=== PATIENT | male | born 1945 | race American Indian/Alaskan Native ===

== ENCOUNTER 2021-10-06 22:16 | Inpatient (IN) | payer MEDICARE ==
--- NOTE | 2021-10-06 23:12 | Emergency Department Report ---
ED General Adult HPI - General Chief complaint: Recheck/Abnormal Lab/Rx Stated complaint: ABNORMAL LABS, LOW HEMAGLOBIN Time Seen by Provider: 10/06/21 22:47 Source: EMS, old records reviewed (Provided by [facility], no previous record here) Mode of arrival: Stretcher Limitations: Physical Limitation - History of Present Illness Initial comments: 76-year-old male presents from [facility] for anemia identified on lab draw. Patient hemoglobin 5.3. Patient denies any significant complaints. He states that he has some mild abdominal pain secondary to constipation but had a bowel movement today. He denies melena, hematochezia, or hematemesis. His current medications include but not limited to aspirin 81 mg and Eliquis 2.5 mg twice daily for DVT. He is oriented to self, states year is 2020, he did not know why he was in the hospital today SC labs 10/06/21 1:50 pm: hematocrit 19.6, MCV 88, BUN 65 creatinine 1.8 Severity scale (0 -10): 0 - Related Data Allergies Allergy/AdvReac Type Severity Reaction Status Date / Time No Known Allergies Allergy Verified 10/06/21 22:36 ED Review of Systems ROS: Stated complaint: ABNORMAL LABS, LOW HEMAGLOBIN Other details as noted in HPI Comment: All other systems reviewed and negative ED Past Medical Hx - Past Medical History Previous Medical History?: Yes Hx Hypertension: Yes Hx Diabetes: Yes Hx Deep Vein Thrombosis: Yes Hx Renal Disease: Yes (Chronic kidney disease stage IV) Hx Dementia: Yes Additional medical history: Obstructive and reflux uropathy, anemia, GERD, sarcopenia, muscle weakness, right humerus fracture, history of COVID-19 with acute respiratory failure/hypoxia - Surgical History Additional Surgical History: Suprapubic cath ED Physical Exam - General Limitations: Physical Limitation - Other Other exam information: General: No acute distress Head: Atraumatic Eyes: normal appearance, pale conjunctiva ENT: pale tongue Neck: Normal appearance, no midline tenderness Chest: Clear to auscultation bilaterally CV: Regular rate and rhythm Abdomen: Soft, normal bowel sounds, nontender, nondistended, no rebound or guarding. Suprapubic catheter Rectal: Light brown stool, guaiac positive without melena or gross blood Back: Normal inspection Extremity: Normal inspection, full range of motion Neuro: Alert O x 2, no facial asymmetry, speech clear Psych: Appropriate behavior ED Course Vital Signs 10/06/21 22:37 Temperature 98.8 F Pulse Rate 88 Respiratory 18 Rate Blood Pressure 124/86 [Left] O2 Sat by Pulse 100 Oximetry - Consultations Consultation #1: 10/07/21 01:[address] Ervin and JUAN on-call who will consult ED Medical Decision Making - Lab Data Result diagrams: 10/06/21 23:13 10/06/21 23:13 Lab Results 10/06/21 10/06/21 10/06/21 Range/Units 23:13 23:13 23:13 WBC 6.6 (4.5-11.0) K/mm3 RBC 2.49 L (3.65-5.03) M/mm3 Hgb 6.7 L (11.8-15.2) gm/dl Hct 21.1 L (35.5-45.6) % MCV 85 (84-94) fl MCH 27 L (28-32) pg MCHC 32 (32-34) % RDW 18.4 H (13.2-15.2) % Plt Count 279 (140-440) K/mm3 Lymph % (Auto) 9.7 L (13.4-35.0) % [place] % (Auto) 5.7 (0.0-7.3) % Eos % (Auto) 1.6 (0.0-4.3) % Baso % (Auto) 1.7 (0.0-1.8) % Lymph # (Auto) 0.6 L (1.2-5.4) K/mm3 [place] # (Auto) 0.4 (0.0-0.8) K/mm3 Eos # (Auto) 0.1 (0.0-0.4) K/mm3 Baso # (Auto) 0.1 (0.0-0.1) K/mm3 Seg Neutrophils % 81.3 H (40.0-70.0) % Seg Neutrophils # 5.4 (1.8-7.7) K/mm3 PT 17.6 H (12.2-14.9) Sec. INR 1.31 H (0.87-1.13) APTT 50.9 H (24.2-36.6) Sec. Sodium 137 (137-145) mmol/L Potassium 4.8 (3.6-5.0) mmol/L Chloride 101.8 (98-107) mmol/L Carbon Dioxide 22 (22-30) mmol/L Anion Gap 18 mmol/L BUN 65 H (9-20) mg/dL Creatinine 1.8 H (0.8-1.3) mg/dL Estimated GFR 37 ml/min BUN/Creatinine Ratio 36 % Glucose 83 (75-100) mg/dL Calcium 9.0 (8.4-10.2) mg/dL Total Bilirubin 0.20 (0.1-1.2) mg/dL AST 17 (5-40) units/L ALT 16 (7-56) units/L Alkaline Phosphatase 101 (35-129) units/L Total Protein 7.3 (6.3-8.2) g/dL Albumin 2.8 L (3.9-5) g/dL Albumin/Globulin Ratio 0.6 % Blood Type 10/06/21 Range/Units 23:13 WBC (4.5-11.0) K/mm3 RBC (3.65-5.03) M/mm3 Hgb (11.8-15.2) gm/dl Hct (35.5-45.6) % MCV (84-94) fl MCH (28-32) pg MCHC (32-34) % RDW (13.2-15.2) % Plt Count (140-440) K/mm3 Lymph % (Auto) (13.4-35.0) % [place] % (Auto) (0.0-7.3) % Eos % (Auto) (0.0-4.3) % Baso % (Auto) (0.0-1.8) % Lymph # (Auto) (1.2-5.4) K/mm3 [place] # (Auto) (0.0-0.8) K/mm3 Eos # (Auto) (0.0-0.4) K/mm3 Baso # (Auto) (0.0-0.1) K/mm3 Seg Neutrophils % (40.0-70.0) % Seg Neutrophils # (1.8-7.7) K/mm3 PT (12.2-14.9) Sec. INR (0.87-1.13) APTT (24.2-36.6) Sec. Sodium (137-145) mmol/L Potassium (3.6-5.0) mmol/L Chloride (98-107) mmol/L Carbon Dioxide (22-30) mmol/L Anion Gap mmol/L BUN (9-20) mg/dL Creatinine (0.8-1.3) mg/dL Estimated GFR ml/min BUN/Creatinine Ratio % Glucose (75-100) mg/dL Calcium (8.4-10.2) mg/dL Total Bilirubin (0.1-1.2) mg/dL AST (5-40) units/L ALT (7-56) units/L Alkaline Phosphatase (35-129) units/L Total Protein (6.3-8.2) g/dL Albumin (3.9-5) g/dL Albumin/Globulin Ratio % Blood Type AB POSITIVE - Medical Decision Making 76[facility] patient with anemia on blood draw. Anemia confirmed via labs here as well as elevated BUN and creatinine. Vital signs stable. 1 unit of PRBCs ordered. Case discussed with GI due to guaiac positive stools. Hospitalist to admit Critical Care Time: No Critical care attestation.: If time is entered above; I have spent that time in minutes in the direct care of this critically ill patient, excluding procedure time. ED Disposition Clinical Impression: Anemia, Guaiac + stool, Elevated BUN, Renal insufficiency Disposition: ADMITTED INPATIENT Is pt being admited?: Yes Condition: Stable Time of Disposition: 01:22 (Dr Healy/hospitalist)
[2021-10-07 00:04] LABS: Basophils # (Auto) 0.1 K/mm3 (0.0-0.1); Basophils % (Auto) 1.7 % (0.0-1.8); Eosinophils # (Auto) 0.1 K/mm3 (0.0-0.4); Eosinophils % (Auto) 1.6 % (0.0-4.3); Hematocrit 21.1 % (35.5-45.6); Hemoglobin 6.7 gm/dl (11.8-15.2); Lymphocytes # (Auto) 0.6 K/mm3 (1.2-5.4); Lymphocytes % (Auto) 9.7 % (13.4-35.0); Mean Corpuscular HGB Conc 32 % (32-34); Mean Corpuscular Volume 85 fl (84-94); Monocytes # (Auto) 0.4 K/mm3 (0.0-0.8); Monocytes % (Auto) 5.7 % (0.0-7.3); Platelet Count 279 K/mm3 (140-440); Red Blood Count 2.49 M/mm3 (3.65-5.03); Red Cell Distribution Width 18.4 % (13.2-15.2)
[2021-10-07 00:21] LABS: Albumin 2.8 g/dL (3.9-5)
[2021-10-07 00:23] LABS: INR 1.31 (0.87-1.13)
[2021-10-07 00:24] LABS: Partial Thromboplastin Time 50.9 Sec. (24.2-36.6)
[2021-10-07] MEDS ORDERED: SODIUM CHLORIDE 0.9% 500 ML 500 ML IV ONE (01:22)
[2021-10-07] MEDS ORDERED: MAGNESIUM HYDROXIDE (MOM) ORAL LIQD UDC PO PRN (01:34)
[2021-10-07] MEDS ORDERED: ONDANSETRON 4 MG/2 ML INJ IV PRN (01:34)
[2021-10-07] MEDS ORDERED: DEXTROSE 50% IN WATER (25GM) 50 ML SYRINGE IV PRN (01:34)
[2021-10-07] MEDS ORDERED: MORPHINE 2 MG/1 ML INJ IV PRN (01:34)
[2021-10-07] MEDS ORDERED: MORPHINE 4 MG/1 ML INJ IV PRN (01:34)
[2021-10-07] MEDS ORDERED: ACETAMINOPHEN 325 MG TAB PO PRN (01:34)
--- NOTE | 2021-10-07 01:46 | History and Physical Report ---
History of Present Illness Date of examination: 10/07/21 Date of admission: 10/07/2021 Chief complaint: Abnormal labs. History of present illness: 76-year-old male resident of [facility] sent to the emergency room today for abnormal labs. Patient's hemoglobin was said to be low. Otherwise patient denies any major complaints except for mild constipation. Denies any fever or chills, no chest pain or shortness of breath, no nausea vomiting. No diarrhea. No hematuria or dysuria. Patient denies any bright red blood per rectum denies any melena. No hematemesis. Patient has been on daily aspirin 81 mg daily and was on Eliquis 2.5 mg twice daily for DVT. Work-up in the emergency room today, labs reveals a hemoglobin of 6.7 and hematocrit 21.1. Stool Hemoccult done in the emergency room was positive. Past History Past Medical History: diabetes, DVT, hypertension, renal failure, other (Obstructive and reflux uropathy, anemia, GERD, sarcopenia, muscle weakness, right humerus fracture, history of COVID-19 with acute respiratory failure/hypoxia) Past Surgical History: Other (Suprapubic catheter) Social history: no significant social history Family history: no significant family history Medications and Allergies Allergies Allergy/AdvReac Type Severity Reaction Status Date / Time No Known Allergies Allergy Verified 10/06/21 22:36 Active Meds: Active Medications Acetaminophen (Acetaminophen 325 Mg Tab) 650 mg PO Q4H PRN PRN Reason: Pain MILD(1-3)/Fever >100.5/SWENSON Dextrose (Dextrose 50% In Water (25gm) 50 Ml Syringe) 50 ml IV Q30MIN PRN; Protocol PRN Reason: Hypoglycemia Sodium Chloride (Nacl 0.9% 1000 Ml) 1,000 mls @ 75 mls/hr IV DIRECT EDUARDA Insulin Human Lispro (Insulin Lispro 100 Unit/Ml) 0 unit SUB-Q ACHS EDUARDA; Protocol Magnesium Hydroxide (Magnesium Hydroxide (Mom) Oral Liqd Udc) 30 ml PO Q4H PRN PRN Reason: Constipation Morphine Sulfate (Morphine 2 Mg/1 Ml Inj) 2 mg IV Q4H PRN PRN Reason: Pain, Moderate (4-6) Morphine Sulfate (Morphine 4 Mg/1 Ml Inj) 4 mg IV Q4H PRN PRN Reason: Pain , Severe (7-10) Ondansetron HCl (Ondansetron 4 Mg/2 Ml Inj) 4 mg IV Q8H PRN PRN Reason: Nausea And Vomiting Sodium Chloride (Sodium Chloride 0.9% 10 Ml Flush Syringe) 10 ml IV BID EDUARDA Sodium Chloride (Sodium Chloride 0.9% 10 Ml Flush Syringe) 10 ml IV PRN PRN PRN Reason: LINE FLUSH Review of Systems Constitutional: no fever, no chills Ears, nose, mouth and throat: no nasal congestion, no sore throat Cardiovascular: no chest pain, no palpitations Respiratory: no cough, no shortness of breath Gastrointestinal: no nausea, no vomiting, no diarrhea Genitourinary Male: no dysuria, no hematuria, no flank pain, no nocturia Musculoskeletal: no neck pain, no low back pain Integumentary: no rash, no pruritis Neurological: no headaches, no confusion Psychiatric: no anxiety, no depression Exam - Constitutional Vitals: Temp Pulse Resp BP Pulse Ox 98.8 F 88 18 124/86 100 10/06/21 22:37 10/06/21 22:37 10/06/21 22:37 10/06/21 22:37 10/06/21 22:37 General appearance: Present: no acute distress, well-nourished, other (Moderate Pallor) - EENT Eyes: Present: PERRL, EOM intact. Absent: scleral icterus ENT: hearing intact, clear oral mucosa, dentition normal - Neck Neck: Present: supple, normal ROM - Respiratory Respiratory effort: normal Respiratory: bilateral: CTA - Cardiovascular Rhythm: regular Heart Sounds: Present: S1 & S2. Absent: gallop, systolic murmur, diastolic murmur, rub, click - Extremities Extremities: no ischemia, pulses intact, No edema, normal temperature, normal color, Full ROM Extremity abnormal: edema Peripheral Pulses: within normal limits - Abdominal General gastrointestinal: Present: soft, non-tender, non-distended, normal bowel sounds. Absent: mass - Integumentary Integumentary: Present: clear, warm, dry, normal turgor. Absent: rash - Musculoskeletal Musculoskeletal: strength equal bilaterally - Psychiatric Psychiatric: appropriate mood/affect, intact judgment & insight, memory intact, cooperative - Neurologic Neurologic: CNII-XII intact, no focal deficits, moves all extremities Results - Labs CBC & Chem 7: 10/06/21 23:13 10/06/21 23:13 Labs: Abnormal lab results 10/06/21 10/06/21 10/06/21 Range/Units 23:13 23:13 23:13 RBC 2.49 L (3.65-5.03) M/mm3 Hgb 6.7 L (11.8-15.2) gm/dl Hct 21.1 L (35.5-45.6) % MCH 27 L (28-32) pg RDW 18.4 H (13.2-15.2) % Lymph % (Auto) 9.7 L (13.4-35.0) % Lymph # (Auto) 0.6 L (1.2-5.4) K/mm3 Seg Neutrophils % 81.3 H (40.0-70.0) % PT 17.6 H (12.2-14.9) Sec. INR 1.31 H (0.87-1.13) APTT 50.9 H (24.2-36.6) Sec. BUN 65 H (9-20) mg/dL Creatinine 1.8 H (0.8-1.3) mg/dL Albumin 2.8 L (3.9-5) g/dL Crossmatch 10/06/21 Range/Units 23:13 RBC (3.65-5.03) M/mm3 Hgb (11.8-15.2) gm/dl Hct (35.5-45.6) % MCH (28-32) pg RDW (13.2-15.2) % Lymph % (Auto) (13.4-35.0) % Lymph # (Auto) (1.2-5.4) K/mm3 Seg Neutrophils % (40.0-70.0) % PT (12.2-14.9) Sec. INR (0.87-1.13) APTT (24.2-36.6) Sec. BUN (9-20) mg/dL Creatinine (0.8-1.3) mg/dL Albumin (3.9-5) g/dL Crossmatch See Detail Assessment and Plan - Patient Problems (1) Anemia Current Visit: Yes Status: Acute (2) GI bleed Current Visit: Yes Status: Acute Plan to address problem: Patient be made n.p.o. we will monitor H&H. We will place consult to gastroenterology for evaluation. (3) Renal insufficiency Current Visit: Yes Status: Acute Plan to address problem: Possibly secondary to the GI bleed. Baseline BUN and creatinine unknown. We will place consult to nephrology for evaluation and recommendation. (4) DVT prophylaxis Current Visit: Yes Status: Acute Plan to address problem: Patient placed on sequential compression device. (5) Full code status Current Visit: Yes Status: Acute Plan to address problem: Patient is full code.
[2021-10-07] MEDS: INSULIN LISPRO 100 UNIT/ML SUB-Q SCH ×4 (07:30→22:52)
[2021-10-07] MEDS ORDERED: SODIUM CHLORIDE 0.9% 500 ML 500 ML IV SCH (09:30)
[2021-10-07 10:25] LABS: Calcium 8.6 mg/dL (8.4-10.2)
[2021-10-07] MEDS: PANTOPRAZOLE 40 MG INJ IV SCH ×2 (11:28→22:52)
--- NOTE | 2021-10-07 15:05 | Ultrasound Report ---
ULTRASOUND RENAL INDICATION / CLINICAL INFORMATION: Renal insufficiency. COMPARISON: None available. FINDINGS: RIGHT KIDNEY: Length = 8.6 cm. - Echogenicity: Increased - Cortical Thickness: Mild thinning. - Hydronephrosis: Mild. - Cyst / Mass: Probable lower pole cyst measuring 1.1 x 0.9 x 1.2 cm. - Stones: None seen. LEFT KIDNEY: Length = 12.0 cm. - Echogenicity: Increased - Cortical Thickness: Normal. - Hydronephrosis: Mild. - Cyst / Mass: None. - Stones: None seen. URINARY BLADDER: Collapsed around a Still catheter. FREE FLUID: None. ADDITIONAL FINDINGS: Incidental finding of a right pleural effusion. IMPRESSION: 1. Atrophic right kidney with findings consistent of bilateral medical renal disease. 2. Bilateral mild hydronephrosis. No sonographic evidence of obstruction.. 3. Incidental finding of a right pleural effusion. Scribed by: Margie Hinson RDMS, RVT Scribed: 10/07/2021 1:46 PM I have reviewed the images, agree with this report, and edited this report as needed. Signer Name: Taye Lyle DO Signed: 10/07/2021 3:00 PM Workstation Name: [email or web address]
[2021-10-07 15:22] LABS: Hematocrit 22.4 % (35.5-45.6); Hemoglobin 7.5 gm/dl (11.8-15.2); Mean Corpuscular HGB Conc 34 % (32-34); Mean Corpuscular Volume 82 fl (84-94); Platelet Count 225 K/mm3 (140-440); Red Blood Count 2.73 M/mm3 (3.65-5.03); Red Cell Distribution Width 18.5 % (13.2-15.2)
--- NOTE | 2021-10-07 15:42 | Gastroenterology Consultation ---
History of Present Illness - Reason for Consult Consult date: 10/07/21 anemia Requesting physician: HUSEYIN MCLAUGHLIN - History of Present Illness This is a 76 yo male with pmh of DVT on eliquis, HTN, DM, and dementia presented from [facility] for low Hemoglobin. No reports of blood in the stools or melena. Patient is not able to give history due to his dementia. Per his son, he has had colonoscopy years ago but does not know the details. Patient has been on daily aspirin 81 mg daily and was on Eliquis 2.5 mg twice daily for DVT. Work-up in the emergency room today, labs reveals a hemoglobin of 6.7 and hematocrit 21.1. Stool Hemoccult done in the emergency room was positive. Past History Past Medical History: diabetes, DVT, hypertension, renal failure, other (Obstructive and reflux uropathy, anemia, GERD, sarcopenia, muscle weakness, right humerus fracture, history of COVID-19 with acute respiratory failure/hypoxia) Past Surgical History: Other (Suprapubic catheter) Social history: no significant social history Family history: no significant family history Medications and Allergies Allergies Allergy/AdvReac Type Severity Reaction Status Date / Time No Known Allergies Allergy Verified 10/06/21 22:36 Active Meds: Active Medications Acetaminophen (Acetaminophen 325 Mg Tab) 650 mg PO Q4H PRN PRN Reason: Pain MILD(1-3)/Fever >100.5/SWENSON Dextrose (Dextrose 50% In Water (25gm) 50 Ml Syringe) 0 ml IV Q30MIN PRN; Protocol PRN Reason: Hypoglycemia Dextrose (Dextrose 10% *Hypoglycemia) 0 ml IV PRN PRN PRN Reason: Hypoglycemia Sodium Chloride (Nacl 0.9% 1000 Ml) 1,000 mls @ 75 mls/hr IV DIRECT EDUARDA Sodium Chloride (Nacl 0.9% 500 Ml) 500 mls @ 0 mls/hr IV ONCE@0930 [facility] Stop: 10/07/21 18:00 Last Admin: 10/07/21 14:15 Dose: 9,999 mls/hr Insulin Human Lispro (Insulin Lispro 100 Unit/Ml) 0 unit SUB-Q ACHS EDUARDA; Protocol Last Admin: 10/07/21 11:29 Dose: Not Given Magnesium Hydroxide (Magnesium Hydroxide (Mom) Oral Liqd Udc) 30 ml PO Q4H PRN PRN Reason: Constipation Morphine Sulfate (Morphine 2 Mg/1 Ml Inj) 2 mg IV Q4H PRN PRN Reason: Pain, Moderate (4-6) Morphine Sulfate (Morphine 4 Mg/1 Ml Inj) 4 mg IV Q4H PRN PRN Reason: Pain , Severe (7-10) Ondansetron HCl (Ondansetron 4 Mg/2 Ml Inj) 4 mg IV Q8H PRN PRN Reason: Nausea And Vomiting Pantoprazole Sodium (Pantoprazole 40 Mg Inj) 40 mg IV BID [facility] Last Admin: 10/07/21 11:28 Dose: 40 mg Sodium Chloride (Sodium Chloride 0.9% 10 Ml Flush Syringe) 10 ml IV BID [facility] Last Admin: 10/07/21 11:29 Dose: 10 ml Sodium Chloride (Sodium Chloride 0.9% 50 Ml Ivpb) 10 ml IV PRN PRN PRN Reason: FLUSH Review of Systems - Review of Systems ROS unobtainable: due to mental status Exam - Constitutional Vital Signs: Temp Pulse Resp BP Pulse Ox 98.8 F 78 17 123/68 100 10/06/21 22:37 10/07/21 14:29 10/07/21 14:15 10/07/21 14:15 10/07/21 14:19 General appearance: no acute distress - EENT Eyes: EOM intact ENT: hearing intact - Neck Neck: supple - Respiratory Respiratory effort: normal - Cardiovascular Rhythm: regular Heart Sounds: Present: S1 & S2 Extremities: No edema - Gastrointestinal General gastrointestinal: Present: soft, non-tender, non-distended Rectal Exam: normal rectal tone, stool brown - Integumentary Integumentary: Present: clear, warm - Neurologic Neurological: disoriented - Psychiatric Psychiatric: cooperative - Labs CBC & Chem 7: 10/07/21 14:55 10/07/21 09:22 Lab Results: Laboratory Results - last 24 hr 10/06/21 10/06/21 10/06/21 23:13 23:13 23:13 WBC 6.6 RBC 2.49 L Hgb 6.7 L Hct 21.1 L MCV 85 MCH 27 L MCHC 32 RDW 18.4 H Plt Count 279 Lymph % (Auto) 9.7 L [place] % (Auto) 5.7 Eos % (Auto) 1.6 Baso % (Auto) 1.7 Lymph # (Auto) 0.6 L [place] # (Auto) 0.4 Eos # (Auto) 0.1 Baso # (Auto) 0.1 Seg Neutrophils % 81.3 H Seg Neutrophils # 5.4 PT 17.6 H INR 1.31 H APTT 50.9 H Sodium 137 Potassium 4.8 Chloride 101.8 Carbon Dioxide 22 Anion Gap 18 BUN 65 H Creatinine 1.8 H Estimated GFR 37 BUN/Creatinine Ratio 36 Glucose 83 POC Glucose Calcium 9.0 Total Bilirubin 0.20 AST 17 ALT 16 Alkaline Phosphatase 101 Total Protein 7.3 Albumin 2.8 L Albumin/Globulin Ratio 0.6 Blood Type Antibody Screen Crossmatch 10/06/21 10/07/21 10/07/21 23:13 07:44 09:22 WBC RBC Hgb Hct MCV MCH MCHC RDW Plt Count Lymph % (Auto) [place] % (Auto) Eos % (Auto) Baso % (Auto) Lymph # (Auto) [place] # (Auto) Eos # (Auto) Baso # (Auto) Seg Neutrophils % Seg Neutrophils # PT INR APTT Sodium 133 L Potassium 4.3 Chloride 101.0 Carbon Dioxide 20 L Anion Gap 16 BUN 60 H Creatinine 1.7 H Estimated GFR 48 BUN/Creatinine Ratio 35 Glucose 96 POC Glucose 75 Calcium 8.6 Total Bilirubin AST ALT Alkaline Phosphatase Total Protein Albumin Albumin/Globulin Ratio Blood Type AB POSITIVE Antibody Screen Negative Crossmatch See Detail 10/07/21 10/07/21 11:25 14:55 WBC 6.1 RBC 2.73 L Hgb 7.5 L Hct 22.4 L MCV 82 L MCH 28 MCHC 34 RDW 18.5 H Plt Count 225 Lymph % (Auto) [place] % (Auto) Eos % (Auto) Baso % (Auto) Lymph # (Auto) [place] # (Auto) Eos # (Auto) Baso # (Auto) Seg Neutrophils % Seg Neutrophils # PT INR APTT Sodium Potassium Chloride Carbon Dioxide Anion Gap BUN Creatinine Estimated GFR BUN/Creatinine Ratio Glucose POC Glucose 78 Calcium Total Bilirubin AST ALT Alkaline Phosphatase Total Protein Albumin Albumin/Globulin Ratio Blood Type Antibody Screen Crossmatch Assessment and Plan # Anemia - unknown baseline Hgb. - Hgg at 6 on admission. - No overt GI bleeding. - Rectal exam with brown stools. Rec - monitor H/H. - clear liquids today. - hold anticoagulation. - check iron studies. - monitor for signs of bleeding. - may need EGD/colonoscopy either inpatient vs outpatient for anemia work up based on clinical progress. It may be difficult to prep.
--- NOTE | 2021-10-07 15:56 | Event Note ---
Date: 10/07/21 Patient seen and examined This is a 76 yo male with pmh of DVT on eliquis, HTN, DM, and dementia [facility]. Patient has been on daily aspirin 81 mg daily and was on Eliquis 2.5 mg twice daily for DVT. Work-up in the emergency room reveals a hemoglobin of 6.7 and hematocrit 21.1 with elevated Cr Stool Hemoccult done in the emergency room was positive. - cont to monitor H/H. transfuse one unit PRBC, GI consulted - hold anticoagulation. - monitor for signs of bleeding. - may need EGD/colonoscopy, will follow GI recommendation --cot iv fluid, bmp in the am It took me about 28 minutes to reevaluate and reasses this patient, discussed with RN/CM, review medical documents, lab results, imaging, medication list and placing order.
[2021-10-07] MEDS: DEXTROSE 10% *Hypoglycemia IV PRN ×2 (16:45→20:00)
[2021-10-07 17:13] LABS: Iron 30 ug/dL (49-181); Total Iron Binding Capacity 107 mcg/dL (250-450)
[2021-10-07] MEDS: SODIUM CHLORIDE 0.9% 1000 ML 1,000 ML IV SCH (17:13)
[2021-10-07] MEDS ORDERED: SODIUM CHLORIDE 0.9% 500 ML 500 ML ONE (20:33)
--- NOTE | 2021-10-07 20:51 | Consultation ---
History of Present Illness - Reason for Consult Consult date: 10/07/21 acute renal failure, chronic renal failure Requesting physician: HUSEYIN MCLAUGHLIN - History of Present Illness 76-year-old male [place] resident with history of Hypertension, Type 2 DM, DVT on eliquis, dementia who was sent to the emergency room today for evaluation of abnormal labs. Labs showed significant anemia with Hb as low a 6.7. Patient Denies any fever or chills, no chest pain or shortness of breath, no nausea, vomiting, diarrhea, hematuria or dysuria. Patient denies any bright red blood per rectum denies any melena. No hematemesis. Patient has been on daily aspirin 81 mg daily and on Eliquis 2.5 mg twice daily for DVT. Stool Hemoccult done in the emergency room was positive. Patient was admitted for further GI evaluation. Labs also showed elevated BUN/Cr at 65/1.8mg/dl for which renal consult is requested. No previous of renal disease reported. Past History Past Medical History: diabetes, DVT, hypertension, renal failure, other (Obstructive and reflux uropathy, anemia, GERD, sarcopenia, muscle weakness, right humerus fracture, history of COVID-19 with acute respiratory failure/hypoxia) Past Surgical History: Other (Suprapubic catheter) Social history: no significant social history Family history: no significant family history Medications and Allergies Allergies Allergy/AdvReac Type Severity Reaction Status Date / Time No Known Allergies Allergy Verified 10/06/21 22:36 Active Meds: Active Medications Acetaminophen (Acetaminophen 325 Mg Tab) 650 mg PO Q4H PRN PRN Reason: Pain MILD(1-3)/Fever >100.5/SWENSON Dextrose (Dextrose 50% In Water (25gm) 50 Ml Syringe) 0 ml IV Q30MIN PRN; Protocol PRN Reason: Hypoglycemia Dextrose (Dextrose 10% *Hypoglycemia) 0 ml IV PRN PRN PRN Reason: Hypoglycemia Last Admin: 10/07/21 16:45 Dose: 50 ml Sodium Chloride (Nacl 0.9% 1000 Ml) 1,000 mls @ 75 mls/hr IV DIRECT EDUARDA Last Admin: 10/07/21 17:13 Dose: 75 mls/hr Insulin Human Lispro (Insulin Lispro 100 Unit/Ml) 0 unit SUB-Q ACHS EDUARDA; Protocol Last Admin: 10/07/21 16:55 Dose: Not Given Magnesium Hydroxide (Magnesium Hydroxide (Mom) Oral Liqd Udc) 30 ml PO Q4H PRN PRN Reason: Constipation Morphine Sulfate (Morphine 2 Mg/1 Ml Inj) 2 mg IV Q4H PRN PRN Reason: Pain, Moderate (4-6) Morphine Sulfate (Morphine 4 Mg/1 Ml Inj) 4 mg IV Q4H PRN PRN Reason: Pain , Severe (7-10) Ondansetron HCl (Ondansetron 4 Mg/2 Ml Inj) 4 mg IV Q8H PRN PRN Reason: Nausea And Vomiting Pantoprazole Sodium (Pantoprazole 40 Mg Inj) 40 mg IV BID [facility] Last Admin: 10/07/21 11:28 Dose: 40 mg Sodium Chloride (Sodium Chloride 0.9% 10 Ml Flush Syringe) 10 ml IV BID [facility] Last Admin: 10/07/21 11:29 Dose: 10 ml Sodium Chloride (Sodium Chloride 0.9% 50 Ml Ivpb) 10 ml IV PRN PRN PRN Reason: FLUSH Review of Systems Constitutional: fatigue, weakness, malaise Hematologic/Lymphatic: other (anemia ) Exam - Vital Signs Vital signs: Vital Signs Temp Pulse Resp BP Pulse Ox 98.8 F 88 18 124/86 100 10/06/21 22:37 10/06/21 22:37 10/06/21 22:37 10/06/21 22:37 10/06/21 22:37 - General Appearance General appearance: well-developed, appears stated age EENT: ATNC, PERRL, mucous membranes moist Neck: Present: neck supple Respiratory: Clear to Ascultation Heart: regular, S1S2 Gastrointestinal: Present: normoactive bowel sounds Integumentary: no rash Neurologic: no focal deficit, strength 5/5, CN 3-12 intact Psychiatric: mood/affect appropriate, cooperative Results - Lab Results 10/07/21 14:55 10/07/21 09:22 Most recent lab results Calcium 8.6 mg/dL (8.4-10.2) 10/07/21 09:22 Assessment and Plan - Patient Problems (1) Acute kidney injury Current Visit: Yes Status: Acute Plan to address problem: LETY most likely secondary to pre-renal azotemia with out of proportion elevation of BUN compared to Cr, in the setting of anemia/GI bleed. Check urine lytes, urine Protein/Cr ratio. Transfuse with PRBCs to target Hb > 7, cont IV NS at 75ml/hr. Strict I/Os, supportive care for LETY avoid nephrotoxins, NSIADs, IV contrast. Renal US showed increased echogenicity bilaterally with evidence of atrophic R kidney, consistent with underlying CKD. Will monitor I/Os, lytes, renal parameters closely and make further recommendations. (2) Anemia Current Visit: Yes Status: Acute Plan to address problem: rule out acute hemorrhagic anemia vs anemia of chronic illness. Plan for 2PRBC transfusion to target Hb > 7.check iron stores/ferritin level (3) GI bleed Current Visit: Yes Status: Acute Plan to address problem: follow GI recommendations
[2021-10-07 23:24] LABS: Hematocrit 25.8 % (35.5-45.6); Hemoglobin 8.4 gm/dl (11.8-15.2)
[2021-10-08 05:27] LABS: Basophils % (Auto) 0.4 % (0.0-1.8); Eosinophils # (Auto) 0.1 K/mm3 (0.0-0.4); Eosinophils % (Auto) 1.2 % (0.0-4.3); Hematocrit 26.6 % (35.5-45.6); Hemoglobin 8.8 gm/dl (11.8-15.2); Lymphocytes # (Auto) 0.9 K/mm3 (1.2-5.4); Lymphocytes % (Auto) 18.1 % (13.4-35.0); Mean Corpuscular HGB Conc 33 % (32-34); Mean Corpuscular Volume 85 fl (84-94); Monocytes # (Auto) 0.5 K/mm3 (0.0-0.8); Monocytes % (Auto) 10.3 % (0.0-7.3); Platelet Count 226 K/mm3 (140-440); Red Blood Count 3.12 M/mm3 (3.65-5.03); Red Cell Distribution Width 18.1 % (13.2-15.2)
[2021-10-08 05:42] LABS: Calcium 8.6 mg/dL (8.4-10.2)
[2021-10-08] MEDS: DEXTROSE 10% *Hypoglycemia IV PRN (06:20)
[2021-10-08] MEDS: INSULIN LISPRO 100 UNIT/ML SUB-Q SCH ×3 (11:07→16:45)
[2021-10-08] MEDS: PANTOPRAZOLE 40 MG INJ IV SCH ×2 (11:07→22:00)
--- NOTE | 2021-10-08 12:42 | Gastroenterology Progress Note ---
Assessment and Plan # Anemia - unknown baseline Hgb. - Hgb at 6 on admission and trended up to 8 after transfusion. - No overt GI bleeding. - Rectal exam with brown stools. - iron studies with low iron. Rec - monitor H/H. - clear liquids today. - hold anticoagulation. - monitor for signs of bleeding. - will plan for EGD/colonoscopy tomorrow. Golytely prep and NPO MN. - spoke with patient's son on the phone. discussed with nursing on the floor. Subjective Date of service: 10/08/21 Interval history: Patient remains confused. No BM per nursing. No abdominal pain. Objective - Constitutional Vitals: Temp Pulse Resp BP Pulse Ox 99.1 F 72 20 127/89 98 10/08/21 11:00 10/08/21 11:00 10/08/21 11:00 10/08/21 11:00 10/08/21 11:00 General appearance: no acute distress - EENT Eyes: EOM intact ENT: hearing intact - Neck Neck: supple - Respiratory Respiratory effort: normal - Cardiovascular Rhythm: regular Heart Sounds: Present: S1 & S2 - Gastrointestinal General gastrointestinal: Present: soft, non-tender, non-distended - Integumentary Integumentary: Present: clear, warm - Neurologic Neurological: disoriented - Psychiatric Psychiatric: appropriate mood/affect - Labs CBC & Chem 7: 10/08/21 04:17 10/08/21 04:17 Labs: Laboratory Results - last 24 hr 10/06/21 10/07/21 10/07/21 23:13 14:55 16:30 WBC 6.1 RBC 2.73 L Hgb 7.5 L Hct 22.4 L MCV 82 L MCH 28 MCHC 34 RDW 18.5 H Plt Count 225 Lymph % (Auto) [place] % (Auto) Eos % (Auto) Baso % (Auto) Lymph # (Auto) [place] # (Auto) Eos # (Auto) Baso # (Auto) Seg Neutrophils % Seg Neutrophils # Sodium Potassium Chloride Carbon Dioxide Anion Gap BUN Creatinine Estimated GFR BUN/Creatinine Ratio Glucose POC Glucose Calcium Iron 30 L TIBC 107 L Ferritin Blood Type AB POSITIVE Antibody Screen Negative Crossmatch See Detail 10/07/21 10/07/21 10/07/21 16:30 16:32 20:00 WBC RBC Hgb Hct MCV MCH MCHC RDW Plt Count Lymph % (Auto) [place] % (Auto) Eos % (Auto) Baso % (Auto) Lymph # (Auto) [place] # (Auto) Eos # (Auto) Baso # (Auto) Seg Neutrophils % Seg Neutrophils # Sodium Potassium Chloride Carbon Dioxide Anion Gap BUN Creatinine Estimated GFR BUN/Creatinine Ratio Glucose POC Glucose 73 78 Calcium Iron TIBC Ferritin 1781.0 H Blood Type Antibody Screen Crossmatch 10/07/21 10/07/21 10/08/21 22:37 23:09 04:17 WBC 4.8 RBC 3.12 L Hgb 8.4 L 8.8 L Hct 25.8 L 26.6 L MCV 85 MCH 28 MCHC 33 RDW 18.1 H Plt Count 226 Lymph % (Auto) 18.1 [place] % (Auto) 10.3 H Eos % (Auto) 1.2 Baso % (Auto) 0.4 Lymph # (Auto) 0.9 L [place] # (Auto) 0.5 Eos # (Auto) 0.1 Baso # (Auto) 0.0 Seg Neutrophils % 70.0 Seg Neutrophils # 3.4 Sodium Potassium Chloride Carbon Dioxide Anion Gap BUN Creatinine Estimated GFR BUN/Creatinine Ratio Glucose POC Glucose 109 H Calcium Iron TIBC Ferritin Blood Type Antibody Screen Crossmatch 10/08/21 04:17 WBC RBC Hgb Hct MCV MCH MCHC RDW Plt Count Lymph % (Auto) [place] % (Auto) Eos % (Auto) Baso % (Auto) Lymph # (Auto) [place] # (Auto) Eos # (Auto) Baso # (Auto) Seg Neutrophils % Seg Neutrophils # Sodium 137 Potassium 4.6 Chloride 103.9 Carbon Dioxide 21 L Anion Gap 17 BUN 52 H Creatinine 1.7 H Estimated GFR 48 BUN/Creatinine Ratio 31 Glucose 73 L POC Glucose Calcium 8.6 Iron TIBC Ferritin Blood Type Antibody Screen Crossmatch
[2021-10-08] MEDS: POLYETHYLENE GLYCOL 3350 17 GM POWDER PO SCH ×2 (13:58→22:00)
[2021-10-08 15:57] LABS: Hematocrit 27.4 % (35.5-45.6); Hemoglobin 9.4 gm/dl (11.8-15.2)
[2021-10-08] MEDS ORDERED: POLYETHYLENE GLYCOL/ELECT SOLN 4000 ML PO NR (16:00)
[2021-10-08] MEDS: SODIUM CHLORIDE 0.9% 1000 ML 1,000 ML IV SCH (16:44)
--- NOTE | 2021-10-08 16:55 | Progress Note ---
Assessment and Plan - Patient Problems (1) Acute kidney injury Current Visit: Yes Status: Acute Plan to address problem: LETY most likely secondary to pre-renal azotemia with out of proportion elevation of BUN compared to Cr, in the setting of anemia/GI bleed. Check urine lytes, urine Protein/Cr ratio. Hb improved to > 9 s/p 2PRBC transfusion. cont IV NS at 75ml/hr. Strict I/Os, supportive care for LETY avoid nephrotoxins, NSIADs, IV contrast. Renal US showed increased echogenicity bilaterally with evidence of atrophic R kidney, consistent with underlying CKD. Will monitor I/Os, lytes, renal parameters closely and make further recommendations. (2) Anemia Current Visit: Yes Status: Acute Plan to address problem: rule out acute hemorrhagic anemia vs anemia of chronic illness. S/p 2PRBC transfusion (3) GI bleed Current Visit: Yes Status: Acute Plan to address problem: follow GI recommendations Subjective Date of service: 10/08/21 Principal diagnosis: LETY Interval history: Patient awake, alert, denies fever, chills, n/v/d, melena, bloody vomiting Objective - Vital Signs Vital signs: Vital Signs - 12hr 10/08/21 10/08/21 10/08/21 05:01 05:15 05:31 Temperature Pulse Rate 71 72 72 Respiratory 16 12 16 Rate Blood Pressure 153/90 153/90 150/93 Blood Pressure [Left] O2 Sat by Pulse 97 98 98 Oximetry 10/08/21 10/08/21 10/08/21 05:45 06:15 06:45 Temperature Pulse Rate 72 Respiratory 13 Rate Blood Pressure 150/93 150/96 152/101 Blood Pressure [Left] O2 Sat by Pulse 97 98 98 Oximetry 10/08/21 10/08/21 10/08/21 07:01 07:15 07:31 Temperature Pulse Rate 76 Respiratory 17 Rate Blood Pressure 157/95 157/95 151/93 Blood Pressure [Left] O2 Sat by Pulse 97 98 98 Oximetry 10/08/21 10/08/21 11:00 15:06 Temperature 99.1 F Pulse Rate 72 Respiratory 20 Rate Blood Pressure Blood Pressure 127/89 [Left] O2 Sat by Pulse 98 97 Oximetry - General Appearance General appearance: well-developed, well-nourished, appears stated age EENT: ATNC, PERRL, mucous membranes moist Neck: no JVD Respiratory: Present: Clear to Ascultation Cardiology: regular, S1S2 Gastrointestinal: normoactive bowel sounds Integumentary: no rash, other (++ RUE edema ) Neurologic: no focal deficit, alert and oriented x3, strength 5/5 Psychiatric: mood/affect appropriate - Lab 10/08/21 15:23 10/08/21 04:17 Most recent lab results Calcium 8.6 mg/dL (8.4-10.2) 10/08/21 04:17 Medications & Allergies - Medications Allergies/Adverse Reactions: Allergies No Known Allergies Allergy (Verified 10/06/21 22:36) Home Medications: Home Medications Medication Instructions Recorded Confirmed Last Taken Type Acetaminophen [Tylenol] 650 mg PO Q8HR PRN 10/08/21 10/08/21 Unknown History Amlodipine Besylate [Norvasc] 5 mg PO DAILY 10/08/21 10/08/21 Unknown History Apixaban [Eliquis] 2.5 mg PO BID 10/08/21 10/08/21 Unknown History Ascorbic Acid [Vitamin C with Cassandra 500 mg PO BID 10/08/21 10/08/21 Unknown History Hips] Aspirin BABY CHEW TAB 81 mg PO DAILY 10/08/21 10/08/21 Unknown History AtorvaSTATin [Lipitor] 10 mg PO QHS 10/08/21 10/08/21 Unknown History Cyanocobalamin (Vitamin B-12) 1,000 mcg PO DAILY 10/08/21 10/08/21 Unknown History [Vitamin B-12] Cymbalta 60 mg PO DAILY 10/08/21 10/08/21 Unknown History Divalproex Sodium [Depakote 125 mg PO TID 10/08/21 10/08/21 Unknown History Sprinkle] Docusate Sodium [Colace] 100 mg PO BID PRN 10/08/21 10/08/21 Unknown History Folic Acid [Folvite] 1 mg PO QDAY 10/08/21 10/08/21 Unknown History Gabapentin 100 mg PO TID 10/08/21 10/08/21 Unknown History Lactobacillus Combination No.4 1 cap PO BID 10/08/21 10/08/21 Unknown History [Probiotic] Mirtazapine [Remeron] 15 mg PO HS 10/08/21 10/08/21 Unknown History Omeprazole 20 mg PO DAILY 10/08/21 10/08/21 Unknown History Patiromer Calcium Sorbitex 16.8 gram PO DAILY 10/08/21 10/08/21 Unknown History [Veltassa] QUEtiapine [SEROquel] 0.5 tab PO BID 10/08/21 10/08/21 Unknown History Ramelteon [Rozerem] 8 mg PO QHS 10/08/21 10/08/21 Unknown History Sennosides [Senna] 2 cap PO HS 10/08/21 10/08/21 Unknown History carvediloL 6.25 mg PO BID 10/08/21 10/08/21 Unknown History levoFLOXacin [Levaquin] 250 mg PO QDAY 10/08/21 10/08/21 Unknown History Active Medications: Generic Name Dose Route Start Last Admin Trade Name Freq PRN Reason Stop Dose Admin Acetaminophen 650 mg 10/07/21 01:34 Acetaminophen 325 Mg Tab PO Q4H PRN Pain MILD(1-3)/Fever >100.5/SWENSON Bisacodyl 10 mg 10/08/21 13:00 10/08/21 14:01 Bisacodyl 5 Mg Tab PO 10 mg QDAY EDUARDA Administration Dextrose 0 ml 10/07/21 01:34 Dextrose 50% In Water (25gm) 50 Ml Syringe IV Q30MIN PRN Hypoglycemia Protocol Dextrose 0 ml 10/07/21 11:29 10/08/21 06:20 Dextrose 10% *Hypoglycemia IV 50 ml PRN PRN Administration Hypoglycemia Sodium Chloride 1,000 mls @ 75 mls/hr 10/07/21 01:45 10/08/21 16:44 Nacl 0.9% 1000 Ml IV 75 mls/hr DIRECT EDUARDA Administration Insulin Human Lispro 0 unit 10/07/21 07:30 10/08/21 16:45 Insulin Lispro 100 Unit/Ml SUB-Q Not Given ACHS EDUARDA Protocol Magnesium Hydroxide 30 ml 10/07/21 01:34 Magnesium Hydroxide (Mom) Oral Liqd Udc PO Q4H PRN Constipation Morphine Sulfate 2 mg 10/07/21 01:34 Morphine 2 Mg/1 Ml Inj IV Q4H PRN Pain, Moderate (4-6) Morphine Sulfate 4 mg 10/07/21 01:34 Morphine 4 Mg/1 Ml Inj IV Q4H PRN Pain , Severe (7-10) Ondansetron HCl 4 mg 10/07/21 01:34 Ondansetron 4 Mg/2 Ml Inj IV Q8H PRN Nausea And Vomiting Pantoprazole Sodium 40 mg 10/07/21 10:00 10/08/21 11:07 Pantoprazole 40 Mg Inj IV 40 mg BID EDUARDA Administration Polyethylene Glycol 17 gm 10/08/21 13:00 10/08/21 13:58 Polyethylene Glycol 3350 17 Gm Powder PO 17 gm BID EDUARDA Administration Polyethylene Glycol/Electrolytes 4,000 ml 10/08/21 16:00 10/08/21 16:45 Polyethylene Glycol/Elect Soln 4000 Ml PO 10/08/21 22:00 4,000 ml ONCE@1600 NR Administration Sodium Chloride 10 ml 10/07/21 10:00 10/08/21 11:12 Sodium Chloride 0.9% 10 Ml Flush Syringe IV Not Given BID EDUARDA Sodium Chloride 10 ml 10/07/21 15:18 Sodium Chloride 0.9% 50 Ml Ivpb IV PRN PRN FLUSH
--- NOTE | 2021-10-08 17:33 | Progress Note ---
Assessment and Plan Assessment and plan: --Anemia Current Visit: Yes Status: Acute Hb 6.7 on admission, received 2 units PRBC transfusion Improved to 9.4, no external evidence of bleeding GI evaluation noted and appreciated Iron profile, low iron levels --History of GI bleed Current Visit: Yes Status: Acute No new episodes of bleeding GI evaluation noted possible endoscopy tomorrow IV Protonix, n.p.o. from midnight --Acute kidney injury Current Visit: Yes Status: Acute Possibly secondary to the GI bleed. Vasomotor nephropathy , closely monitor renal function Avoid nephrotoxins --Severe protein calorie malnutrition; Current Visit: Yes Status: Acute Hypoalbuminemia, nutrition supplements, nutrition consult, Closely monitor --DVT prophylaxis Current Visit: Yes Status: Acute Patient placed on sequential compression device. --Full code status Current Visit: Yes Status: Acute Patient is full code. We will closely monitor the patient and adjust management as needed Plan of care reviewed with the patient and his nurse History Interval history: I have seen and examined the patient at the bedside Patient's chart and medications reviewed patient is severely emaciated,And malnourished Mild distress Hospitalist Physical - Constitutional Vitals: Temp Pulse Resp BP Pulse Ox 99.1 F 72 20 127/89 97 10/08/21 11:00 10/08/21 11:00 10/08/21 11:00 10/08/21 11:00 10/08/21 15:06 General appearance: Present: mild distress, cachectic, disheveled, other (Moderate Pallor) - EENT Eyes: Present: PERRL, EOM intact - Neck Neck: Present: supple, normal ROM - Respiratory Respiratory effort: normal Respiratory: bilateral: diminished, negative: rales, rhonchi, wheezing - Cardiovascular Rhythm: regular Heart Sounds: Present: S1 & S2 - Extremities Extremities: no ischemia, No edema - Abdominal General gastrointestinal: soft, non-tender, non-distended, normal bowel sounds - Integumentary Integumentary: Present: clear, warm - Psychiatric Psychiatric: other (Confused minimally communicative) - Neurologic Neurologic: other (Confused minimally communicative) Results - Labs CBC & Chem 7: 10/08/21 15:23 10/08/21 04:17 Labs: Laboratory Last Values WBC 4.8 K/mm3 (4.5-11.0) 10/08/21 04:17 RBC 3.12 M/mm3 (3.65-5.03) L 10/08/21 04:17 Hgb 9.4 gm/dl (11.8-15.2) L 10/08/21 15:23 Hct 27.4 % (35.5-45.6) L 10/08/21 15:23 MCV 85 fl (84-94) 10/08/21 04:17 MCH 28 pg (28-32) 10/08/21 04:17 MCHC 33 % (32-34) 10/08/21 04:17 RDW 18.1 % (13.2-15.2) H 10/08/21 04:17 Plt Count 226 K/mm3 (140-440) 10/08/21 04:17 Lymph % (Auto) 18.1 % (13.4-35.0) 10/08/21 04:17 [place] % (Auto) 10.3 % (0.0-7.3) H 10/08/21 04:17 Eos % (Auto) 1.2 % (0.0-4.3) 10/08/21 04:17 Baso % (Auto) 0.4 % (0.0-1.8) 10/08/21 04:17 Lymph # (Auto) 0.9 K/mm3 (1.2-5.4) L 10/08/21 04:17 [place] # (Auto) 0.5 K/mm3 (0.0-0.8) 10/08/21 04:17 Eos # (Auto) 0.1 K/mm3 (0.0-0.4) 10/08/21 04:17 Baso # (Auto) 0.0 K/mm3 (0.0-0.1) 10/08/21 04:17 Seg Neutrophils % 70.0 % (40.0-70.0) 10/08/21 04:17 Seg Neutrophils # 3.4 K/mm3 (1.8-7.7) 10/08/21 04:17 PT 17.6 Sec. (12.2-14.9) H 10/06/21 23:13 INR 1.31 (0.87-1.13) H 10/06/21 23:13 APTT 50.9 Sec. (24.2-36.6) H 10/06/21 23:13 Sodium 137 mmol/L (137-145) 10/08/21 04:17 Potassium 4.6 mmol/L (3.6-5.0) 10/08/21 04:17 Chloride 103.9 mmol/L (98-107) 10/08/21 04:17 Carbon Dioxide 21 mmol/L (22-30) L 10/08/21 04:17 Anion Gap 17 mmol/L 10/08/21 04:17 BUN 52 mg/dL (9-20) H 10/08/21 04:17 Creatinine 1.7 mg/dL (0.8-1.3) H 10/08/21 04:17 Estimated GFR 48 ml/min 10/08/21 04:17 BUN/Creatinine Ratio 31 % 10/08/21 04:17 Glucose 73 mg/dL (75-100) L 10/08/21 04:17 POC Glucose 72 mg/dL (70-105) 10/08/21 16:28 Calcium 8.6 mg/dL (8.4-10.2) 10/08/21 04:17 Iron 30 ug/dL (49-181) L 10/07/21 16:30 TIBC 107 mcg/dL (250-450) L 10/07/21 16:30 Ferritin 1781.0 ng/mL (30.0-300.0) H 10/07/21 16:30 Total Bilirubin 0.20 mg/dL (0.1-1.2) 10/06/21 23:13 AST 17 units/L (5-40) 10/06/21 23:13 ALT 16 units/L (7-56) 10/06/21 23:13 Alkaline Phosphatase 101 units/L (35-129) 10/06/21 23:13 Total Protein 7.3 g/dL (6.3-8.2) 10/06/21 23:13 Albumin 2.8 g/dL (3.9-5) L 10/06/21 23:13 Albumin/Globulin Ratio 0.6 % 10/06/21 23:13 Blood Type AB POSITIVE 10/06/21 23:13 Antibody Screen Negative 10/06/21 23:13 Crossmatch See Detail 10/06/21 23:13 Active Medications - Current Medications Current Medications: Generic Name Dose Route Start Last Admin Trade Name Freq PRN Reason Stop Dose Admin Acetaminophen 650 mg 10/07/21 01:34 Acetaminophen 325 Mg Tab PO Q4H PRN Pain MILD(1-3)/Fever >100.5/SWENSON Bisacodyl 10 mg 10/08/21 13:00 10/08/21 14:01 Bisacodyl 5 Mg Tab PO 10 mg QDAY EDUARDA Administration Dextrose 0 ml 10/07/21 01:34 Dextrose 50% In Water (25gm) 50 Ml Syringe IV Q30MIN PRN Hypoglycemia Protocol Dextrose 0 ml 10/07/21 11:29 10/08/21 06:20 Dextrose 10% *Hypoglycemia IV 50 ml PRN PRN Administration Hypoglycemia Sodium Chloride 1,000 mls @ 75 mls/hr 10/07/21 01:45 10/08/21 16:44 Nacl 0.9% 1000 Ml IV 75 mls/hr DIRECT EDUARDA Administration Insulin Human Lispro 0 unit 10/07/21 07:30 10/08/21 16:45 Insulin Lispro 100 Unit/Ml SUB-Q Not Given ACHS [facility] Protocol Magnesium Hydroxide 30 ml 10/07/21 01:34 Magnesium Hydroxide (Mom) Oral Liqd Udc PO Q4H PRN Constipation Morphine Sulfate 2 mg 10/07/21 01:34 Morphine 2 Mg/1 Ml Inj IV Q4H PRN Pain, Moderate (4-6) Morphine Sulfate 4 mg 10/07/21 01:34 Morphine 4 Mg/1 Ml Inj IV Q4H PRN Pain , Severe (7-10) Ondansetron HCl 4 mg 10/07/21 01:34 Ondansetron 4 Mg/2 Ml Inj IV Q8H PRN Nausea And Vomiting Pantoprazole Sodium 40 mg 10/07/21 10:00 10/08/21 11:07 Pantoprazole 40 Mg Inj IV 40 mg BID EDUARDA Administration Polyethylene Glycol 17 gm 10/08/21 13:00 10/08/21 13:58 Polyethylene Glycol 3350 17 Gm Powder PO 17 gm BID EDUARDA Administration Polyethylene Glycol/Electrolytes 4,000 ml 10/08/21 16:00 10/08/21 16:45 Polyethylene Glycol/Elect Soln 4000 Ml PO 10/08/21 22:00 4,000 ml ONCE@1600 NR Administration Sodium Chloride 10 ml 10/07/21 10:00 10/08/21 11:12 Sodium Chloride 0.9% 10 Ml Flush Syringe IV Not Given BID EDUARDA Sodium Chloride 10 ml 10/07/21 15:18 Sodium Chloride 0.9% 50 Ml Ivpb IV PRN PRN FLUSH Nutrition/Malnutrition Assess - Dietary Evaluation Nutrition/Malnutrition Findings: Nutrition Notes Start: 10/07/21 10:51 Freq: Status: Active Protocol: Document 10/07/21 10:51 JOE (Rec: 10/07/21 11:07 JOE [id number]) Nutrition Notes Need for Assessment generated from: Low BMI Initial or Follow up Assessment Current Diagnosis Diabetes,Hypertension Other Pertinent Diagnosis Anemia, GI bleed. Hx: Renal insuficiency, DVT, GERD, Sarcopenia & COVID-19. Current Diet NPO (since 10/07 01:36). Labs/Tests : Na 133, CO2 20, BUN 60 , Crea 1.7. Pertinent Medications 10/07: Nutritionally unremarkable. Height 5 ft 7 in Weight 49.895 kg [place] Body Weight (kg) 67.27 BMI 17.2 Weight change and time frame None reported at admission. Weight Status Underweight Subjective/Other Information RD consult for Low BMI assessment. Pt currently on NPO, due to GI bleeding. [facility] Pt's Low BMI seems to correspond to a natural body composition, and not related to a sudden loss of body weight nor chronic malnutrition, since none were mentioned in the Physical Assessment History or the Progress notes. Percent of energy/protein needs met: Pt currently on NPO. Burn Absent Trauma Absent GI Symptoms Other Food Allergy No Is patient on ventilator? No Is Patient Ambulatory and/or Out of Bed Yes REE-([facility]-ambulatory/OOB) [ [id number] [id number]] Calculation Used for Recommendations [facility] Additional Notes Protein: 1-1.2 g/Kg; 50-60 g/ day. Fluids: 1 ml/Kcal, or as per MD. Nutrition Intervention Follow-Up By: 10/09/21 Additional Comments When pertinent, monitor food tolerance, %PO intake of meals , and BM.
[2021-10-09] MEDS: INSULIN LISPRO 100 UNIT/ML SUB-Q SCH ×5 (00:10→22:09)
[2021-10-09 00:14] LABS: Hematocrit 30.4 % (35.5-45.6); Hemoglobin 9.7 gm/dl (11.8-15.2)
[2021-10-09] MEDS: PANTOPRAZOLE 40 MG INJ IV SCH ×2 (10:07→22:05)
[2021-10-09] MEDS: SODIUM CHLORIDE 0.9% 1000 ML 1,000 ML IV SCH ×2 (10:11→18:21)
--- NOTE | 2021-10-09 11:31 | Progress Note ---
Assessment and Plan - Patient Problems (1) Acute kidney injury Current Visit: Yes Status: Acute Plan to address problem: LETY most likely secondary to pre-renal azotemia with out of proportion elevation of BUN compared to Cr, in the setting of anemia/GI bleed. Check urine lytes, urine Protein/Cr ratio. Hb improved to > 9 s/p 2PRBC transfusion. cont IV NS at 75ml/hr. Strict I/Os, supportive care for LETY avoid nephrotoxins, NSIADs, IV contrast. Renal US showed increased echogenicity bilaterally with evidence of atrophic R kidney, consistent with underlying CKD. Will monitor I/Os, lytes, renal parameters closely and make further recommendations. (2) Anemia Current Visit: Yes Status: Acute Plan to address problem: rule out acute hemorrhagic anemia vs anemia of chronic illness. S/p 2PRBC transfusion (3) GI bleed Current Visit: Yes Status: Acute Plan to address problem: follow GI recommendations Subjective Date of service: 10/09/21 Principal diagnosis: LETY Interval history: Patient awake, alert, denies fever, chills, n/v/d, melena, bloody vomiting Objective - General Appearance General appearance: well-developed, appears stated age EENT: ATNC, PERRL, mucous membranes moist Neck: no JVD Respiratory: Present: Clear to Ascultation Cardiology: regular Gastrointestinal: normoactive bowel sounds Integumentary: no rash Neurologic: no focal deficit - Lab 10/08/21 23:57 10/08/21 04:17 Most recent lab results Calcium 8.6 mg/dL (8.4-10.2) 10/08/21 04:17 Urine Creatinine 29.0 mg/dL (0.1-20.0) H 10/08/21 01:37 Urine Sodium 64 mmol/L 10/08/21 01:37 Urine Total Protein 42 mg/dL (5-11.8) H 10/08/21 01:37 Medications & Allergies - Medications Allergies/Adverse Reactions: Allergies No Known Allergies Allergy (Verified 10/06/21 22:36) Home Medications: Home Medications Medication Instructions Recorded Confirmed Last Taken Type Acetaminophen [Tylenol] 650 mg PO Q8HR PRN 10/08/21 10/08/21 Unknown History Amlodipine Besylate [Norvasc] 5 mg PO DAILY 10/08/21 10/08/21 Unknown History Apixaban [Eliquis] 2.5 mg PO BID 10/08/21 10/08/21 Unknown History Ascorbic Acid [Vitamin C with Cassandra 500 mg PO BID 10/08/21 10/08/21 Unknown H istory Hips] Aspirin BABY CHEW TAB 81 mg PO DAILY 10/08/21 10/08/21 Unknown History AtorvaSTATin [Lipitor] 10 mg PO QHS 10/08/21 10/08/21 Unknown History Cyanocobalamin (Vitamin B-12) 1,000 mcg PO DAILY 10/08/21 10/08/21 Unknown History [Vitamin B-12] Cymbalta 60 mg PO DAILY 10/08/21 10/08/21 Unknown History Divalproex Sodium [Depakote 125 mg PO TID 10/08/21 10/08/21 Unknown History Sprinkle] Docusate Sodium [Colace] 100 mg PO BID PRN 10/08/21 10/08/21 Unknown History Folic Acid [Folvite] 1 mg PO QDAY 10/08/21 10/08/21 Unknown History Gabapentin 100 mg PO TID 10/08/21 10/08/21 Unknown History Lactobacillus Combination No.4 1 cap PO BID 10/08/21 10/08/21 Unknown History [Probiotic] Mirtazapine [Remeron] 15 mg PO HS 10/08/21 10/08/21 Unknown History Omeprazole 20 mg PO DAILY 10/08/21 10/08/21 Unknown History Patiromer Calcium Sorbitex 16.8 gram PO DAILY 10/08/21 10/08/21 Unknown History [Veltassa] QUEtiapine [SEROquel] 0.5 tab PO BID 10/08/21 10/08/21 Unknown History Ramelteon [Rozerem] 8 mg PO QHS 10/08/21 10/08/21 Unknown History Sennosides [Senna] 2 cap PO HS 10/08/21 10/08/21 Unknown History carvediloL 6.25 mg PO BID 10/08/21 10/08/21 Unknown History levoFLOXacin [Levaquin] 250 mg PO QDAY 10/08/21 10/08/21 Unknown History Active Medications: Generic Name Dose Route Start Last Admin Trade Name Freq PRN Reason Stop Dose Admin Acetaminophen 650 mg 10/07/21 01:34 Acetaminophen 325 Mg Tab PO Q4H PRN Pain MILD(1-3)/Fever >100.5/SWENSON Bisacodyl 10 mg 10/08/21 13:00 10/08/21 14:01 Bisacodyl 5 Mg Tab PO 10 mg QDAY EDUARDA Administration Dextrose 0 ml 10/07/21 11:29 10/08/21 06:20 Dextrose 10% *Hypoglycemia IV 50 ml PRN PRN Administration Hypoglycemia Sodium Chloride 1,000 mls @ 75 mls/hr 10/07/21 01:45 10/09/21 10:11 Nacl 0.9% 1000 Ml IV 75 mls/hr DIRECT EDUARDA Administration Insulin Human Lispro 0 unit 10/07/21 07:30 10/09/21 07:30 Insulin Lispro 100 Unit/Ml SUB-Q Not Given ACHS EDUARDA Protocol Magnesium Hydroxide 30 ml 10/07/21 01:34 Magnesium Hydroxide (Mom) Oral Liqd Udc PO Q4H PRN Constipation Morphine Sulfate 2 mg 10/07/21 01:34 Morphine 2 Mg/1 Ml Inj IV Q4H PRN Pain, Moderate (4-6) Morphine Sulfate 4 mg 10/07/21 01:34 Morphine 4 Mg/1 Ml Inj IV Q4H PRN Pain , Severe (7-10) Ondansetron HCl 4 mg 10/07/21 01:34 Ondansetron 4 Mg/2 Ml Inj IV Q8H PRN Nausea And Vomiting Pantoprazole Sodium 40 mg 10/07/21 10:00 10/09/21 10:07 Pantoprazole 40 Mg Inj IV 40 mg BID EDUARDA Administration Polyethylene Glycol 17 gm 10/08/21 13:00 10/08/21 22:00 Polyethylene Glycol 3350 17 Gm Powder PO 17 gm BID EDUARDA Administration Sodium Chloride 10 ml 10/07/21 10:00 10/09/21 10:09 Sodium Chloride 0.9% 10 Ml Flush Syringe IV 10 ml BID EDUARDA Administration Sodium Chloride 10 ml 10/07/21 15:18 Sodium Chloride 0.9% 50 Ml Ivpb IV PRN PRN FLUSH
[2021-10-09] MEDS: POLYETHYLENE GLYCOL 3350 17 GM POWDER PO SCH ×2 (11:49→22:09)
[2021-10-09 12:17] LABS: Calcium 9.1 mg/dL (8.4-10.2)
[2021-10-09] MEDS ORDERED: HALOPERIDOL LACTATE 5 MG/1 ML INJ IM PRN (14:43)
--- NOTE | 2021-10-09 14:44 | Gastroenterology Progress Note ---
Assessment and Plan # Anemia - unknown baseline Hgb. - Hgb at 6 on admission and trended up to 8 after transfusion. - No overt GI bleeding. - Rectal exam with brown stools. - iron studies with low iron. Rec - monitor H/H. - clear liquids today. - hold anticoagulation. - monitor for signs of bleeding. - EGD/colonoscopy rescheduled for tomorrow as not finished prep. - golytely and NPO MN. Subjective Date of service: 10/09/21 Principal diagnosis: LETY Interval history: Patient drank 3/4 of the golytely prep but still having solid brown stools. No bleeding. No abdominal pain. Objective - Constitutional Vitals: Temp Pulse Resp BP Pulse Ox 97.8 F 77 16 148/102 98 10/08/21 22:36 10/08/21 22:36 10/08/21 22:36 10/08/21 22:36 10/08/21 22:36 General appearance: no acute distress - EENT Eyes: EOM intact ENT: hearing intact - Neck Neck: supple - Respiratory Respiratory effort: normal - Extremities Extremities: No edema - Gastrointestinal General gastrointestinal: Present: soft, non-tender, non-distended - Integumentary Integumentary: Present: clear, warm - Musculoskeletal Musculoskeletal: normal - Neurologic Neurological: disoriented - Psychiatric Psychiatric: cooperative - Labs CBC & Chem 7: 10/08/21 23:57 10/09/21 11:17 Labs: Laboratory Results - last 24 hr 10/08/21 10/08/21 10/08/21 01:37 15:23 16:28 Hgb 9.4 L Hct 27.4 L Sodium Potassium Chloride Carbon Dioxide Anion Gap BUN Creatinine Estimated GFR BUN/Creatinine Ratio Glucose POC Glucose 72 Calcium Urine Creatinine 29.0 H Urine Sodium 64 Urine Total Protein 42 H 10/08/21 10/08/21 10/09/21 22:37 23:57 08:09 Hgb 9.7 L Hct 30.4 L Sodium Potassium Chloride Carbon Dioxide Anion Gap BUN Creatinine Estimated GFR BUN/Creatinine Ratio Glucose POC Glucose 78 72 Calcium Urine Creatinine Urine Sodium Urine Total Protein 10/09/21 10/09/21 11:17 11:23 Hgb Hct Sodium 134 L Potassium 5.0 Chloride 99.7 Carbon Dioxide 21 L Anion Gap 18 BUN 41 H Creatinine 1.6 H Estimated GFR 51 BUN/Creatinine Ratio 26 Glucose 69 L POC Glucose 59 L Calcium 9.1 Urine Creatinine Urine Sodium Urine Total Protein
[2021-10-09] MEDS ORDERED: POLYETHYLENE GLYCOL/ELECT SOLN 4000 ML PO NR (15:00)
[2021-10-09] MEDS ORDERED: POLYETHYLENE GLYCOL/ELECT SOLN 4000 ML PO ONE (15:00)
[2021-10-09] MEDS: DEXTROSE 10% *Hypoglycemia IV PRN ×2 (17:06→22:05)
--- NOTE | 2021-10-09 20:15 | Progress Note ---
Assessment and Plan Assessment and plan: GI endoscopy is rescheduled for tomorrow Patient will be placed n.p.o. status from midnight GI recommendations noted and appreciated --Anemia Current Visit: Yes Status: Acute Hb 6.7 on admission, received 2 units PRBC transfusion Improved to 9.4, no external evidence of bleeding GI evaluation noted and appreciated Iron profile, low iron levels --History of GI bleed Current Visit: Yes Status: Acute No new episodes of bleeding GI evaluation noted possible endoscopy tomorrow IV Protonix, n.p.o. from midnight --Acute kidney injury Current Visit: Yes Status: Acute Possibly secondary to the GI bleed. Vasomotor nephropathy , closely monitor renal function Avoid nephrotoxins --Severe protein calorie malnutrition; Current Visit: Yes Status: Acute Hypoalbuminemia, nutrition supplements, nutrition consult, Closely monitor --DVT prophylaxis Current Visit: Yes Status: Acute Patient placed on sequential compression device. --Full code status Current Visit: Yes Status: Acute Patient is full code. We will closely monitor the patient and adjust management as needed Plan of care reviewed with the patient and his nurse 10/09/2021; GI rescheduled endoscopy for tomorrow Clear liquids today and n.p.o. from midnight History Interval history: I have seen and examined the patient at the bedside Patient's chart and medications reviewed Patient is on clear liquids Endoscopy rescheduled for tomorrow Hospitalist Physical - Constitutional Vitals: Temp Pulse Resp BP Pulse Ox 97.8 F 77 16 148/102 97 10/08/21 22:36 10/08/21 22:36 10/08/21 22:36 10/08/21 22:36 10/09/21 15:00 General appearance: Present: mild distress, cachectic, disheveled, other (Moderate Pallor) - EENT Eyes: Present: PERRL, EOM intact - Neck Neck: Present: supple, normal ROM - Respiratory Respiratory effort: normal Respiratory: bilateral: diminished, negative: rales, rhonchi, wheezing - Cardiovascular Rhythm: regular Heart Sounds: Present: S1 & S2 - Extremities Extremities: no ischemia, No edema - Abdominal General gastrointestinal: soft, non-tender, non-distended, normal bowel sounds - Integumentary Integumentary: Present: clear, warm - Psychiatric Psychiatric: appropriate mood/affect, cooperative - Neurologic Neurologic: moves all extremities Results - Labs CBC & Chem 7: 10/08/21 23:57 10/09/21 11:17 Labs: Laboratory Last Values WBC 4.8 K/mm3 (4.5-11.0) 10/08/21 04:17 RBC 3.12 M/mm3 (3.65-5.03) L 10/08/21 04:17 Hgb 9.7 gm/dl (11.8-15.2) L 10/08/21 23:57 Hct 30.4 % (35.5-45.6) L 10/08/21 23:57 MCV 85 fl (84-94) 10/08/21 04:17 MCH 28 pg (28-32) 10/08/21 04:17 MCHC 33 % (32-34) 10/08/21 04:17 RDW 18.1 % (13.2-15.2) H 10/08/21 04:17 Plt Count 226 K/mm3 (140-440) 10/08/21 04:17 Lymph % (Auto) 18.1 % (13.4-35.0) 10/08/21 04:17 [place] % (Auto) 10.3 % (0.0-7.3) H 10/08/21 04:17 Eos % (Auto) 1.2 % (0.0-4.3) 10/08/21 04:17 Baso % (Auto) 0.4 % (0.0-1.8) 10/08/21 04:17 Lymph # (Auto) 0.9 K/mm3 (1.2-5.4) L 10/08/21 04:17 [place] # (Auto) 0.5 K/mm3 (0.0-0.8) 10/08/21 04:17 Eos # (Auto) 0.1 K/mm3 (0.0-0.4) 10/08/21 04:17 Baso # (Auto) 0.0 K/mm3 (0.0-0.1) 10/08/21 04:17 Seg Neutrophils % 70.0 % (40.0-70.0) 10/08/21 04:17 Seg Neutrophils # 3.4 K/mm3 (1.8-7.7) 10/08/21 04:17 PT 17.6 Sec. (12.2-14.9) H 10/06/21 23:13 INR 1.31 (0.87-1.13) H 10/06/21 23:13 APTT 50.9 Sec. (24.2-36.6) H 10/06/21 23:13 Sodium 134 mmol/L (137-145) L 10/09/21 11:17 Potassium 5.0 mmol/L (3.6-5.0) 10/09/21 11:17 Chloride 99.7 mmol/L (98-107) 10/09/21 11:17 Carbon Dioxide 21 mmol/L (22-30) L 10/09/21 11:17 Anion Gap 18 mmol/L 10/09/21 11:17 BUN 41 mg/dL (9-20) H 10/09/21 11:17 Creatinine 1.6 mg/dL (0.8-1.3) H 10/09/21 11:17 Estimated GFR 51 ml/min 10/09/21 11:17 BUN/Creatinine Ratio 26 % 10/09/21 11:17 Glucose 69 mg/dL (75-100) L 10/09/21 11:17 POC Glucose 67 mg/dL (70-105) L 10/09/21 16:49 Calcium 9.1 mg/dL (8.4-10.2) 10/09/21 11:17 Iron 30 ug/dL (49-181) L 10/07/21 16:30 TIBC 107 mcg/dL (250-450) L 10/07/21 16:30 Ferritin 1781.0 ng/mL (30.0-300.0) H 10/07/21 16:30 Total Bilirubin 0.20 mg/dL (0.1-1.2) 10/06/21 23:13 AST 17 units/L (5-40) 10/06/21 23:13 ALT 16 units/L (7-56) 10/06/21 23:13 Alkaline Phosphatase 101 units/L (35-129) 10/06/21 23:13 Total Protein 7.3 g/dL (6.3-8.2) 10/06/21 23:13 Albumin 2.8 g/dL (3.9-5) L 10/06/21 23:13 Albumin/Globulin Ratio 0.6 % 10/06/21 23:13 Urine Creatinine 29.0 mg/dL (0.1-20.0) H 10/08/21 01:37 Urine Sodium 64 mmol/L 10/08/21 01:37 Urine Total Protein 42 mg/dL (5-11.8) H 10/08/21 01:37 Coronavirus (PCR) Negative (Negative) 10/09/21 08:00 Blood Type AB POSITIVE 10/06/21 23:13 Antibody Screen Negative 10/06/21 23:13 Crossmatch See Detail 10/06/21 23:13 Still/IV: Voiding Method Suprapubic catheter Active Medications - Current Medications Current Medications: Generic Name Dose Route Start Last Admin Trade Name Freq PRN Reason Stop Dose Admin Acetaminophen 650 mg 10/07/21 01:34 Acetaminophen 325 Mg Tab PO Q4H PRN Pain MILD(1-3)/Fever >100.5/SWENSON Bisacodyl 10 mg 10/08/21 13:00 10/09/21 11:48 Bisacodyl 5 Mg Tab PO 10 mg QDAY EDUARDA Administration Dextrose 0 ml 10/07/21 11:29 10/09/21 17:06 Dextrose 10% *Hypoglycemia IV 75 ml PRN PRN Administration Hypoglycemia Haloperidol Lactate 2 mg 10/09/21 14:43 10/09/21 14:49 Haloperidol Lactate 5 Mg/1 Ml Inj IM 2 mg Q6H PRN Administration Agitation Sodium Chloride 1,000 mls @ 75 mls/hr 10/07/21 01:45 10/09/21 18:21 Nacl 0.9% 1000 Ml IV 75 mls/hr DIRECT EDUARDA Administration Insulin Human Lispro 0 unit 10/07/21 07:30 10/09/21 16:30 Insulin Lispro 100 Unit/Ml SUB-Q Not Given ACHS [facility] Protocol Magnesium Hydroxide 30 ml 10/07/21 01:34 Magnesium Hydroxide (Mom) Oral Liqd Udc PO Q4H PRN Constipation Morphine Sulfate 2 mg 10/07/21 01:34 Morphine 2 Mg/1 Ml Inj IV Q4H PRN Pain, Moderate (4-6) Morphine Sulfate 4 mg 10/07/21 01:34 Morphine 4 Mg/1 Ml Inj IV Q4H PRN Pain , Severe (7-10) Ondansetron HCl 4 mg 10/07/21 01:34 Ondansetron 4 Mg/2 Ml Inj IV Q8H PRN Nausea And Vomiting Pantoprazole Sodium 40 mg 10/07/21 10:00 10/09/21 10:07 Pantoprazole 40 Mg Inj IV 40 mg BID EDUARDA Administration Polyethylene Glycol 17 gm 10/08/21 13:00 10/09/21 11:49 Polyethylene Glycol 3350 17 Gm Powder PO 17 gm BID EDUARDA Administration Polyethylene Glycol/Electrolytes 4,000 ml 10/09/21 15:00 10/09/21 17:02 Polyethylene Glycol/Elect Soln 4000 Ml PO 10/09/21 23:00 4,000 ml ONCE@1500 NR Administration Sodium Chloride 10 ml 10/07/21 10:00 10/09/21 10:09 Sodium Chloride 0.9% 10 Ml Flush Syringe IV 10 ml BID EDUARDA Administration Sodium Chloride 10 ml 10/07/21 15:18 Sodium Chloride 0.9% 50 Ml Ivpb IV PRN PRN FLUSH Nutrition/Malnutrition Assess - Dietary Evaluation Nutrition/Malnutrition Findings: Nutrition Notes Start: 10/07/21 10:51 Freq: Status: Active Protocol: Document 10/09/21 11:08 JOE (Rec: 10/09/21 11:58 JOE [id number]) Nutrition Notes Initial or Follow up Reassessment Current Diagnosis Decubitus(Pressure Ulcer), Diabetes,Hypertension Other Pertinent Diagnosis LETY, Anemia, GI bleed. Hx: DVT , GERD, Sarcopenia & COVID-19. Current Diet Clear Liquids Diet (since D ), Dietary Supplements ( since D 10/09). Labs/Tests 10/08: CO2 21, BUN 52, Crea 1. 7, Glu 73. Pertinent Medications 10/09: Nutritionally unremarkable. Height 5 ft 7 in Weight 66.5 kg [place] Body Weight (kg) 67.27 BMI 22.9 Weight change and time frame 16.6 Kg discrepancy body weight gain in 2 days reported . New body weight places Pt in Appropiate instead of Low BMI. Weight Status Appropriate Subjective/Other Information RD consult for difficulty chewing and dietary supplementation assessments. Before NPO (10/08 00:01 for colonoscopy) Pt's PO intake of meals was Fair (50%), according to ADL notes. Correction on body weight change pt's cathegory from underweight to appropiate. Pt will start PO with ONS and will prescribe Raji for wound healing support. Percent of energy/protein needs met: Prescribed Clear Liquids Diet provides for energy/protein needs (590 Kcal/16 g) during LOS; additionally, Dietary Supplements will compensate for possible poor or insufficient PO intake of meals, and will support wound healing processes with 640 Kcal and 95 g of protein. Burn Absent Trauma Absent GI Symptoms Other Food Allergy No Skin Integrity/Comment Decubitus sacral pressure ulcer. Current % PO Fair (50-74%) Minimum of two criteria No #1 Nutrition Diagnosis Predicted suboptimal energy intake,Increased nutrient needs (specify in comment below) Comments: Protein to support wound healing processes. Etiology Sacral decubitus and ongoing and concomitant chronic metabolic conditions. As Evidenced by Signs and Symptoms Poor PO intake of meals, and pressure ulcer open wound Is patient on ventilator? No Is Patient Ambulatory and/or Out of Bed Yes REE-([place]-[facility]. Jeor-ambulatory/OOB) [ 1766.219 [id number]] [facility] Additional Notes Protein: 1.25-1.5 g/Kg; 84-101 g/day. Fluids: 1 ml/Kcal, or as per MD. Nutrition Intervention Change Diet Order: Continue Clear Liquids Diet. Add Supplement/Snack (indicate name/kcal 8 fl oz Ensure Max Protein; /protein ) TID. 28.8 g pkt Raji; BID. Provides kCal: 640 Provides Protein (gm) 95 Goal #1 Support, through dietary supplementation, wound healing processes during LOS. Goal #2 Compensate, through dietary supplementation, for possible poor or insufficient PO intake of meals during LOS. Follow-Up By: 10/11/21 Additional Comments When pertinent, monitor food tolerance, %PO intake of meals , and BM.
[2021-10-10] MEDS: DEXTROSE 10% *Hypoglycemia IV PRN ×4 (06:27→22:13)
[2021-10-10] MEDS: INSULIN LISPRO 100 UNIT/ML SUB-Q SCH ×5 (07:30→22:00)
[2021-10-10] MEDS ORDERED: propofoL 200 MG/20 ML VIAL IV ONE ×2 (08:47→09:49)
--- NOTE | 2021-10-10 09:06 | Anesthesia Consultation ---
Anesthesia Consult and Med Hx Date of service: 10/10/21 - Airway Anesthetic Teeth Evaluation: Edentulous ROM Head & Neck: Adequate Mental/Hyoid Distance: Adequate Mallampati Class: Class II Intubation Access Assessment: Probably Good - Pre-Operative Health Status ASA Pre-Surgery Classification: ASA3 Proposed Anesthetic Plan: MAC - Pulmonary Hx Smoking: Yes Hx Respiratory Symptoms: Yes (had COVID-19 infection with respiratory failure ) Hx Pneumonia: Yes - Cardiovascular System Hx Hypertension: Yes - Central Nervous System Hx Seizures: Yes Hx Psychiatric Problems: No - Gastrointestinal Hx Ulcer: Yes (GI bleed) - Endocrine Hx Renal Disease: Yes (Chronic kidney disease stage IV) Hx End Stage Renal Disease: No (suprapubic catheter) Hx Non-Insulin Dependent Diabetes: Yes - Hematic Hx Anemia: Yes - Other Systems Hx Cancer: No
--- NOTE | 2021-10-10 09:07 | Anesthesia Day of Surgery ---
Anesthesia Day of Surgery - Day of Surgery Patient Examined: Yes Patient H&P Reviewed: Yes Patient is NPO: Yes
--- NOTE | 2021-10-10 09:44 | Progress Note ---
Assessment and Plan Assessment and plan: GI endoscopy colonoscopy and EGD scheduled for this morning Patient n.p.o. status --Anemia Current Visit: Yes Status: Acute Hb 6.7 on admission, received 2 units PRBC transfusion Improved to 9.4, no external evidence of bleeding GI evaluation noted and appreciated Iron profile, low iron levels --History of GI bleed Current Visit: Yes Status: Acute No new episodes of bleeding Follow EGD and colonoscopy findings and recommendations IV Protonix, n.p.o. from midnight --Acute kidney injury Current Visit: Yes Status: Acute Possibly secondary to the GI bleed. Vasomotor nephropathy , closely monitor renal function Avoid nephrotoxins --Severe protein calorie malnutrition; Current Visit: Yes Status: Acute Hypoalbuminemia, nutrition supplements, nutrition consult, Closely monitor --DVT prophylaxis Current Visit: Yes Status: Acute Patient placed on sequential compression device. --Full code status Current Visit: Yes Status: Acute Patient is full code. We will closely monitor the patient and adjust management as needed Plan of care reviewed with the patient and his nurse 10/09/2021; GI rescheduled endoscopy for tomorrow Clear liquids today and n.p.o. from midnight 10/10/2021; patient is having colonoscopy and EGD today Follow-up procedures follow findings and recommendations per GI, History Interval history: Seen and examined the patient at the bedside Patient's chart and medications reviewed Scheduled for EGD and colonoscopy today no new episodes of bleeding Patient n.p.o. status Hospitalist Physical - Constitutional Vitals: Temp Pulse Resp BP Pulse Ox 97.7 F 91 H 14 131/81 97 10/10/21 08:40 10/10/21 08:40 10/10/21 08:40 10/10/21 08:40 10/10/21 08:40 General appearance: Present: mild distress, cachectic, disheveled, other (Moderate Pallor) - EENT Eyes: Present: PERRL, EOM intact - Neck Neck: Present: supple, normal ROM - Respiratory Respiratory effort: normal Respiratory: bilateral: diminished, negative: rales, rhonchi, wheezing - Cardiovascular Rhythm: regular Heart Sounds: Present: S1 & S2 - Extremities Extremities: no ischemia, No edema - Abdominal General gastrointestinal: soft, non-tender, non-distended, normal bowel sounds - Integumentary Integumentary: Present: clear, warm - Psychiatric Psychiatric: appropriate mood/affect, cooperative - Neurologic Neurologic: moves all extremities Results - Labs CBC & Chem 7: 10/10/21 11:21 10/09/21 11:17 Labs: Laboratory Last Values WBC 4.8 K/mm3 (4.5-11.0) 10/08/21 04:17 RBC 3.12 M/mm3 (3.65-5.03) L 10/08/21 04:17 Hgb 9.7 gm/dl (11.8-15.2) L 10/08/21 23:57 Hct 30.4 % (35.5-45.6) L 10/08/21 23:57 MCV 85 fl (84-94) 10/08/21 04:17 MCH 28 pg (28-32) 10/08/21 04:17 MCHC 33 % (32-34) 10/08/21 04:17 RDW 18.1 % (13.2-15.2) H 10/08/21 04:17 Plt Count 226 K/mm3 (140-440) 10/08/21 04:17 Lymph % (Auto) 18.1 % (13.4-35.0) 10/08/21 04:17 [place] % (Auto) 10.3 % (0.0-7.3) H 10/08/21 04:17 Eos % (Auto) 1.2 % (0.0-4.3) 10/08/21 04:17 Baso % (Auto) 0.4 % (0.0-1.8) 10/08/21 04:17 Lymph # (Auto) 0.9 K/mm3 (1.2-5.4) L 10/08/21 04:17 [place] # (Auto) 0.5 K/mm3 (0.0-0.8) 10/08/21 04:17 Eos # (Auto) 0.1 K/mm3 (0.0-0.4) 10/08/21 04:17 Baso # (Auto) 0.0 K/mm3 (0.0-0.1) 10/08/21 04:17 Seg Neutrophils % 70.0 % (40.0-70.0) 10/08/21 04:17 Seg Neutrophils # 3.4 K/mm3 (1.8-7.7) 10/08/21 04:17 PT 17.6 Sec. (12.2-14.9) H 10/06/21 23:13 INR 1.31 (0.87-1.13) H 10/06/21 23:13 APTT 50.9 Sec. (24.2-36.6) H 10/06/21 23:13 Sodium 134 mmol/L (137-145) L 10/09/21 11:17 Potassium 5.0 mmol/L (3.6-5.0) 10/09/21 11:17 Chloride 99.7 mmol/L (98-107) 10/09/21 11:17 Carbon Dioxide 21 mmol/L (22-30) L 10/09/21 11:17 Anion Gap 18 mmol/L 10/09/21 11:17 BUN 41 mg/dL (9-20) H 10/09/21 11:17 Creatinine 1.6 mg/dL (0.8-1.3) H 10/09/21 11:17 Estimated GFR 51 ml/min 10/09/21 11:17 BUN/Creatinine Ratio 26 % 10/09/21 11:17 Glucose 69 mg/dL (75-100) L 10/09/21 11:17 POC Glucose 77 mg/dL (70-105) 10/10/21 07:30 Calcium 9.1 mg/dL (8.4-10.2) 10/09/21 11:17 Iron 30 ug/dL (49-181) L 10/07/21 16:30 TIBC 107 mcg/dL (250-450) L 10/07/21 16:30 Ferritin 1781.0 ng/mL (30.0-300.0) H 10/07/21 16:30 Total Bilirubin 0.20 mg/dL (0.1-1.2) 10/06/21 23:13 AST 17 units/L (5-40) 10/06/21 23:13 ALT 16 units/L (7-56) 10/06/21 23:13 Alkaline Phosphatase 101 units/L (35-129) 10/06/21 23:13 Total Protein 7.3 g/dL (6.3-8.2) 10/06/21 23:13 Albumin 2.8 g/dL (3.9-5) L 10/06/21 23:13 Albumin/Globulin Ratio 0.6 % 10/06/21 23:13 Urine Creatinine 29.0 mg/dL (0.1-20.0) H 10/08/21 01:37 Urine Sodium 64 mmol/L 10/08/21 01:37 Urine Total Protein 42 mg/dL (5-11.8) H 10/08/21 01:37 Coronavirus (PCR) Negative (Negative) 10/09/21 08:00 Blood Type AB POSITIVE 10/06/21 23:13 Antibody Screen Negative 10/06/21 23:13 Crossmatch See Detail 10/06/21 23:13 Still/IV: Voiding Method Suprapubic catheter Active Medications - Current Medications Current Medications: Generic Name Dose Route Start Last Admin Trade Name Freq PRN Reason Stop Dose Admin Acetaminophen 650 mg 10/07/21 01:34 Acetaminophen 325 Mg Tab PO Q4H PRN Pain MILD(1-3)/Fever >100.5/SWENSON Bisacodyl 10 mg 10/08/21 13:00 10/09/21 11:48 Bisacodyl 5 Mg Tab PO 10 mg QDAY EDUARDA Administration Dextrose 0 ml 10/07/21 11:29 10/10/21 06:27 Dextrose 10% *Hypoglycemia IV 100 ml PRN PRN Administration Hypoglycemia Haloperidol Lactate 2 mg 10/09/21 14:43 10/09/21 14:49 Haloperidol Lactate 5 Mg/1 Ml Inj IM 2 mg Q6H PRN Administration Agitation Sodium Chloride 1,000 mls @ 75 mls/hr 10/07/21 01:45 10/09/21 18:21 Nacl 0.9% 1000 Ml IV 75 mls/hr DIRECT EDUARDA Administration Insulin Human Lispro 0 unit 10/07/21 07:30 10/09/21 22:09 Insulin Lispro 100 Unit/Ml SUB-Q Not Given ACHS [facility] Protocol Magnesium Hydroxide 30 ml 10/07/21 01:34 Magnesium Hydroxide (Mom) Oral Liqd Udc PO Q4H PRN Constipation Morphine Sulfate 2 mg 10/07/21 01:34 Morphine 2 Mg/1 Ml Inj IV Q4H PRN Pain, Moderate (4-6) Morphine Sulfate 4 mg 10/07/21 01:34 Morphine 4 Mg/1 Ml Inj IV Q4H PRN Pain , Severe (7-10) Ondansetron HCl 4 mg 10/07/21 01:34 Ondansetron 4 Mg/2 Ml Inj IV Q8H PRN Nausea And Vomiting Pantoprazole Sodium 40 mg 10/07/21 10:00 10/09/21 22:05 Pantoprazole 40 Mg Inj IV 40 mg BID EDUARDA Administration Polyethylene Glycol 17 gm 10/08/21 13:00 10/09/21 22:09 Polyethylene Glycol 3350 17 Gm Powder PO 17 gm BID EDUARDA Administration Sodium Chloride 10 ml 10/07/21 10:00 10/09/21 22:09 Sodium Chloride 0.9% 10 Ml Flush Syringe IV 10 ml BID EDUARDA Administration Sodium Chloride 10 ml 10/07/21 15:18 Sodium Chloride 0.9% 50 Ml Ivpb IV PRN PRN FLUSH Nutrition/Malnutrition Assess - Dietary Evaluation Nutrition/Malnutrition Findings: Nutrition Notes Start: 10/07/21 10:51 Freq: Status: Active Protocol: Document 10/09/21 11:08 JOE (Rec: 10/09/21 11:58 JOE [id number]) Nutrition Notes Initial or Follow up Reassessment Current Diagnosis Decubitus(Pressure Ulcer), Diabetes,Hypertension Other Pertinent Diagnosis LETY, Anemia, GI bleed. Hx: DVT , GERD, Sarcopenia & COVID-19. Current Diet Clear Liquids Diet (since D ), Dietary Supplements ( since D 10/09). Labs/Tests 10/08: CO2 21, BUN 52, Crea 1. 7, Glu 73. Pertinent Medications 10/09: Nutritionally unremarkable. Height 5 ft 7 in Weight 66.5 kg [place] Body Weight (kg) 67.27 BMI 22.9 Weight change and time frame 16.6 Kg discrepancy body weight gain in 2 days reported . New body weight places Pt in Appropiate instead of Low BMI. Weight Status Appropriate Subjective/Other Information RD consult for difficulty chewing and dietary supplementation assessments. Before NPO (10/08 00:01 for colonoscopy) Pt's PO intake of meals was Fair (50%), according to ADL notes. Correction on body weight change pt's cathegory from underweight to appropiate. Pt will start PO with ONS and will prescribe Raji for wound healing support. Percent of energy/protein needs met: Prescribed Clear Liquids Diet provides for energy/protein needs (590 Kcal/16 g) during LOS; additionally, Dietary Supplements will compensate for possible poor or insufficient PO intake of meals, and will support wound healing processes with 640 Kcal and 95 g of protein. Burn Absent Trauma Absent GI Symptoms Other Food Allergy No Skin Integrity/Comment Decubitus sacral pressure ulcer. Current % PO Fair (50-74%) Minimum of two criteria No #1 Nutrition Diagnosis Predicted suboptimal energy intake,Increased nutrient needs (specify in comment below) Comments: Protein to support wound healing processes. Etiology Sacral decubitus and ongoing and concomitant chronic metabolic conditions. As Evidenced by Signs and Symptoms Poor PO intake of meals, and pressure ulcer open wound Is patient on ventilator? No Is Patient Ambulatory and/or Out of Bed Yes REE-([facility]-ambulatory/OOB) [ 1766.219 [id number]] Calculation Used for Recommendations [facility] Additional Notes Protein: 1.25-1.5 g/Kg; 84-101 g/day. Fluids: 1 ml/Kcal, or as per MD. Nutrition Intervention Change Diet Order: Continue Clear Liquids Diet. Add Supplement/Snack (indicate name/kcal 8 fl oz Ensure Max Protein; /protein ) TID. 28.8 g pkt Raji; BID. Provides kCal: 640 Provides Protein (gm) 95 Goal #1 Support, through dietary supplementation, wound healing processes during LOS. Goal #2 Compensate, through dietary supplementation, for possible poor or insufficient PO intake of meals during LOS. Follow-Up By: 10/11/21 Additional Comments When pertinent, monitor food tolerance, %PO intake of meals , and BM.
--- NOTE | 2021-10-10 10:12 | Operative Report ---
Operative Report Operative Report: Date:10/10/21 Endoscopist: Ronny Darnell MD (Jenny) EGD REPORT PREOPERATIVE DIAGNOSIS:iron deficiency, anemia POSTOPERATIVE DIAGNOSIS:hiatal hernia ESTIMATED BLOOD LOSS:minimal DESCRIPTION OF PROCEDURE: A high-resolution EGD scope was passed through the oropharynx, esophagus, stomach, and second portion of duodenum. The scope was carefully withdrawn. Retroflexion was performed in the stomach. At the end of the procedure, the scope was cleaned using normal technique. Vital signs monitored continuously throughout. SEDATION: Provided by Anesthesiology Services. COMPLICATIONS: None. FINDINGS: 1. A small hiatal hernia. 2. Normal stomach exam. Biopsies obtained. 3. Normal duodenum exam. Biopsies obtained. RECOMMENDATIONS: 1. Proceed with colonoscopy. Ronny Darnell MD (Jenny) [facility]
--- NOTE | 2021-10-10 10:17 | Operative Report ---
Operative Report Operative Report: Colonoscopy: Procedure: Colonoscopy Endoscopist: Ronny Darnell MD Pre-operative Diagnosis/Indications:iron deficiency anemia Post-operative Diagnosis:colon polyps, hemorrhoids History:See consult note Sedation:MAC Procedure Details: Indications, risks, and benefits were explained and consent was obtained. Pt was placed in the left lateral decubitus position and sedated. Video upper endoscope was inserted thru the anus after digital exam, and advanced to the cecum withoutdifficulty. Scope was then gradually withdrawn with close inspection of the mucosa. Prep was good. Findings: 1. There was one 8 mm sessile polyp in the descending colon removed with hot snare polypectomy. Specimen retrieved. Another 6-7 mm sessile polyp in the descending colon removed with cold snare polypectomy. Specimen retrieved. 2. A 5 mm sessile polyp in the sigmoid colon removed with cold snare polypectomy. Specimen retrieved. 3. Multiple small and large diverticula in the sigmoid, descending, transverse, and ascending colon. 4. Internal and external hemorrhoids without bleeding. Specimens:colon polyps Complications:None; patient tolerated the procedure well. Disposition:Recover in the GI lab andtransfer to the floorwhen all criteria met. Impression: 1. Colon polyps removed. 2. Pandiverticulosis. 3. Internal and external hemorrhoids, nonbleeding. 4. No clear source of anemia identified except for possible prior bleeding from hemorrhoids. Recommendations: 1. Resume diet. 2. Monitor H/H. 3. Ok to resume anticoagulation tomorrow. 4. Follow up outpatient for further anemia work up if persistent. 5. Will sign off. Spoke with son on the phone and updated. Ronny Darnell MD (Jenny) [facility]
[2021-10-10 11:48] LABS: Hematocrit 27.6 % (35.5-45.6); Hemoglobin 8.9 gm/dl (11.8-15.2)
[2021-10-10] MEDS: PANTOPRAZOLE 40 MG INJ IV SCH (12:33)
--- NOTE | 2021-10-10 13:42 | Post Anesthesia Evaluation ---
- Post Anesthesia Evaluation Patient Participated: Yes Airway Patent: Yes Stable Respiratory Function: Yes Nausea/Vomiting: No Temp > 96.8F: Yes Pain Manageable: Yes Adequeate Hydration: Yes Anesthesia Complications: No Block Receding Appropriately: Not Applicable Patient on Ventilator: No
--- NOTE | 2021-10-10 16:44 | Progress Note ---
Assessment and Plan - Patient Problems (1) Acute kidney injury Current Visit: Yes Status: Acute Plan to address problem: LETY most likely secondary to pre-renal azotemia with out of proportion elevation of BUN compared to Cr, in the setting of anemia/GI bleed. Check urine lytes, urine Protein/Cr ratio. Hb improved to > 8.9 s/p 2PRBC transfusion. Cont supportive care for LETY avoid nephrotoxins, NSIADs, IV contrast. Renal US showed increased echogenicity bilaterally with evidence of atrophic R kidney, consistent with underlying CKD. Will monitor I/Os, lytes, renal parameters closely and make further recommendations. (2) Anemia Current Visit: Yes Status: Acute Plan to address problem: rule out acute hemorrhagic anemia vs anemia of chronic illness. 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 I reviewed multidisciplinary notes Objective - Exam Narrative Exam: Patient was not examined at the bedside today due to the COVID-19 status. - Vital Signs Vital signs: Vital Signs - 12hr 10/10/21 10/10/21 10/10/21 04:52 08:40 10:02 Temperature 97.7 F 97.7 F 97.7 F Pulse Rate 88 91 H 80 Respiratory 18 14 18 Rate Blood Pressure 142/83 131/81 141/85 O2 Sat by Pulse 93 97 100 Oximetry 10/10/21 10/10/21 10/10/21 10:07 10:12 10:22 Temperature Pulse Rate 81 84 85 Respiratory 17 16 16 Rate Blood Pressure 115/86 147/82 132/98 O2 Sat by Pulse 100 99 98 Oximetry 10/10/21 10/10/21 10:32 11:43 Temperature 98.0 F Pulse Rate 88 89 Respiratory 16 18 Rate Blood Pressure 135/96 147/86 O2 Sat by Pulse 99 98 Oximetry - Lab 10/10/21 11:21 10/09/21 11:17 Most recent lab results Calcium 9.1 mg/dL (8.4-10.2) 10/09/21 11:17 Urine Creatinine 29.0 mg/dL (0.1-20.0) H 10/08/21 01:37 Urine Sodium 64 mmol/L 10/08/21 01:37 Urine Total Protein 42 mg/dL (5-11.8) H 10/08/21 01:37 Medications & Allergies - Medications Allergies/Adverse Reactions: Allergies No Known Allergies Allergy (Verified 10/06/21 22:36) Home Medications: Home Medications Medication Instructions Recorded Confirmed Last Taken Type Acetaminophen [Tylenol] 650 mg PO Q8HR PRN 10/08/21 10/08/21 Unknown History Amlodipine Besylate [Norvasc] 5 mg PO DAILY 10/08/21 10/08/21 Unknown History Apixaban [Eliquis] 2.5 mg PO BID 10/08/21 10/08/21 Unknown History Ascorbic Acid [Vitamin C with Cassandra 500 mg PO BID 10/08/21 10/08/21 Unknown History Hips] Aspirin BABY CHEW TAB 81 mg PO DAILY 10/08/21 10/08/21 Unknown History AtorvaSTATin [Lipitor] 10 mg PO QHS 10/08/21 10/08/21 Unknown History Cyanocobalamin (Vitamin B-12) 1,000 mcg PO DAILY 10/08/21 10/08/21 Unknown History [Vitamin B-12] Cymbalta 60 mg PO DAILY 10/08/21 10/08/21 Unknown History Divalproex Sodium [Depakote 125 mg PO TID 10/08/21 10/08/21 Unknown History Sprinkle] Docusate Sodium [Colace] 100 mg PO BID PRN 10/08/21 10/08/21 Unknown History Folic Acid [Folvite] 1 mg PO QDAY 10/08/21 10/08/21 Unknown History Gabapentin 100 mg PO TID 10/08/21 10/08/21 Unknown History Lactobacillus Combination No.4 1 cap PO BID 10/08/21 10/08/21 Unknown History [Probiotic] Mirtazapine [Remeron] 15 mg PO HS 10/08/21 10/08/21 Unknown History Omeprazole 20 mg PO DAILY 10/08/21 10/08/21 Unknown History Patiromer Calcium Sorbitex 16.8 gram PO DAILY 10/08/21 10/08/21 Unknown History [Veltassa] QUEtiapine [SEROquel] 0.5 tab PO BID 10/08/21 10/08/21 Unknown History Ramelteon [Rozerem] 8 mg PO QHS 10/08/21 10/08/21 Unknown History Sennosides [Senna] 2 cap PO HS 10/08/21 10/08/21 Unknown History carvediloL 6.25 mg PO BID 10/08/21 10/08/21 Unknown History levoFLOXacin [Levaquin] 250 mg PO QDAY 10/08/21 10/08/21 Unknown History Active Medications: Generic Name Dose Route Start Last Admin Trade Name Freq PRN Reason Stop Dose Admin Acetaminophen 650 mg 10/07/21 01:34 Acetaminophen 325 Mg Tab PO Q4H PRN Pain MILD(1-3)/Fever >100.5/SWENSON Bisacodyl 10 mg 10/08/21 13:00 10/09/21 11:48 Bisacodyl 5 Mg Tab PO 10 mg QDAY EDUARDA Administration Dextrose 0 ml 10/07/21 11:29 10/10/21 11:28 Dextrose 10% *Hypoglycemia IV 100 ml PRN PRN Administration Hypoglycemia Haloperidol Lactate 2 mg 10/09/21 14:43 10/09/21 14:49 Haloperidol Lactate 5 Mg/1 Ml Inj IM 2 mg Q6H PRN Administration Agitation Sodium Chloride 1,000 mls @ 75 mls/hr 10/07/21 01:45 10/09/21 18:21 Nacl 0.9% 1000 Ml IV 75 mls/hr DIRECT EDUARDA Administration Insulin Human Lispro 0 unit 10/07/21 07:30 10/10/21 12:24 Insulin Lispro 100 Unit/Ml SUB-Q Not Given ACHS [facility] Protocol Magnesium Hydroxide 30 ml 10/07/21 01:34 Magnesium Hydroxide (Mom) Oral Liqd Udc PO Q4H PRN Constipation Morphine Sulfate 2 mg 10/07/21 01:34 Morphine 2 Mg/1 Ml Inj IV Q4H PRN Pain, Moderate (4-6) Morphine Sulfate 4 mg 10/07/21 01:34 Morphine 4 Mg/1 Ml Inj IV Q4H PRN Pain , Severe (7-10) Ondansetron HCl 4 mg 10/07/21 01:34 Ondansetron 4 Mg/2 Ml Inj IV Q8H PRN Nausea And Vomiting Pantoprazole Sodium 40 mg 10/10/21 16:30 Pantoprazole 40 Mg Tab PO BIDAC EDUARDA Polyethylene Glycol 17 gm 10/08/21 13:00 10/09/21 22:09 Polyethylene Glycol 3350 17 Gm Powder PO 17 gm BID EDUARDA Administration Sodium Chloride 10 ml 10/07/21 10:00 10/09/21 22:09 Sodium Chloride 0.9% 10 Ml Flush Syringe IV 10 ml BID EDUARDA Administration Sodium Chloride 10 ml 10/07/21 15:18 Sodium Chloride 0.9% 50 Ml Ivpb IV PRN PRN FLUSH
[2021-10-10] MEDS: POLYETHYLENE GLYCOL 3350 17 GM POWDER PO SCH (16:47)
[2021-10-10] MEDS: PANTOPRAZOLE 40 MG TAB PO SCH (16:48)
[2021-10-10] MEDS: SODIUM CHLORIDE 0.9% 1000 ML 1,000 ML IV SCH (16:51)
--- NOTE | 2021-10-10 19:44 | Event Note ---
Date: 10/10/21 Patient underwent colonoscopy and EGD today; EGD findings; small hiatal hernia, normal stomach exam biopsies obtained Normal duodenum exam biopsies obtained Colonoscopy; colon polyps removed, pandiverticulosis, internal and external hemorrhoids nonbleeding No clear source of anemia identified except for possible prior bleeding from hemorrhoids GI recommend okay to resume anticoagulation tomorrow Discharge home tomorrow if stable patient is hemodynamically and clinically stable at discharge
--- NOTE | 2021-10-10 23:57 | Discharge Summary ---
Providers - Providers Date of Admission: 10/08/21 17:26 Date of discharge: 10/11/21 Attending physician: SYLVIA MARIANO 10/07/21 01:02 Consult to Physician [CONS] Urgent Comment: Consulting Provider: GIRMA ROJO Physician Instructions: Reason For Exam: guaic + brown stool 10/07/21 01:40 Consult to Physician [CONS] Routine Comment: Consulting Provider: KATYA SMITH Physician Instructions: Reason For Exam: RENAL INSUFFICIENCY 10/08/21 13:40 Occupational Therapy Evaluate and Treat [CONS] Stat Comment: Reason For Exam: eval and treat Physical Therapy Evaluation and Treat [CONS] Stat Comment: Reason For Exam: eval and treat 10/08/21 17:23 Consult to Dietitian/Nutrition [CONS] Routine Physician Instructions: Reason For Exam: Reason for Consult: Pt needs oral supplement Primary care physician: CUFF SETTER Hospitalization Condition: Stable Hospital course: GI endoscopy colonoscopy and EGD scheduled for this morning Patient n.p.o. status --Anemia Current Visit: Yes Status: Acute Hb 6.7 on admission, received 2 units PRBC transfusion Improved to 9.4, no external evidence of bleeding GI evaluation noted and appreciated Iron profile, low iron levels --History of GI bleed Current Visit: Yes Status: Acute No new episodes of bleeding Follow EGD and colonoscopy findings and recommendations IV Protonix, n.p.o. from midnight --Acute kidney injury Current Visit: Yes Status: Acute Possibly secondary to the GI bleed. Vasomotor nephropathy , closely monitor renal function Avoid nephrotoxins --Severe protein calorie malnutrition; Current Visit: Yes Status: Acute Hypoalbuminemia, nutrition supplements, nutrition consult, Closely monitor --DVT prophylaxis Current Visit: Yes Status: Acute Patient placed on sequential compression device. --Full code status Current Visit: Yes Status: Acute Patient is full code. We will closely monitor the patient and adjust management as needed Plan of care reviewed with the patient and his nurse 10/09/2021; GI rescheduled endoscopy for tomorrow Clear liquids today and n.p.o. from midnight 10/10/2021; patient is having colonoscopy and EGD today Follow-up procedures follow findings and recommendations per GI, Disposition: 30 STILL A PATIENT Exam - Constitutional Vitals: Temp Pulse Resp BP Pulse Ox 98.4 F 102 H 20 166/98 99 10/10/21 22:06 10/10/21 22:06 10/10/21 22:06 10/10/21 22:06 10/10/21 22:06 Plan Follow up with: PRIMARY CARE, [Primary Care Provider] - 3-5 Days
[2021-10-11] MEDS: D5W/0.45% NACL 1,000 ML IV SCH ×2 (04:09→18:13)
[2021-10-11] MEDS: INSULIN LISPRO 100 UNIT/ML SUB-Q SCH ×5 (07:30→22:56)
[2021-10-11] MEDS: DEXTROSE 10% *Hypoglycemia IV PRN ×2 (08:21→18:13)
[2021-10-11] MEDS: POLYETHYLENE GLYCOL 3350 17 GM POWDER PO SCH ×3 (08:26→22:03)
[2021-10-11 10:54] LABS: Hematocrit 28.4 % (35.5-45.6); Hemoglobin 9.3 gm/dl (11.8-15.2)
[2021-10-11 10:58] LABS: Calcium 9.1 mg/dL (8.4-10.2)
--- NOTE | 2021-10-11 12:18 | Progress Note ---
Assessment and Plan - Patient Problems (1) Acute kidney injury Current Visit: Yes Status: Acute Plan to address problem: LETY most likely secondary to pre-renal azotemia with out of proportion elevation of BUN compared to Cr, in the setting of anemia/GI bleed. Hb improved to > 9 s/p 2PRBC transfusion. Cont supportive care for LETY avoid nephrotoxins, NSIADs, IV contrast. Will avoid maintenance IVF in the setting of COVID19 infection. Renal US showed increased echogenicity bilaterally with evidence of atrophic R kidney, consistent with underlying CKD. Will monitor I/Os, lytes, renal parameters closely and make further recommendations. (2) Anemia Current Visit: Yes Status: Acute Plan to address problem: rule out acute hemorrhagic anemia vs anemia of chronic illness. 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 I reviewed multidisciplinary notes Objective - Exam Narrative Exam: Patient was not examined at the bedside today due to the COVID-19 status. - Vital Signs Vital signs: Vital Signs - 12hr 10/11/21 10/11/21 03:00 04:49 Temperature 99.8 F H Pulse Rate 100 H Respiratory 20 Rate Blood Pressure 134/93 O2 Sat by Pulse 98 98 Oximetry - Lab 10/11/21 10:13 10/11/21 10:13 Most recent lab results Calcium 9.1 mg/dL (8.4-10.2) 10/11/21 10:13 Magnesium 1.60 mg/dL (1.7-2.3) L 10/11/21 10:13 Urine Creatinine 29.0 mg/dL (0.1-20.0) H 10/08/21 01:37 Urine Sodium 64 mmol/L 10/08/21 01:37 Urine Total Protein 42 mg/dL (5-11.8) H 10/08/21 01:37 Medications & Allergies - Medications Allergies/Adverse Reactions: Allergies No Known Allergies Allergy (Verified 10/06/21 22:36) Home Medications: Home Medications Medication Instructions Recorded Confirmed Last Taken Type Acetaminophen [Tylenol] 650 mg PO Q8HR PRN 10/08/21 10/08/21 Unknown History Amlodipine Besylate [Norvasc] 5 mg PO DAILY 10/08/21 10/08/21 Unknown History Apixaban [Eliquis] 2.5 mg PO BID 10/08/21 10/08/21 Unknown History Ascorbic Acid [Vitamin C with Cassandra 500 mg PO BID 10/08/21 10/08/21 Unknown Hi story Hips] Aspirin BABY CHEW TAB 81 mg PO DAILY 10/08/21 10/08/21 Unknown History AtorvaSTATin [Lipitor] 10 mg PO QHS 10/08/21 10/08/21 Unknown History Cyanocobalamin (Vitamin B-12) 1,000 mcg PO DAILY 10/08/21 10/08/21 Unknown History [Vitamin B-12] Cymbalta 60 mg PO DAILY 10/08/21 10/08/21 Unknown History Divalproex Sodium [Depakote 125 mg PO TID 10/08/21 10/08/21 Unknown History Sprinkle] Docusate Sodium [Colace] 100 mg PO BID PRN 10/08/21 10/08/21 Unknown History Folic Acid [Folvite] 1 mg PO QDAY 10/08/21 10/08/21 Unknown History Gabapentin 100 mg PO TID 10/08/21 10/08/21 Unknown History Lactobacillus Combination No.4 1 cap PO BID 10/08/21 10/08/21 Unknown History [Probiotic] Mirtazapine [Remeron] 15 mg PO HS 10/08/21 10/08/21 Unknown History Omeprazole 20 mg PO DAILY 10/08/21 10/08/21 Unknown History Patiromer Calcium Sorbitex 16.8 gram PO DAILY 10/08/21 10/08/21 Unknown History [Veltassa] QUEtiapine [SEROquel] 0.5 tab PO BID 10/08/21 10/08/21 Unknown History Ramelteon [Rozerem] 8 mg PO QHS 10/08/21 10/08/21 Unknown History Sennosides [Senna] 2 cap PO HS 10/08/21 10/08/21 Unknown History carvediloL 6.25 mg PO BID 10/08/21 10/08/21 Unknown History levoFLOXacin [Levaquin] 250 mg PO QDAY 10/08/21 10/08/21 Unknown History Active Medications: Generic Name Dose Route Start Last Admin Trade Name Freq PRN Reason Stop Dose Admin Acetaminophen 650 mg 10/07/21 01:34 Acetaminophen 325 Mg Tab PO Q4H PRN Pain MILD(1-3)/Fever >100.5/SWENSON Bisacodyl 10 mg 10/08/21 13:00 10/10/21 16:47 Bisacodyl 5 Mg Tab PO 10 mg QDAY EDUARDA Administration Dextrose 0 ml 10/07/21 11:29 10/11/21 08:21 Dextrose 10% *Hypoglycemia IV 50 ml PRN PRN Administration Hypoglycemia Haloperidol Lactate 2 mg 10/09/21 14:43 10/09/21 14:49 Haloperidol Lactate 5 Mg/1 Ml Inj IM 2 mg Q6H PRN Administration Agitation Dextrose/Sodium Chloride 1,000 mls @ 100 mls/hr 10/11/21 04:00 10/11/21 04:09 D5/0.45ns IV 100 mls/hr DIRECT EDUARDA Administration Magnesium Sulfate 2 gm in 50 mls @ 25 mls/hr 10/11/21 13:54 Magnesium Sulfate 2gm/50ml IV 10/11/21 15:53 ONCE ONE Insulin Human Lispro 0 unit 10/07/21 07:30 10/10/21 22:00 Insulin Lispro 100 Unit/Ml SUB-Q Not Given ACHS [facility] Protocol Magnesium Hydroxide 30 ml 10/07/21 01:34 Magnesium Hydroxide (Mom) Oral Liqd Udc PO Q4H PRN Constipation Morphine Sulfate 2 mg 10/07/21 01:34 Morphine 2 Mg/1 Ml Inj IV Q4H PRN Pain, Moderate (4-6) Morphine Sulfate 4 mg 10/07/21 01:34 Morphine 4 Mg/1 Ml Inj IV Q4H PRN Pain , Severe (7-10) Ondansetron HCl 4 mg 10/07/21 01:34 Ondansetron 4 Mg/2 Ml Inj IV Q8H PRN Nausea And Vomiting Pantoprazole Sodium 40 mg 10/10/21 16:30 10/10/21 16:48 Pantoprazole 40 Mg Tab PO 40 mg BIDAC EDUARDA Administration Polyethylene Glycol 17 gm 10/08/21 13:00 10/11/21 08:26 Polyethylene Glycol 3350 17 Gm Powder PO Not Given BID EDUARDA Sodium Chloride 10 ml 10/07/21 10:00 10/10/21 22:00 Sodium Chloride 0.9% 10 Ml Flush Syringe IV 10 ml BID EDUARDA Administration Sodium Chloride 10 ml 10/07/21 15:18 Sodium Chloride 0.9% 50 Ml Ivpb IV PRN PRN FLUSH
[2021-10-11] MEDS: PANTOPRAZOLE 40 MG TAB PO SCH ×2 (12:30→18:00)
[2021-10-11] MEDS ORDERED: MAGNESIUM SULFATE 2 GM/50 ML BAG IV ONE (13:54)
[2021-10-11] MEDS: SODIUM BICARBONATE 650 MG TAB PO SCH ×2 (17:59→22:03)
--- NOTE | 2021-10-11 19:09 | Progress Note ---
Assessment and Plan Assessment and plan: GI endoscopy colonoscopy and EGD scheduled for this morning Patient s/p EGD, colonoscopy 10/10/2021 EGD findings; small hiatal hernia, normal stomach exam biopsies obtained Normal duodenum exam biopsies obtained 10/10/2021 colonoscopy; colon polyps removed, pandiverticulosis, internal and external hemorrhoids nonbleeding No clear source of anemia identified except for possible prior bleeding from hemorrhoids GI recommend okay to resume anticoagulation tomorrow Discharge home tomorrow if stable patient is hemodynamically and clinically stable at discharge --Anemia Current Visit: Yes Status: Acute Hb 6.7 on admission, received 2 units PRBC transfusion Improved to 9.4, no external evidence of bleeding GI evaluation noted and appreciated Iron profile, low iron levels --History of GI bleed Current Visit: Yes Status: Acute No new episodes of bleeding Follow EGD and colonoscopy findings and recommendations IV Protonix, n.p.o. from midnight --Acute kidney injury Current Visit: Yes Status: Acute Possibly secondary to the GI bleed. Vasomotor nephropathy , closely monitor renal function Avoid nephrotoxins --Severe protein calorie malnutrition; Current Visit: Yes Status: Acute Hypoalbuminemia, nutrition supplements, nutrition consult, Closely monitor --DVT prophylaxis Current Visit: Yes Status: Acute Patient placed on sequential compression device. --Full code status Current Visit: Yes Status: Acute Patient is full code. We will closely monitor the patient and adjust management as needed Plan of care reviewed with the patient and his nurse 10/09/2021; GI rescheduled endoscopy for tomorrow Clear liquids today and n.p.o. from midnight 10/10/2021; patient is having colonoscopy and EGD today Follow-up procedures follow findings and recommendations per GI, 10/11/2021; COVID-19 positive, possible discharge to SNF tomorrow DC planning Case management History Interval history: Patient had EGD colonoscopy yesterday Findings reviewed Started diet today, GI signed off and cleared for discharge Patient has no new complaints COVID-19 test is positive Hospitalist Physical - Constitutional Vitals: Temp Pulse Resp BP Pulse Ox 100.5 F H 106 H 20 133/70 99 10/11/21 17:54 10/11/21 17:54 10/11/21 17:54 10/11/21 17:54 10/11/21 17:54 General appearance: Present: mild distress, cachectic, disheveled, other (Moderate Pallor) - EENT Eyes: Present: PERRL, EOM intact - Neck Neck: Present: supple, normal ROM - Respiratory Respiratory effort: normal Respiratory: bilateral: diminished, negative: rales, rhonchi, wheezing - Cardiovascular Rhythm: regular Heart Sounds: Present: S1 & S2 - Extremities Extremities: no ischemia, No edema - Abdominal General gastrointestinal: soft, non-tender, non-distended, normal bowel sounds - Integumentary Integumentary: Present: clear, warm - Psychiatric Psychiatric: appropriate mood/affect, cooperative - Neurologic Neurologic: CNII-XII intact, moves all extremities Results - Labs CBC & Chem 7: 10/11/21 10:13 10/11/21 10:13 Labs: Laboratory Last Values WBC 4.8 K/mm3 (4.5-11.0) 10/08/21 04:17 RBC 3.12 M/mm3 (3.65-5.03) L 10/08/21 04:17 Hgb 9.3 gm/dl (11.8-15.2) L 10/11/21 10:13 Hct 28.4 % (35.5-45.6) L 10/11/21 10:13 MCV 85 fl (84-94) 10/08/21 04:17 MCH 28 pg (28-32) 10/08/21 04:17 MCHC 33 % (32-34) 10/08/21 04:17 RDW 18.1 % (13.2-15.2) H 10/08/21 04:17 Plt Count 226 K/mm3 (140-440) 10/08/21 04:17 Lymph % (Auto) 18.1 % (13.4-35.0) 10/08/21 04:17 [place] % (Auto) 10.3 % (0.0-7.3) H 10/08/21 04:17 Eos % (Auto) 1.2 % (0.0-4.3) 10/08/21 04:17 Baso % (Auto) 0.4 % (0.0-1.8) 10/08/21 04:17 Lymph # (Auto) 0.9 K/mm3 (1.2-5.4) L 10/08/21 04:17 [place] # (Auto) 0.5 K/mm3 (0.0-0.8) 10/08/21 04:17 Eos # (Auto) 0.1 K/mm3 (0.0-0.4) 10/08/21 04:17 Baso # (Auto) 0.0 K/mm3 (0.0-0.1) 10/08/21 04:17 Seg Neutrophils % 70.0 % (40.0-70.0) 10/08/21 04:17 Seg Neutrophils # 3.4 K/mm3 (1.8-7.7) 10/08/21 04:17 PT 17.6 Sec. (12.2-14.9) H 10/06/21 23:13 INR 1.31 (0.87-1.13) H 10/06/21 23:13 APTT 50.9 Sec. (24.2-36.6) H 10/06/21 23:13 Sodium 135 mmol/L (137-145) L 10/11/21 10:13 Potassium 4.6 mmol/L (3.6-5.0) 10/11/21 10:13 Chloride 104.5 mmol/L (98-107) 10/11/21 10:13 Carbon Dioxide 19 mmol/L (22-30) L 10/11/21 10:13 Anion Gap 16 mmol/L 10/11/21 10:13 BUN 34 mg/dL (9-20) H 10/11/21 10:13 Creatinine 1.8 mg/dL (0.8-1.3) H 10/11/21 10:13 Estimated GFR 45 ml/min 10/11/21 10:13 BUN/Creatinine Ratio 19 % 10/11/21 10:13 Glucose 107 mg/dL (75-100) H 10/11/21 10:13 POC Glucose 77 mg/dL (70-105) 10/11/21 16:06 Calcium 9.1 mg/dL (8.4-10.2) 10/11/21 10:13 Magnesium 1.60 mg/dL (1.7-2.3) L 10/11/21 10:13 Iron 30 ug/dL (49-181) L 10/07/21 16:30 TIBC 107 mcg/dL (250-450) L 10/07/21 16:30 Ferritin 1781.0 ng/mL (30.0-300.0) H 10/07/21 16:30 Total Bilirubin 0.20 mg/dL (0.1-1.2) 10/06/21 23:13 AST 17 units/L (5-40) 10/06/21 23:13 ALT 16 units/L (7-56) 10/06/21 23:13 Alkaline Phosphatase 101 units/L (35-129) 10/06/21 23:13 Total Protein 7.3 g/dL (6.3-8.2) 10/06/21 23:13 Albumin 2.8 g/dL (3.9-5) L 10/06/21 23:13 Albumin/Globulin Ratio 0.6 % 10/06/21 23:13 Urine Creatinine 29.0 mg/dL (0.1-20.0) H 10/08/21 01:37 Urine Sodium 64 mmol/L 10/08/21 01:37 Urine Total Protein 42 mg/dL (5-11.8) H 10/08/21 01:37 Coronavirus (PCR) Positive (Negative) A 10/09/21 08:00 Blood Type AB POSITIVE 10/06/21 23:13 Antibody Screen Negative 10/06/21 23:13 Crossmatch See Detail 10/06/21 23:13 Still/IV: Voiding Method Indwelling Catheter Active Medications - Current Medications Current Medications: Generic Name Dose Route Start Last Admin Trade Name Freq PRN Reason Stop Dose Admin Acetaminophen 650 mg 10/07/21 01:34 Acetaminophen 325 Mg Tab PO Q4H PRN Pain MILD(1-3)/Fever >100.5/SWENSON Bisacodyl 10 mg 10/08/21 13:00 10/11/21 12:30 Bisacodyl 5 Mg Tab PO 10 mg QDAY EDUARDA Administration Dextrose 0 ml 10/07/21 11:29 10/11/21 18:13 Dextrose 10% *Hypoglycemia IV 50 ml PRN PRN Administration Hypoglycemia Haloperidol Lactate 2 mg 10/09/21 14:43 10/09/21 14:49 Haloperidol Lactate 5 Mg/1 Ml Inj IM 2 mg Q6H PRN Administration Agitation Dextrose/Sodium Chloride 1,000 mls @ 100 mls/hr 10/11/21 04:00 10/11/21 18:13 D5/0.45ns IV 100 mls/hr DIRECT EDUARDA Administration Insulin Human Lispro 0 unit 10/07/21 07:30 10/11/21 18:00 Insulin Lispro 100 Unit/Ml SUB-Q Not Given ACHS EDUARDA Protocol Magnesium Hydroxide 30 ml 10/07/21 01:34 Magnesium Hydroxide (Mom) Oral Liqd Udc PO Q4H PRN Constipation Morphine Sulfate 2 mg 10/07/21 01:34 Morphine 2 Mg/1 Ml Inj IV Q4H PRN Pain, Moderate (4-6) Morphine Sulfate 4 mg 10/07/21 01:34 Morphine 4 Mg/1 Ml Inj IV Q4H PRN Pain , Severe (7-10) Ondansetron HCl 4 mg 10/07/21 01:34 Ondansetron 4 Mg/2 Ml Inj IV Q8H PRN Nausea And Vomiting Pantoprazole Sodium 40 mg 10/10/21 16:30 10/11/21 18:00 Pantoprazole 40 Mg Tab PO 40 mg BIDAC EDUARDA Administration Polyethylene Glycol 17 gm 10/08/21 13:00 10/11/21 12:30 Polyethylene Glycol 3350 17 Gm Powder PO 17 gm BID EDUARDA Administration Sodium Bicarbonate 1,300 mg 10/11/21 13:00 10/11/21 17:59 Sodium Bicarbonate 650 Mg Tab PO 1,300 mg BID EDUARDA Administration Sodium Chloride 10 ml 10/07/21 10:00 10/11/21 12:40 Sodium Chloride 0.9% 10 Ml Flush Syringe IV 10 ml BID EDUARDA Administration Sodium Chloride 10 ml 10/07/21 15:18 Sodium Chloride 0.9% 50 Ml Ivpb IV PRN PRN FLUSH Nutrition/Malnutrition Assess - Dietary Evaluation Nutrition/Malnutrition Findings: Nutrition Notes Start: 10/07/21 10:51 Freq: Status: Active Protocol: Document 10/11/21 10:50 JOE (Rec: 10/11/21 11:18 JOE [id number]) Nutrition Notes Initial or Follow up Reassessment Current Diagnosis Decubitus(Pressure Ulcer), Diabetes,Hypertension Other Pertinent Diagnosis LETY, Anemia, GI bleed. Hx: DVT , GERD, Sarcopenia & COVID-19. Current Diet Renal modified -chopped meats- Diet + D Supplements (since L 10/11). Labs/Tests 10/11: Na 135, CO2 19, BUN 34, Crea 1.8, Glu 107, Mg 1.6. Pertinent Medications 10/11: D5/0.45ns 1000 ml @ 100 ml/hr, others nutritionally unremarkable. Height 5 ft 7 in Weight 66.5 kg [place] Body Weight (kg) 67.27 BMI 22.9 Weight change and time frame No body weight change reported in 2 days. Weight Status Appropriate Subjective/Other Information RD consult for dietary and ONS advancement. Pt's PO intake of meals is Negligible (0%), according to ADL notes. Pt underwent colonoscopy and EGD on 10/10. Pt has difficulty chewing, according to Physical Assessment History notes. Pt now on Regular diet, I will change it to Renal modified - chopped meats- diet. I will resume Dietary supplementation to support wound healing processes and possible poor or insuficient PO intake of meals. Percent of energy/protein needs met: Prescribed Renal Diet provides for energy/protein needs (2, 072 Kcal/77 g) during LOS; additionally, Dietary Supplements will compensate for possible poor or insufficient PO intake of meals, and will support wound healing processes with 640 Kcal and 95 g of protein. Burn Absent Trauma Absent GI Symptoms Other Difficulty In Chewing Food Allergy No Skin Integrity/Comment Decubitus sacral pressure ulcer. Current % PO Negligible Minimum of two criteria No #2 Nutrition Diagnosis Biting/Chewing (masticatory) difficulty Etiology Missing teeth. As Evidenced by Signs and Symptoms Pt has difficulty chewing, according to Physical Assessment History notes. #1 Nutrition Diagnosis Increased nutrient needs ( specify in comment below), Inadequate protein-energy intake Diagnosis Progress(for reassessment Continues documentation) Is patient on ventilator? No Is Patient Ambulatory and/or Out of Bed Yes REE-([facility]-ambulatory/OOB) [ 1766.219 [id number]] Calculation Used for Recommendations [facility] Additional Notes Protein: 1.25-1.5 g/Kg; 84-101 g/day. Fluids: 1 ml/Kcal, or as per MD. Nutrition Intervention Change Diet Order: Change to Renal modified Diet -chopped meats-. Add Supplement/Snack (indicate name/kcal 8 fl oz Ensure Max Protein; /protein ) TID. 28.8 g pkt Raji; BID. Provides kCal: 640 Provides Protein (gm) 95 Goal #1 Support, through dietary supplementation, wound healing processes during LOS. Goal #2 Compensate, through dietary supplementation, for possible poor or insufficient PO intake of meals during LOS. Follow-Up By: 10/18/21 Additional Comments Continue monitoring food tolerance, %PO intake of meals , and BM.
[2021-10-11] MEDS: SODIUM CHLORIDE 0.9% 50 ML IVPB IV PRN (22:03)
[2021-10-12] MEDS: D5W/0.45% NACL 1,000 ML IV SCH ×2 (06:17→18:54)
[2021-10-12] MEDS: INSULIN LISPRO 100 UNIT/ML SUB-Q SCH ×4 (09:32→22:11)
[2021-10-12] MEDS: POLYETHYLENE GLYCOL 3350 17 GM POWDER PO SCH ×2 (09:32→21:13)
[2021-10-12] MEDS: SODIUM BICARBONATE 650 MG TAB PO SCH ×2 (09:32→21:13)
[2021-10-12] MEDS: PANTOPRAZOLE 40 MG TAB PO SCH ×2 (09:33→18:55)
--- NOTE | 2021-10-12 18:21 | Progress Note ---
Assessment and Plan Assessment and plan: [place] PCR test positive 10/09/2021 Patient is stable to be discharged and transferred back to SNF today DC planning per case management --COVID-19 test positive 10/09/2021 --History of GI bleed Current Visit: Yes Status: Acute No new episodes of bleeding Follow EGD and colonoscopy findings and recommendations IV Protonix, n.p.o. from midnight Patient s/p EGD, colonoscopy 10/10/2021 EGD findings; small hiatal hernia, normal stomach exam biopsies obtained Normal duodenum exam biopsies obtained 10/10/2021 colonoscopy; colon polyps removed, pandiverticulosis, internal and external hemorrhoids nonbleeding No clear source of anemia identified except for possible prior bleeding from hemorrhoids GI recommend okay to resume anticoagulation tomorrow Discharge home tomorrow if stable patient is hemodynamically and clinically stable at discharge --Anemia Current Visit: Yes Status: Acute Hb 6.7 on admission, received 2 units PRBC transfusion Improved to 9.4, no external evidence of bleeding GI evaluation noted and appreciated Iron profile, low iron levels --Acute kidney injury Current Visit: Yes Status: Acute Possibly secondary to the GI bleed. Vasomotor nephropathy , closely monitor renal function Avoid nephrotoxins --Severe protein calorie malnutrition; Current Visit: Yes Status: Acute Hypoalbuminemia, nutrition supplements, nutrition consult, Closely monitor --DVT prophylaxis Current Visit: Yes Status: Acute Patient placed on sequential compression device. --Full code status Current Visit: Yes Status: Acute Patient is full code. We will closely monitor the patient and adjust management as needed Plan of care reviewed with the patient and his nurse 10/09/2021; GI rescheduled endoscopy for tomorrow Clear liquids today and n.p.o. from midnight 10/10/2021; patient is having colonoscopy and EGD today Follow-up procedures follow findings and recommendations per GI, 10/11/2021; COVID-19 positive, possible discharge to SNF tomorrow DC planning Case management 10/12/2021; stable, awaiting transfer back to SNF DC planning per case management History Interval history: I have seen and examined the patient at the bedside this morning Isolation precautions PPE protocol strictly followed Patient is stable to be discharged back to SNF However as per discharge planning COVID-19 test was done which was reported positive Patient does not have hypoxia, afebrile No new complaints Hospitalist Physical - Constitutional Vitals: Temp Pulse Resp BP Pulse Ox 97.9 F 87 18 136/66 96 10/12/21 11:32 10/12/21 11:32 10/12/21 11:32 10/12/21 11:32 10/12/21 12:50 General appearance: Present: no acute distress, cachectic, disheveled, other (Moderate Pallor) - EENT Eyes: Present: PERRL, EOM intact - Neck Neck: Present: supple, normal ROM - Respiratory Respiratory effort: normal Respiratory: bilateral: diminished, negative: rales, rhonchi, wheezing - Cardiovascular Rhythm: regular Heart Sounds: Present: S1 & S2 - Extremities Extremities: no ischemia, No edema - Abdominal General gastrointestinal: soft, non-tender, non-distended, normal bowel sounds - Integumentary Integumentary: Present: clear, warm - Psychiatric Psychiatric: appropriate mood/affect, cooperative - Neurologic Neurologic: CNII-XII intact, moves all extremities Results - Labs CBC & Chem 7: 10/11/21 10:13 10/11/21 10:13 Labs: Laboratory Last Values WBC 4.8 K/mm3 (4.5-11.0) 10/08/21 04:17 RBC 3.12 M/mm3 (3.65-5.03) L 10/08/21 04:17 Hgb 9.3 gm/dl (11.8-15.2) L 10/11/21 10:13 Hct 28.4 % (35.5-45.6) L 10/11/21 10:13 MCV 85 fl (84-94) 10/08/21 04:17 MCH 28 pg (28-32) 10/08/21 04:17 MCHC 33 % (32-34) 10/08/21 04:17 RDW 18.1 % (13.2-15.2) H 10/08/21 04:17 Plt Count 226 K/mm3 (140-440) 10/08/21 04:17 Lymph % (Auto) 18.1 % (13.4-35.0) 10/08/21 04:17 [place] % (Auto) 10.3 % (0.0-7.3) H 10/08/21 04:17 Eos % (Auto) 1.2 % (0.0-4.3) 10/08/21 04:17 Baso % (Auto) 0.4 % (0.0-1.8) 10/08/21 04:17 Lymph # (Auto) 0.9 K/mm3 (1.2-5.4) L 10/08/21 04:17 [place] # (Auto) 0.5 K/mm3 (0.0-0.8) 10/08/21 04:17 Eos # (Auto) 0.1 K/mm3 (0.0-0.4) 10/08/21 04:17 Baso # (Auto) 0.0 K/mm3 (0.0-0.1) 10/08/21 04:17 Seg Neutrophils % 70.0 % (40.0-70.0) 10/08/21 04:17 Seg Neutrophils # 3.4 K/mm3 (1.8-7.7) 10/08/21 04:17 PT 17.6 Sec. (12.2-14.9) H 10/06/21 23:13 INR 1.31 (0.87-1.13) H 10/06/21 23:13 APTT 50.9 Sec. (24.2-36.6) H 10/06/21 23:13 Sodium 135 mmol/L (137-145) L 10/11/21 10:13 Potassium 4.6 mmol/L (3.6-5.0) 10/11/21 10:13 Chloride 104.5 mmol/L (98-107) 10/11/21 10:13 Carbon Dioxide 19 mmol/L (22-30) L 10/11/21 10:13 Anion Gap 16 mmol/L 10/11/21 10:13 BUN 34 mg/dL (9-20) H 10/11/21 10:13 Creatinine 1.8 mg/dL (0.8-1.3) H 10/11/21 10:13 Estimated GFR 45 ml/min 10/11/21 10:13 BUN/Creatinine Ratio 19 % 10/11/21 10:13 Glucose 107 mg/dL (75-100) H 10/11/21 10:13 POC Glucose 107 mg/dL (70-105) H 10/12/21 11:34 Calcium 9.1 mg/dL (8.4-10.2) 10/11/21 10:13 Magnesium 1.60 mg/dL (1.7-2.3) L 10/11/21 10:13 Iron 30 ug/dL (49-181) L 10/07/21 16:30 TIBC 107 mcg/dL (250-450) L 10/07/21 16:30 Ferritin 1781.0 ng/mL (30.0-300.0) H 10/07/21 16:30 Total Bilirubin 0.20 mg/dL (0.1-1.2) 10/06/21 23:13 AST 17 units/L (5-40) 10/06/21 23:13 ALT 16 units/L (7-56) 10/06/21 23:13 Alkaline Phosphatase 101 units/L (35-129) 10/06/21 23:13 Total Protein 7.3 g/dL (6.3-8.2) 10/06/21 23:13 Albumin 2.8 g/dL (3.9-5) L 10/06/21 23:13 Albumin/Globulin Ratio 0.6 % 10/06/21 23:13 Urine Creatinine 29.0 mg/dL (0.1-20.0) H 10/08/21 01:37 Urine Sodium 64 mmol/L 10/08/21 01:37 Urine Total Protein 42 mg/dL (5-11.8) H 10/08/21 01:37 Coronavirus (PCR) Positive (Negative) A 10/09/21 08:00 Blood Type AB POSITIVE 10/06/21 23:13 Antibody Screen Negative 10/06/21 23:13 Crossmatch See Detail 10/06/21 23:13 Still/IV: Voiding Method Indwelling Catheter Active Medications - Current Medications Current Medications: Generic Name Dose Route Start Last Admin Trade Name Freq PRN Reason Stop Dose Admin Acetaminophen 650 mg 10/07/21 01:34 Acetaminophen 325 Mg Tab PO Q4H PRN Pain MILD(1-3)/Fever >100.5/SWENSON Bisacodyl 10 mg 10/08/21 13:00 10/12/21 09:32 Bisacodyl 5 Mg Tab PO 10 mg QDAY EDUARDA Administration Dextrose 0 ml 10/07/21 11:29 10/11/21 18:13 Dextrose 10% *Hypoglycemia IV 50 ml PRN PRN Administration Hypoglycemia Haloperidol Lactate 2 mg 10/09/21 14:43 10/09/21 14:49 Haloperidol Lactate 5 Mg/1 Ml Inj IM 2 mg Q6H PRN Administration Agitation Dextrose/Sodium Chloride 1,000 mls @ 100 mls/hr 10/11/21 04:00 10/12/21 06:17 D5/0.45ns IV 100 mls/hr DIRECT EDUARDA Administration Insulin Human Lispro 0 unit 10/07/21 07:30 10/12/21 12:55 Insulin Lispro 100 Unit/Ml SUB-Q Not Given ACHS EDUARDA Protocol Magnesium Hydroxide 30 ml 10/07/21 01:34 Magnesium Hydroxide (Mom) Oral Liqd Udc PO Q4H PRN Constipation Morphine Sulfate 2 mg 10/07/21 01:34 Morphine 2 Mg/1 Ml Inj IV Q4H PRN Pain, Moderate (4-6) Morphine Sulfate 4 mg 10/07/21 01:34 Morphine 4 Mg/1 Ml Inj IV Q4H PRN Pain , Severe (7-10) Ondansetron HCl 4 mg 10/07/21 01:34 Ondansetron 4 Mg/2 Ml Inj IV Q8H PRN Nausea And Vomiting Pantoprazole Sodium 40 mg 10/10/21 16:30 10/12/21 09:33 Pantoprazole 40 Mg Tab PO 40 mg BIDAC EDUARDA Administration Polyethylene Glycol 17 gm 10/08/21 13:00 10/12/21 09:32 Polyethylene Glycol 3350 17 Gm Powder PO 17 gm BID EDUARDA Administration Sodium Bicarbonate 1,300 mg 10/11/21 13:00 10/12/21 09:32 Sodium Bicarbonate 650 Mg Tab PO 1,300 mg BID EDUARDA Administration Sodium Chloride 10 ml 10/07/21 10:00 10/12/21 09:34 Sodium Chloride 0.9% 10 Ml Flush Syringe IV 10 ml BID EDUARDA Administration Sodium Chloride 10 ml 10/07/21 15:18 10/11/21 22:03 Sodium Chloride 0.9% 50 Ml Ivpb IV 10 ml PRN PRN Administration FLUSH Nutrition/Malnutrition Assess - Dietary Evaluation Nutrition/Malnutrition Findings: Nutrition Notes Start: 10/07/21 10:51 Freq: Status: Active Protocol: Document 10/11/21 10:50 JOE (Rec: 10/11/21 11:18 JOE [id number]) Nutrition Notes Initial or Follow up Reassessment Current Diagnosis Decubitus(Pressure Ulcer), Diabetes,Hypertension Other Pertinent Diagnosis LETY, Anemia, GI bleed. Hx: DVT , GERD, Sarcopenia & COVID-19. Current Diet Renal modified -chopped meats- Diet + D Supplements (since L 10/11). Labs/Tests 10/11: Na 135, CO2 19, BUN 34, Crea 1.8, Glu 107, Mg 1.6. Pertinent Medications 10/11: D5/0.45ns 1000 ml @ 100 ml/hr, others nutritionally unremarkable. Height 5 ft 7 in Weight 66.5 kg [place] Body Weight (kg) 67.27 BMI 22.9 Weight change and time frame No body weight change reported in 2 days. Weight Status Appropriate Subjective/Other Information RD consult for dietary and ONS advancement. Pt's PO intake of meals is Negligible (0%), according to ADL notes. Pt underwent colonoscopy and EGD on 10/10. Pt has difficulty chewing, according to Physical Assessment History notes. Pt now on Regular diet, I will change it to Renal modified - chopped meats- diet. I will resume Dietary supplementation to support wound healing processes and possible poor or insuficient PO intake of meals. Percent of energy/protein needs met: Prescribed Renal Diet provides for energy/protein needs (2, 072 Kcal/77 g) during LOS; additionally, Dietary Supplements will compensate for possible poor or insufficient PO intake of meals, and will support wound healing processes with 640 Kcal and 95 g of protein. Burn Absent Trauma Absent GI Symptoms Other Difficulty In Chewing Food Allergy No Skin Integrity/Comment Decubitus sacral pressure ulcer. Current % PO Negligible Minimum of two criteria No #2 Nutrition Diagnosis Biting/Chewing (masticatory) difficulty Etiology Missing teeth. As Evidenced by Signs and Symptoms Pt has difficulty chewing, according to Physical Assessment History notes. #1 Nutrition Diagnosis Increased nutrient needs ( specify in comment below), Inadequate protein-energy intake Diagnosis Progress(for reassessment Continues documentation) Is patient on ventilator? No Is Patient Ambulatory and/or Out of Bed Yes REE-([facility]-ambulatory/OOB) [ 1766.219 [id number]] [facility] Additional Notes Protein: 1.25-1.5 g/Kg; 84-101 g/day. Fluids: 1 ml/Kcal, or as per MD. Nutrition Intervention Change Diet Order: Change to Renal modified Diet -chopped meats-. Add Supplement/Snack (indicate name/kcal 8 fl oz Ensure Max Protein; /protein ) TID. 28.8 g pkt Raji; BID. Provides kCal: 640 Provides Protein (gm) 95 Goal #1 Support, through dietary supplementation, wound healing processes during LOS. Goal #2 Compensate, through dietary supplementation, for possible poor or insufficient PO intake of meals during LOS. Follow-Up By: 10/18/21 Additional Comments Continue monitoring food tolerance, %PO intake of meals , and BM.
--- NOTE | 2021-10-12 18:23 | Progress Note ---
Assessment and Plan Assessment and plan: --COVID-19 test positive 10/10/2021 Current Visit: Yes Status: Acute Isolation precautions droplet and contact Inflammatory markers, home O2 evaluation Prone positioning if needed Steroids 10 days, no remdesivir due to acute kidney injury --Elevated D-dimers more than 10,000 Current Visit: Yes Status: Acute VQ scan to rule out PE Lower extremity venous Doppler to rule out DVT Oxygen assessment, supplemental oxygen if needed --History of GI bleed Current Visit: Yes Status: Acute No new episodes of bleeding Follow EGD and colonoscopy findings and recommendations IV Protonix, n.p.o. from midnight Patient s/p EGD, colonoscopy 10/10/2021 EGD findings; small hiatal hernia, normal stomach exam biopsies obtain ed Normal duodenum exam biopsies obtained 10/10/2021 colonoscopy; colon polyps removed, pandiverticulosis, internal and external hemorrhoids nonbleeding No clear source of anemia identified except for possible prior bleeding from hemorrhoids GI recommend okay to resume anticoagulation tomorrow Discharge home tomorrow if stable patient is hemodynamically and clinically stable at discharge --Anemia Current Visit: Yes Status: Acute Hb 6.7 on admission, received 2 units PRBC transfusion Improved to 9.4, no external evidence of bleeding GI evaluation noted and appreciated Iron profile, low iron levels --Acute kidney injury Current Visit: Yes Status: Acute Possibly secondary to the GI bleed. Vasomotor nephropathy , closely monitor renal function Avoid nephrotoxins --Severe protein calorie malnutrition; Current Visit: Yes Status: Acute Hypoalbuminemia, nutrition supplements, nutrition consult, Closely monitor --DVT prophylaxis Current Visit: Yes Status: Acute Patient placed on sequential compression device. --Full code status Current Visit: Yes Status: Acute Patient is full code. We will closely monitor the patient and adjust management as needed Plan of care reviewed with the patient and his nurse Brief history and daily hospital course: 76-year-old male patient was admitted with severe anemia and GI bleeding received blood transfusion underwent EGD colonoscopy GI cleared for discharge back to [facility], patient had predischarge Covid test which was positive, patient had very high D-dimers of more than 10,000, VQ scan, lower extremity venous Dopplers requested Unable to give empiric therapeutic Lovenox due to history of severe GI bleeding and anemia. Follow VQ scan, venous Doppler, follow ID evaluation 10/09; GI rescheduled endoscopy for tomorrow Clear liquids today and n.p.o. from midnight 10/10; patient is having colonoscopy and EGD today Follow-up procedures follow findings and recommendations per GI, 10/11: COVID-19 positive, inflammatory markers, Covid management 10/12: Inflammatory markers, O2 evaluation 10/13:D-dimers more than 10,000, check VQ scan, venous Doppler to rule out PE and DVT Disposition; follow VQ scan, lower extremity venous Doppler, follow ID evaluation recommendation Discharge when medically stable History Interval history: I seen and examined the patient at the bedside Patient's chart and medications reviewed Patient is Covid positive[tested prior to sending to [facility]] Elevated D-dimers more than 10,000 Patient is not in shortness of breath Vital signs noted Hospitalist Physical - Constitutional Vitals: Temp Pulse Resp BP Pulse Ox 97.9 F 87 18 136/66 96 10/12/21 11:32 10/12/21 11:32 10/12/21 11:32 10/12/21 11:32 10/12/21 12:50 General appearance: Present: no acute distress, cachectic, disheveled, other (Moderate Pallor) - EENT Eyes: Present: PERRL, EOM intact - Neck Neck: Present: supple, normal ROM - Respiratory Respiratory effort: normal Respiratory: bilateral: diminished, negative: rales, rhonchi, wheezing - Cardiovascular Rhythm: regular Heart Sounds: Present: S1 & S2 - Extremities Extremities: no ischemia, No edema - Abdominal General gastrointestinal: soft, non-tender, non-distended, normal bowel sounds - Integumentary Integumentary: Present: clear, warm - Psychiatric Psychiatric: appropriate mood/affect, cooperative - Neurologic Neurologic: moves all extremities Results - Labs CBC & Chem 7: 10/11/21 10:13 10/11/21 10:13 Labs: Laboratory Last Values WBC 4.8 K/mm3 (4.5-11.0) 10/08/21 04:17 RBC 3.12 M/mm3 (3.65-5.03) L 10/08/21 04:17 Hgb 9.3 gm/dl (11.8-15.2) L 10/11/21 10:13 Hct 28.4 % (35.5-45.6) L 10/11/21 10:13 MCV 85 fl (84-94) 10/08/21 04:17 MCH 28 pg (28-32) 10/08/21 04:17 MCHC 33 % (32-34) 10/08/21 04:17 RDW 18.1 % (13.2-15.2) H 10/08/21 04:17 Plt Count 226 K/mm3 (140-440) 10/08/21 04:17 Lymph % (Auto) 18.1 % (13.4-35.0) 10/08/21 04:17 [place] % (Auto) 10.3 % (0.0-7.3) H 10/08/21 04:17 Eos % (Auto) 1.2 % (0.0-4.3) 10/08/21 04:17 Baso % (Auto) 0.4 % (0.0-1.8) 10/08/21 04:17 Lymph # (Auto) 0.9 K/mm3 (1.2-5.4) L 10/08/21 04:17 [place] # (Auto) 0.5 K/mm3 (0.0-0.8) 10/08/21 04:17 Eos # (Auto) 0.1 K/mm3 (0.0-0.4) 10/08/21 04:17 Baso # (Auto) 0.0 K/mm3 (0.0-0.1) 10/08/21 04:17 Seg Neutrophils % 70.0 % (40.0-70.0) 10/08/21 04:17 Seg Neutrophils # 3.4 K/mm3 (1.8-7.7) 10/08/21 04:17 PT 17.6 Sec. (12.2-14.9) H 10/06/21 23:13 INR 1.31 (0.87-1.13) H 10/06/21 23:13 APTT 50.9 Sec. (24.2-36.6) H 10/06/21 23:13 Sodium 135 mmol/L (137-145) L 10/11/21 10:13 Potassium 4.6 mmol/L (3.6-5.0) 10/11/21 10:13 Chloride 104.5 mmol/L (98-107) 10/11/21 10:13 Carbon Dioxide 19 mmol/L (22-30) L 10/11/21 10:13 Anion Gap 16 mmol/L 10/11/21 10:13 BUN 34 mg/dL (9-20) H 10/11/21 10:13 Creatinine 1.8 mg/dL (0.8-1.3) H 10/11/21 10:13 Estimated GFR 45 ml/min 10/11/21 10:13 BUN/Creatinine Ratio 19 % 10/11/21 10:13 Glucose 107 mg/dL (75-100) H 10/11/21 10:13 POC Glucose 107 mg/dL (70-105) H 10/12/21 11:34 Calcium 9.1 mg/dL (8.4-10.2) 10/11/21 10:13 Magnesium 1.60 mg/dL (1.7-2.3) L 10/11/21 10:13 Iron 30 ug/dL (49-181) L 10/07/21 16:30 TIBC 107 mcg/dL (250-450) L 10/07/21 16:30 Ferritin 1781.0 ng/mL (30.0-300.0) H 10/07/21 16:30 Total Bilirubin 0.20 mg/dL (0.1-1.2) 10/06/21 23:13 AST 17 units/L (5-40) 10/06/21 23:13 ALT 16 units/L (7-56) 10/06/21 23:13 Alkaline Phosphatase 101 units/L (35-129) 10/06/21 23:13 Total Protein 7.3 g/dL (6.3-8.2) 10/06/21 23:13 Albumin 2.8 g/dL (3.9-5) L 10/06/21 23:13 Albumin/Globulin Ratio 0.6 % 10/06/21 23:13 Urine Creatinine 29.0 mg/dL (0.1-20.0) H 10/08/21 01:37 Urine Sodium 64 mmol/L 10/08/21 01:37 Urine Total Protein 42 mg/dL (5-11.8) H 10/08/21 01:37 Coronavirus (PCR) Positive (Negative) A 10/09/21 08:00 Blood Type AB POSITIVE 10/06/21 23:13 Antibody Screen Negative 10/06/21 23:13 Crossmatch See Detail 10/06/21 23:13 Still/IV: Voiding Method Indwelling Catheter Active Medications - Current Medications Current Medications: Generic Name Dose Route Start Last Admin Trade Name Freq PRN Reason Stop Dose Admin Acetaminophen 650 mg 10/07/21 01:34 Acetaminophen 325 Mg Tab PO Q4H PRN Pain MILD(1-3)/Fever >100.5/SWENSON Bisacodyl 10 mg 10/08/21 13:00 10/12/21 09:32 Bisacodyl 5 Mg Tab PO 10 mg QDAY EDUARDA Administration Dextrose 0 ml 10/07/21 11:29 10/11/21 18:13 Dextrose 10% *Hypoglycemia IV 50 ml PRN PRN Administration Hypoglycemia Haloperidol Lactate 2 mg 10/09/21 14:43 10/09/21 14:49 Haloperidol Lactate 5 Mg/1 Ml Inj IM 2 mg Q6H PRN Administration Agitation Dextrose/Sodium Chloride 1,000 mls @ 100 mls/hr 10/11/21 04:00 10/12/21 06:17 D5/0.45ns IV 100 mls/hr DIRECT EDUARDA Administration Insulin Human Lispro 0 unit 10/07/21 07:30 10/12/21 12:55 Insulin Lispro 100 Unit/Ml SUB-Q Not Given ACHS ON LICENSE OF [facility] Protocol Magnesium Hydroxide 30 ml 10/07/21 01:34 Magnesium Hydroxide (Mom) Oral Liqd Udc PO Q4H PRN Constipation Morphine Sulfate 2 mg 10/07/21 01:34 Morphine 2 Mg/1 Ml Inj IV Q4H PRN Pain, Moderate (4-6) Morphine Sulfate 4 mg 10/07/21 01:34 Morphine 4 Mg/1 Ml Inj IV Q4H PRN Pain , Severe (7-10) Ondansetron HCl 4 mg 10/07/21 01:34 Ondansetron 4 Mg/2 Ml Inj IV Q8H PRN Nausea And Vomiting Pantoprazole Sodium 40 mg 10/10/21 16:30 10/12/21 09:33 Pantoprazole 40 Mg Tab PO 40 mg BIDAC EDUARDA Administration Polyethylene Glycol 17 gm 10/08/21 13:00 10/12/21 09:32 Polyethylene Glycol 3350 17 Gm Powder PO 17 gm BID EDUARDA Administration Sodium Bicarbonate 1,300 mg 10/11/21 13:00 10/12/21 09:32 Sodium Bicarbonate 650 Mg Tab PO 1,300 mg BID EDUARDA Administration Sodium Chloride 10 ml 10/07/21 10:00 10/12/21 09:34 Sodium Chloride 0.9% 10 Ml Flush Syringe IV 10 ml BID EDUARDA Administration Sodium Chloride 10 ml 10/07/21 15:18 10/11/21 22:03 Sodium Chloride 0.9% 50 Ml Ivpb IV 10 ml PRN PRN Administration FLUSH Nutrition/Malnutrition Assess - Dietary Evaluation Nutrition/Malnutrition Findings: Nutrition Notes Start: 10/07/21 10:51 Freq: Status: Active Protocol: Document 10/11/21 10:50 JOE (Rec: 10/11/21 11:18 JOE [id number]) Nutrition Notes Initial or Follow up Reassessment Current Diagnosis Decubitus(Pressure Ulcer), Diabetes,Hypertension Other Pertinent Diagnosis LETY, Anemia, GI bleed. Hx: DVT , GERD, Sarcopenia & COVID-19. Current Diet Renal modified -chopped meats- Diet + D Supplements (since L 10/11). Labs/Tests 10/11: Na 135, CO2 19, BUN 34, Crea 1.8, Glu 107, Mg 1.6. Pertinent Medications 10/11: D5/0.45ns 1000 ml @ 100 ml/hr, others nutritionally unremarkable. Height 5 ft 7 in Weight 66.5 kg [place] Body Weight (kg) 67.27 BMI 22.9 Weight change and time frame No body weight change reported in 2 days. Weight Status Appropriate Subjective/Other Information RD consult for dietary and ONS advancement. Pt's PO intake of meals is Negligible (0%), according to ADL notes. Pt underwent colonoscopy and EGD on 10/10. Pt has difficulty chewing, according to Physical Assessment History notes. Pt now on Regular diet, I will change it to Renal modified - chopped meats- diet. I will resume Dietary supplementation to support wound healing processes and possible poor or insuficient PO intake of meals. Percent of energy/protein needs met: Prescribed Renal Diet provides for energy/protein needs (2, 072 Kcal/77 g) during LOS; additionally, Dietary Supplements will compensate for possible poor or insufficient PO intake of meals, and will support wound healing processes with 640 Kcal and 95 g of protein. Burn Absent Trauma Absent GI Symptoms Other Difficulty In Chewing Food Allergy No Skin Integrity/Comment Decubitus sacral pressure ulcer. Current % PO Negligible Minimum of two criteria No #2 Nutrition Diagnosis Biting/Chewing (masticatory) difficulty Etiology Missing teeth. As Evidenced by Signs and Symptoms Pt has difficulty chewing, according to Physical Assessment History notes. #1 Nutrition Diagnosis Increased nutrient needs ( specify in comment below), Inadequate protein-energy intake Diagnosis Progress(for reassessment Continues documentation) Is patient on ventilator? No Is Patient Ambulatory and/or Out of Bed Yes REE-([facility]-ambulatory/OOB) [ 1766.219 [id number]] Calculation Used for Recommendations [facility] Additional Notes Protein: 1.25-1.5 g/Kg; 84-101 g/day. Fluids: 1 ml/Kcal, or as per MD. Nutrition Intervention Change Diet Order: Change to Renal modified Diet -chopped meats-. Add Supplement/Snack (indicate name/kcal 8 fl oz Ensure Max Protein; /protein ) TID. 28.8 g pkt Raji; BID. Provides kCal: 640 Provides Protein (gm) 95 Goal #1 Support, through dietary supplementation, wound healing processes during LOS. Goal #2 Compensate, through dietary supplementation, for possible poor or insufficient PO intake of meals during LOS. Follow-Up By: 10/18/21 Additional Comments Continue monitoring food tolerance, %PO intake of meals , and BM.
--- NOTE | 2021-10-12 18:59 | XRay Report ---
CHEST 1 VIEW INDICATION / CLINICAL INFORMATION: COVID-19/evaluate for pneumonia STUDY TIME: 1830 COMPARISON: None available. FINDINGS: SUPPORT DEVICES: None HEART / MEDIASTINUM: No significant abnormality. LUNGS / PLEURA: Moderate focal pneumonic type infiltrate is seen in the right lung base, likely the r ight lower lobe. There appears to be a small right pleural effusion in the major fissure. Left lung f ield is clear. No pneumothorax. ADDITIONAL FINDINGS: No significant additional findings. Signer Name: Juan Manuel Cochran MD Signed: 10/12/2021 6:55 PM Workstation Name: [id number]
[2021-10-13] MEDS: D5W/0.45% NACL 1,000 ML IV SCH ×2 (05:30→18:16)
[2021-10-13] MEDS: SODIUM BICARBONATE 650 MG TAB PO SCH ×2 (09:17→22:02)
[2021-10-13] MEDS: INSULIN LISPRO 100 UNIT/ML SUB-Q SCH ×4 (09:18→21:47)
[2021-10-13] MEDS: PANTOPRAZOLE 40 MG TAB PO SCH ×2 (09:18→18:15)
[2021-10-13] MEDS: POLYETHYLENE GLYCOL 3350 17 GM POWDER PO SCH ×2 (09:18→22:02)
--- NOTE | 2021-10-13 10:43 | Event Note ---
Date: 10/13/21 I called patient's son Mr. Tayo Ruiz at [phone] and discussed in detail patient's condition, treatment plan, positive Covid status, Covid work-up that is pending and discharge planning when patient is stable, I answered all his questions, he verbalized understanding
--- NOTE | 2021-10-13 14:04 | Progress Note ---
Assessment and Plan - Patient Problems (1) Acute kidney injury Current Visit: Yes Status: Acute Plan to address problem: Renal function stable. No new labs this morning. Will order labs for tomorrow (2) Anemia Current Visit: Yes Status: Acute Plan to address problem: Transfuse to maintain hemoglobin > 7. (3) Metabolic acidosis Current Visit: Yes Status: Chronic Plan to address problem: Continue sodium bicarbonate regimen . (4) COVID-19 Current Visit: Yes Status: Acute Plan to address problem: Management per primary team Subjective Date of service: 10/13/21 Principal diagnosis: LETY Interval history: No changes from renal standpoint. No new labs this morning Objective - Exam Narrative Exam: Patient not examined directly in order to preserve personal protective equipment and decrease the risk of transmission of COVID-19 pneumonia. - Vital Signs Vital signs: Vital Signs - 12hr 10/13/21 10/13/21 10/13/21 03:00 12:57 13:48 Temperature 98.7 F Pulse Rate 83 Respiratory 18 Rate Blood Pressure 136/84 O2 Sat by Pulse 97 99 96 Oximetry - Lab 10/11/21 10:13 10/11/21 10:13 Most recent lab results Calcium 9.1 mg/dL (8.4-10.2) 10/11/21 10:13 Magnesium 1.60 mg/dL (1.7-2.3) L 10/11/21 10:13 Urine Creatinine 29.0 mg/dL (0.1-20.0) H 10/08/21 01:37 Urine Sodium 64 mmol/L 10/08/21 01:37 Urine Total Protein 42 mg/dL (5-11.8) H 10/08/21 01:37 Medications & Allergies - Medications Allergies/Adverse Reactions: Allergies No Known Allergies Allergy (Verified 10/06/21 22:36) Home Medications: Home Medications Medication Instructions Recorded Confirmed Last Taken Type Acetaminophen [Tylenol] 650 mg PO Q8HR PRN 10/08/21 10/08/21 Unknown History Amlodipine Besylate [Norvasc] 5 mg PO DAILY 10/08/21 10/08/21 Unknown History Apixaban [Eliquis] 2.5 mg PO BID 10/08/21 10/08/21 Unknown History Ascorbic Acid [Vitamin C with Cassandra 500 mg PO BID 10/08/21 10/08/21 Unknown History Hips] Aspirin BABY CHEW TAB 81 mg PO DAILY 10/08/21 10/08/21 Unknown History AtorvaSTATin [Lipitor] 10 mg PO QHS 10/08/21 10/08/21 Unknown History Cyanocobalamin (Vitamin B-12) 1,000 mcg PO DAILY 10/08/21 10/08/21 Unknown History [Vitamin B-12] Cymbalta 60 mg PO DAILY 10/08/21 10/08/21 Unknown History Divalproex Sodium [Depakote 125 mg PO TID 10/08/21 10/08/21 Unknown History Sprinkle] Docusate Sodium [Colace] 100 mg PO BID PRN 10/08/21 10/08/21 Unknown History Folic Acid [Folvite] 1 mg PO QDAY 10/08/21 10/08/21 Unknown History Gabapentin 100 mg PO TID 10/08/21 10/08/21 Unknown History Lactobacillus Combination No.4 1 cap PO BID 10/08/21 10/08/21 Unknown History [Probiotic] Mirtazapine [Remeron] 15 mg PO HS 10/08/21 10/08/21 Unknown History Omeprazole 20 mg PO DAILY 10/08/21 10/08/21 Unknown History Patiromer Calcium Sorbitex 16.8 gram PO DAILY 10/08/21 10/08/21 Unknown History [Veltassa] QUEtiapine [SEROquel] 0.5 tab PO BID 10/08/21 10/08/21 Unknown History Ramelteon [Rozerem] 8 mg PO QHS 10/08/21 10/08/21 Unknown History Sennosides [Senna] 2 cap PO HS 10/08/21 10/08/21 Unknown History carvediloL 6.25 mg PO BID 10/08/21 10/08/21 Unknown History levoFLOXacin [Levaquin] 250 mg PO QDAY 10/08/21 10/08/21 Unknown History Active Medications: Generic Name Dose Route Start Last Admin Trade Name Freq PRN Reason Stop Dose Admin Acetaminophen 650 mg 10/07/21 01:34 10/12/21 21:13 Acetaminophen 325 Mg Tab PO 650 mg Q4H PRN Administration Pain MILD(1-3)/Fever >100.5/SWENSON Bisacodyl 10 mg 10/08/21 13:00 10/13/21 09:17 Bisacodyl 5 Mg Tab PO 10 mg QDAY EDUARDA Administration Dextrose 0 ml 10/07/21 11:29 10/11/21 18:13 Dextrose 10% *Hypoglycemia IV 50 ml PRN PRN Administration Hypoglycemia Haloperidol Lactate 2 mg 10/09/21 14:43 10/09/21 14:49 Haloperidol Lactate 5 Mg/1 Ml Inj IM 2 mg Q6H PRN Administration Agitation Dextrose/Sodium Chloride 1,000 mls @ 100 mls/hr 10/11/21 04:00 10/13/21 05:30 D5/0.45ns IV 100 mls/hr DIRECT EDUARDA Administration Insulin Human Lispro 0 unit 10/07/21 07:30 10/13/21 13:09 Insulin Lispro 100 Unit/Ml SUB-Q Not Given ACHS [facility] Protocol Magnesium Hydroxide 30 ml 10/07/21 01:34 Magnesium Hydroxide (Mom) Oral Liqd Udc PO Q4H PRN Constipation Morphine Sulfate 2 mg 10/07/21 01:34 Morphine 2 Mg/1 Ml Inj IV Q4H PRN Pain, Moderate (4-6) Morphine Sulfate 4 mg 10/07/21 01:34 Morphine 4 Mg/1 Ml Inj IV Q4H PRN Pain , Severe (7-10) Ondansetron HCl 4 mg 10/07/21 01:34 Ondansetron 4 Mg/2 Ml Inj IV Q8H PRN Nausea And Vomiting Pantoprazole Sodium 40 mg 10/10/21 16:30 10/13/21 09:18 Pantoprazole 40 Mg Tab PO 40 mg BIDAC EDUARDA Administration Polyethylene Glycol 17 gm 10/08/21 13:00 10/13/21 09:18 Polyethylene Glycol 3350 17 Gm Powder PO Not Given BID EDUARDA Sodium Bicarbonate 1,300 mg 10/11/21 13:00 10/13/21 09:17 Sodium Bicarbonate 650 Mg Tab PO 1,300 mg BID EDUARDA Administration Sodium Chloride 10 ml 10/07/21 10:00 10/13/21 11:47 Sodium Chloride 0.9% 10 Ml Flush Syringe IV 10 ml BID EDUARDA Administration Sodium Chloride 10 ml 10/07/21 15:18 10/11/21 22:03 Sodium Chloride 0.9% 50 Ml Ivpb IV 10 ml PRN PRN Administration FLUSH
[2021-10-13] MEDS ORDERED: dexAMETHasone 4 MG/ML VIAL IV ONE (19:18)
[2021-10-13] MEDS: SODIUM CHLORIDE 0.9% 50 ML IVPB IV PRN (22:02)
[2021-10-14] MEDS: INSULIN LISPRO 100 UNIT/ML SUB-Q SCH ×4 (07:30→23:43)
[2021-10-14] MEDS ORDERED: dexAMETHasone 4 MG/ML VIAL IV SCH (10:00)
[2021-10-14] MEDS: SODIUM BICARBONATE 650 MG TAB PO SCH ×2 (10:18→22:15)
[2021-10-14] MEDS: POLYETHYLENE GLYCOL 3350 17 GM POWDER PO SCH ×2 (10:19→22:15)
[2021-10-14] MEDS: D5W/0.45% NACL 1,000 ML IV SCH ×2 (10:20→19:37)
[2021-10-14] MEDS: PANTOPRAZOLE 40 MG TAB PO SCH ×2 (10:20→17:45)
[2021-10-14 10:28] LABS: Albumin 2.5 g/dL (3.9-5); Calcium 8.9 mg/dL (8.4-10.2)
[2021-10-14 10:37] LABS: Hematocrit 26.2 % (35.5-45.6); Hemoglobin 8.7 gm/dl (11.8-15.2)
--- NOTE | 2021-10-14 10:50 | Vascular Lab Report ---
DUPLEX DOPPLER LOWER EXTREMITY VEINS, BILATERAL INDICATION / CLINICAL INFORMATION: COVID-19/elevated D-dimers/rule out DVT. TECHNIQUE: Duplex doppler imaging was performed through the veins of both lower extremities using venous jimmie marianne and other maneuvers. COMPARISON: None available. FINDINGS: RIGHT COMMON FEMORAL VEIN: Negative. RIGHT FEMORAL VEIN: Negative. RIGHT POPLITEAL VEIN: Negative. RIGHT CALF VEINS: Negative. LEFT COMMON FEMORAL VEIN: Negative. LEFT FEMORAL VEIN: Negative. LEFT POPLITEAL VEIN: Negative. LEFT CALF VEINS: Negative. ADDITIONAL FINDINGS: None. IMPRESSION: 1. No sonographic evidence for DVT in either lower extremity. Signer Name: Jonnathan Villatoro MD Signed: 10/14/2021 10:46 AM Workstation Name: [id number]
--- NOTE | 2021-10-14 11:23 | XRay Report ---
CHEST 1 VIEW 10/14/2021 9:35 AM INDICATION / CLINICAL INFORMATION: Covid positive, elevated d-dimer, possible PE COMPARISON: One view of the chest from 10/12/2021. FINDINGS: SUPPORT DEVICES: None. HEART / MEDIASTINUM: Stable. LUNGS / PLEURA: Right basilar opacities appear more dense and organized. The lungs are otherwise bárbara r. No significant pleural effusion. No pneumothorax. ADDITIONAL FINDINGS: No significant additional findings. IMPRESSION: Interval evolution of probable right basilar pneumonia as above without new acute findings. Signer Name: Doron Larson MD Signed: 10/14/2021 11:19 AM Workstation Name: [id number]
--- NOTE | 2021-10-14 11:28 | Nuclear Medicine Report ---
NM perfusion only lung scan INDICATION / CLINICAL INFORMATION: COVID-19/elevated D-dimers/rule out PE. TRACER: Technetium 99m MAA 5.2 mCi IV injection. COMPARISON: Chest x-ray earlier the same day. FINDINGS: Following injection of the above tracer, perfusion imaging was performed in 8 projections. Perfusion imaging is mildly heterogeneous. No discrete, suspicious perfusion defect. IMPRESSION: Negative for suspicious perfusion defect. Signer Name: Mundo Lucas MD Signed: 10/14/2021 11:24 AM Workstation Name: [id number]
--- NOTE | 2021-10-14 11:46 | Progress Note ---
Assessment and Plan - Patient Problems (1) Acute kidney injury Current Visit: Yes Status: Acute Plan to address problem: Renal function stable. cont current supportive care (2) Anemia Current Visit: Yes Status: Acute Plan to address problem: Transfuse to maintain hemoglobin > 7. 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 I reviewed multidisciplinary notes Objective - Exam Narrative Exam: Patient was not examined at the bedside today due to the COVID-19 status. - Vital Signs Vital signs: Vital Signs - 12hr 10/14/21 10/14/21 03:00 04:57 Temperature 97.5 F L Pulse Rate 78 Respiratory 16 Rate Blood Pressure 132/71 O2 Sat by Pulse 98 98 Oximetry - Lab 10/14/21 09:23 10/14/21 09:23 Most recent lab results Calcium 8.9 mg/dL (8.4-10.2) 10/14/21 09:23 Magnesium 1.90 mg/dL (1.7-2.3) 10/14/21 09:23 Urine Creatinine 29.0 mg/dL (0.1-20.0) H 10/08/21 01:37 Urine Sodium 64 mmol/L 10/08/21 01:37 Urine Total Protein 42 mg/dL (5-11.8) H 10/08/21 01:37 Medications & Allergies - Medications Allergies/Adverse Reactions: Allergies No Known Allergies Allergy (Verified 10/06/21 22:36) Home Medications: Home Medications Medication Instructions Recorded Confirmed Last Taken Type Acetaminophen [Tylenol] 650 mg PO Q8HR PRN 10/08/21 10/08/21 Unknown History Amlodipine Besylate [Norvasc] 5 mg PO DAILY 10/08/21 10/08/21 Unknown History Apixaban [Eliquis] 2.5 mg PO BID 10/08/21 10/08/21 Unknown History Ascorbic Acid [Vitamin C with Cassandra 500 mg PO BID 10/08/21 10/08/21 Unknown History Hips] Aspirin BABY CHEW TAB 81 mg PO DAILY 10/08/21 10/08/21 Unknown History AtorvaSTATin [Lipitor] 10 mg PO QHS 10/08/21 10/08/21 Unknown History Cyanocobalamin (Vitamin B-12) 1,000 mcg PO DAILY 10/08/21 10/08/21 Unknown History [Vitamin B-12] Cymbalta 60 mg PO DAILY 10/08/21 10/08/21 Unknown History Divalproex Sodium [Depakote 125 mg PO TID 10/08/21 10/08/21 Unknown History Sprinkle] Docusate Sodium [Colace] 100 mg PO BID PRN 10/08/21 10/08/21 Unknown History Folic Acid [Folvite] 1 mg PO QDAY 10/08/21 10/08/21 Unknown History Gabapentin 100 mg PO TID 10/08/21 10/08/21 Unknown History Lactobacillus Combination No.4 1 cap PO BID 10/08/21 10/08/21 Unknown History [Probiotic] Mirtazapine [Remeron] 15 mg PO HS 10/08/21 10/08/21 Unknown History Omeprazole 20 mg PO DAILY 10/08/21 10/08/21 Unknown History Patiromer Calcium Sorbitex 16.8 gram PO DAILY 10/08/21 10/08/21 Unknown History [Veltassa] QUEtiapine [SEROquel] 0.5 tab PO BID 10/08/21 10/08/21 Unknown History Ramelteon [Rozerem] 8 mg PO QHS 10/08/21 10/08/21 Unknown History Sennosides [Senna] 2 cap PO HS 10/08/21 10/08/21 Unknown History carvediloL 6.25 mg PO BID 10/08/21 10/08/21 Unknown History levoFLOXacin [Levaquin] 250 mg PO QDAY 10/08/21 10/08/21 Unknown History Active Medications: Generic Name Dose Route Start Last Admin Trade Name Freq PRN Reason Stop Dose Admin Acetaminophen 650 mg 10/07/21 01:34 10/12/21 21:13 Acetaminophen 325 Mg Tab PO 650 mg Q4H PRN Administration Pain MILD(1-3)/Fever >100.5/SWENSON Bisacodyl 10 mg 10/08/21 13:00 10/14/21 10:18 Bisacodyl 5 Mg Tab PO 10 mg QDAY EDUARDA Administration Dexamethasone 6 mg 10/15/21 10:00 Dexamethasone 4 Mg Tab PO 10/23/21 10:01 DAILY EDUARDA Dextrose 0 ml 10/07/21 11:29 10/11/21 18:13 Dextrose 10% *Hypoglycemia IV 50 ml PRN PRN Administration Hypoglycemia Haloperidol Lactate 2 mg 10/09/21 14:43 10/09/21 14:49 Haloperidol Lactate 5 Mg/1 Ml Inj IM 2 mg Q6H PRN Administration Agitation Dextrose/Sodium Chloride 1,000 mls @ 100 mls/hr 10/11/21 04:00 10/14/21 10:20 D5/0.45ns IV 100 mls/hr DIRECT EDUARDA Administration Insulin Human Lispro 0 unit 10/07/21 07:30 10/14/21 07:30 Insulin Lispro 100 Unit/Ml SUB-Q Not Given ACHS [facility] Protocol Magnesium Hydroxide 30 ml 10/07/21 01:34 Magnesium Hydroxide (Mom) Oral Liqd Udc PO Q4H PRN Constipation Morphine Sulfate 2 mg 10/07/21 01:34 10/13/21 15:00 Morphine 2 Mg/1 Ml Inj IV 2 mg Q4H PRN Administration Pain, Moderate (4-6) Morphine Sulfate 4 mg 10/07/21 01:34 10/13/21 22:16 Morphine 4 Mg/1 Ml Inj IV 4 mg Q4H PRN Administration Pain , Severe (7-10) Ondansetron HCl 4 mg 10/07/21 01:34 Ondansetron 4 Mg/2 Ml Inj IV Q8H PRN Nausea And Vomiting Pantoprazole Sodium 40 mg 10/10/21 16:30 10/14/21 10:20 Pantoprazole 40 Mg Tab PO 40 mg BIDAC EDUARDA Administration Polyethylene Glycol 17 gm 10/08/21 13:00 10/14/21 10:19 Polyethylene Glycol 3350 17 Gm Powder PO 17 gm BID EDUARDA Administration Sodium Bicarbonate 1,300 mg 10/11/21 13:00 10/14/21 10:18 Sodium Bicarbonate 650 Mg Tab PO 1,300 mg BID EDUARDA Administration Sodium Chloride 10 ml 10/07/21 10:00 10/14/21 10:20 Sodium Chloride 0.9% 10 Ml Flush Syringe IV 10 ml BID EDUARDA Administration Sodium Chloride 10 ml 10/07/21 15:18 10/13/21 22:02 Sodium Chloride 0.9% 50 Ml Ivpb IV 10 ml PRN PRN Administration FLUSH
--- NOTE | 2021-10-14 13:38 | Consultation ---
History of Present Illness - Reason for Consult Consult date: 10/14/21 - History of Present Illness 76-year-old man current resident of rehab center with past medical history diabetes, DVT, renal failure, several other medical comorbidities presented to hospital after being sent over for anemia. He otherwise denies any symptoms on presentation. He was eventually evaluated with a colonoscopy and EGD. Infectious disease consulted for COVID-19. Febrile one-time to 100.5 with a white count of 4.8. eGFR 37 elevated inflammatory markers no cultures available for review. Currently on dex amethasone. On room air. Imaging personally reviewed: Chest x-ray: Possible right basilar pneumonia V/Q scan no suspicious perfusion defect. Review of systems: Deferred to reduce to the risk of transmission of COVID-19 Past History Past Medical History: diabetes, DVT, hypertension, renal failure, other (Obstructive and reflux uropathy, anemia, GERD, sarcopenia, muscle weakness, right humerus fracture, history of COVID-19 with acute respiratory failure/h ypoxia) Past Surgical History: Other (Suprapubic catheter) Social history: no significant social history Family history: no significant family history Medications and Allergies Allergies Allergy/AdvReac Type Severity Reaction Status Date / Time No Known Allergies Allergy Verified 10/06/21 22:36 Home Medications Medication Instructions Recorded Confirmed Last Taken Type Acetaminophen [Tylenol] 650 mg PO Q8HR PRN 10/08/21 10/08/21 Unknown History Amlodipine Besylate [Norvasc] 5 mg PO DAILY 10/08/21 10/08/21 Unknown History Apixaban [Eliquis] 2.5 mg PO BID 10/08/21 10/08/21 Unknown History Ascorbic Acid [Vitamin C with Cassandra 500 mg PO BID 10/08/21 10/08/21 Unknown History Hips] Aspirin BABY CHEW TAB 81 mg PO DAILY 10/08/21 10/08/21 Unknown History AtorvaSTATin [Lipitor] 10 mg PO QHS 10/08/21 10/08/21 Unknown History Cyanocobalamin (Vitamin B-12) 1,000 mcg PO DAILY 10/08/21 10/08/21 Unknown History [Vitamin B-12] Cymbalta 60 mg PO DAILY 10/08/21 10/08/21 Unknown History Divalproex Sodium [Depakote 125 mg PO TID 10/08/21 10/08/21 Unknown History Sprinkle] Docusate Sodium [Colace] 100 mg PO BID PRN 10/08/21 10/08/21 Unknown History Folic Acid [Folvite] 1 mg PO QDAY 10/08/21 10/08/21 Unknown History Gabapentin 100 mg PO TID 10/08/21 10/08/21 Unknown History Lactobacillus Combination No.4 1 cap PO BID 10/08/21 10/08/21 Unknown History [Probiotic] Mirtazapine [Remeron] 15 mg PO HS 10/08/21 10/08/21 Unknown History Omeprazole 20 mg PO DAILY 10/08/21 10/08/21 Unknown History Patiromer Calcium Sorbitex 16.8 gram PO DAILY 10/08/21 10/08/21 Unknown History [Veltassa] QUEtiapine [SEROquel] 0.5 tab PO BID 10/08/21 10/08/21 Unknown History Ramelteon [Rozerem] 8 mg PO QHS 10/08/21 10/08/21 Unknown History Sennosides [Senna] 2 cap PO HS 10/08/21 10/08/21 Unknown History carvediloL 6.25 mg PO BID 10/08/21 10/08/21 Unknown History levoFLOXacin [Levaquin] 250 mg PO QDAY 10/08/21 10/08/21 Unknown History Active Meds: Active Medications Acetaminophen (Acetaminophen 325 Mg Tab) 650 mg PO Q4H PRN PRN Reason: Pain MILD(1-3)/Fever >100.5/SWENSON Last Admin: 10/12/21 21:13 Dose: 650 mg Bisacodyl (Bisacodyl 5 Mg Tab) 10 mg PO QDAY [facility] Last Admin: 10/14/21 10:18 Dose: 10 mg Dexamethasone (Dexamethasone 4 Mg Tab) 6 mg PO DAILY [facility] Stop: 10/23/21 10:01 Dextrose (Dextrose 10% *Hypoglycemia) 0 ml IV PRN PRN PRN Reason: Hypoglycemia Last Admin: 10/11/21 18:13 Dose: 50 ml Haloperidol Lactate (Haloperidol Lactate 5 Mg/1 Ml Inj) 2 mg IM Q6H PRN PRN Reason: Agitation Last Admin: 10/09/21 14:49 Dose: 2 mg Dextrose/Sodium Chloride (D5/0.45ns) 1,000 mls @ 100 mls/hr IV DIRECT [facility] Last Admin: 10/14/21 10:20 Dose: 100 mls/hr Insulin Human Lispro (Insulin Lispro 100 Unit/Ml) 0 unit SUB-Q ACHS [facility]; Protocol Last Admin: 10/14/21 11:30 Dose: Not Given Magnesium Hydroxide (Magnesium Hydroxide (Mom) Oral Liqd Udc) 30 ml PO Q4H PRN PRN Reason: Constipation Morphine Sulfate (Morphine 2 Mg/1 Ml Inj) 2 mg IV Q4H PRN PRN Reason: Pain, Moderate (4-6) Last Admin: 10/13/21 15:00 Dose: 2 mg Morphine Sulfate (Morphine 4 Mg/1 Ml Inj) 4 mg IV Q4H PRN PRN Reason: Pain , Severe (7-10) Last Admin: 10/13/21 22:16 Dose: 4 mg Ondansetron HCl (Ondansetron 4 Mg/2 Ml Inj) 4 mg IV Q8H PRN PRN Reason: Nausea And Vomiting Pantoprazole Sodium ([facility] 40 Mg Tab) [facility] Admin: 10/14/21 10:20 Dose: 40 mg Polyethylene Glycol (Polyethylene Glycol 3350 17 Gm Powder) 17 gm PO BID [facility] Last Admin: 10/14/21 10:19 Dose: 17 gm Sodium Bicarbonate (Sodium Bicarbonate 650 Mg Tab) 1,300 mg PO BID [facility] Last Admin: 10/14/21 10:18 Dose: 1,300 mg Sodium Chloride (Sodium Chloride 0.9% 10 Ml Flush Syringe) 10 ml IV BID [facility] Last Admin: 10/14/21 10:20 Dose: 10 ml Sodium Chloride (Sodium Chloride 0.9% 50 Ml Ivpb) 10 ml IV PRN PRN PRN Reason: FLUSH Last Admin: 10/13/21 22:02 Dose: 10 ml Physical Examination - Physical Exam Narrative exam: Physical exam deferred to reduce risk of transmission of COVID-19. Please refer to primary team's note. - Constitutional Vitals: Vital Signs Temp Pulse Resp BP Pulse Ox 97.5 F L 78 16 132/71 98 10/14/21 04:57 10/14/21 04:57 10/14/21 04:57 10/14/21 04:57 10/14/21 04:57 Temperature -Last 24 Hours Temperature 97.5 F Temperature 98.6 F Results - Labs CBC & Chem 7: 10/14/21 09:23 10/14/21 09:23 Labs: Abnormal lab results 10/13/21 10/14/21 10/14/21 Range/Units 16:29 09:23 09:23 Hgb 8.7 L (11.8-15.2) gm/dl Hct 26.2 L (35.5-45.6) % Sodium 132 L (137-145) mmol/L Potassium 5.1 H (3.6-5.0) mmol/L Chloride 97.5 L (98-107) mmol/L BUN 50 H (9-20) mg/dL Creatinine 2.1 H (0.8-1.3) mg/dL Glucose 124 H (75-100) mg/dL POC Glucose 119 H (70-105) mg/dL Albumin 2.5 L (3.9-5) g/dL 10/14/21 Range/Units 12:12 Hgb (11.8-15.2) gm/dl Hct (35.5-45.6) % Sodium (137-145) mmol/L Potassium (3.6-5.0) mmol/L Chloride (98-107) mmol/L BUN (9-20) mg/dL Creatinine (0.8-1.3) mg/dL Glucose (75-100) mg/dL POC Glucose 118 H (70-105) mg/dL Albumin (3.9-5) g/dL Assessment and Plan Cultures: COVID PCR positive. A/P: 76-year-old man [facility] with past medical history diabetes, DVT, renal failure, several other medical comorbidities #COVID-19 infection: On room air. CXR with right basilar infiltrate. #LETY on CKD: renally dose antibiotics #GI bleed Recommendations: -Dexamethasone 6 mg IV/PO daily for 10 days -otherwise no acute COVID treatment required as on room air. -Anticoagulation per hospital protocol -Proning as able Thank you for the consult, we will continue to follow. MD Heidy [facility] O: [phone] F: [phone]
--- NOTE | 2021-10-14 14:54 | Progress Note ---
Assessment and Plan Assessment and plan: --COVID-19 test positive 10/10/2021 Current Visit: Yes Status: Acute Isolation precautions droplet and contact Inflammatory markers, home O2 evaluation Prone positioning if needed Steroids 10 days, no remdesivir due to acute kidney injury --Elevated D-dimers more than 10,000 Current Visit: Yes Status: Acute VQ scan to rule out PE Lower extremity venous Doppler to rule out DVT Oxygen assessment, supplemental oxygen if needed --History of GI bleed Current Visit: Yes Status: Acute No new episodes of bleeding Follow EGD and colonoscopy findings and recommendations IV Protonix, n.p.o. from midnight Patient s/p EGD, colonoscopy 10/10/2021 EGD findings; small hiatal hernia, normal stomach exam biopsies obtain ed Normal duodenum exam biopsies obtained 10/10/2021 colonoscopy; colon polyps removed, pandiverticulosis, internal and external hemorrhoids nonbleeding No clear source of anemia identified except for possible prior bleeding from hemorrhoids GI recommend okay to resume anticoagulation tomorrow Discharge home tomorrow if stable patient is hemodynamically and clinically stable at discharge --Anemia Current Visit: Yes Status: Acute Hb 6.7 on admission, received 2 units PRBC transfusion Improved to 9.4, no external evidence of bleeding GI evaluation noted and appreciated Iron profile, low iron levels --Acute kidney injury Current Visit: Yes Status: Acute Possibly secondary to the GI bleed. Vasomotor nephropathy , closely monitor renal function Avoid nephrotoxins --Severe protein calorie malnutrition; Current Visit: Yes Status: Acute Hypoalbuminemia, nutrition supplements, nutrition consult, Closely monitor --DVT prophylaxis Current Visit: Yes Status: Acute Patient placed on sequential compression device. --Full code status Current Visit: Yes Status: Acute Patient is full code. We will closely monitor the patient and adjust management as needed Plan of care reviewed with the patient and his nurse Brief history and daily hospital course: 76-year-old male patient was admitted with severe anemia and GI bleeding received blood transfusion underwent EGD colonoscopy GI cleared for discharge back to correction, patient had predischarge Covid test which was positive, patient had very high D-dimers of more than 10,000, VQ scan, lower extremity venous Dopplers requested Unable to give empiric therapeutic Lovenox due to history of severe GI bleeding and anemia. Follow VQ scan, venous Doppler, follow ID evaluation 10/09; GI rescheduled endoscopy for tomorrow Clear liquids today and n.p.o. from midnight 10/10; patient is having colonoscopy and EGD today Follow-up procedures follow findings and recommendations per GI, 10/11: COVID-19 positive, inflammatory markers, Covid management 10/12: Inflammatory markers, O2 evaluation 10/13: D-dimers more than 10,000, check VQ scan, venous Doppler to rule out PE and DVT 10/14: Patient seen and examined, No PE on VQ scan. Patient is not on any oxygen at this time. Awaiting placement. 4 notes with COVID which is incidental finding on testing for discharge. Hemoglobin remained stable Disposition; follow VQ scan, lower extremity venous Doppler, follow ID e valuation recommendation Discharge when medically stable History Interval history: Patient seen and examined, no acute distress. Hospitalist Physical - Physical exam Narrative exam: General appearance: Present: no acute distress, well-nourished - EENT Eyes: Present: PERRL, EOM intact - Neck Neck: Present: supple, normal ROM - Respiratory Respiratory effort: normal Respiratory: bilateral: diminished, negative: rales, rhonchi - Cardiovascular Rhythm: regular Heart Sounds: Present: S1 & S2 - Extremities Extremities: abnormal (Left foot in dressing) Extremity abnormal: edema - Abdominal General gastrointestinal: soft, non-tender, non-distended, normal bowel sounds - Integumentary Integumentary: Present: clear, warm - Psychiatric Psychiatric: appropriate mood/affect, cooperative - Neurologic Neurologic: moves all extremities - Constitutional Vitals: Temp Pulse Resp BP Pulse Ox 97.5 F L 78 16 132/71 98 10/14/21 04:57 10/14/21 04:57 10/14/21 04:57 10/14/21 04:57 10/14/21 14:08 General appearance: Present: no acute distress, cachectic, disheveled, other (Mo derate Pallor) Results - Labs CBC & Chem 7: 10/14/21 09:23 10/14/21 09:23 Labs: Laboratory Last Values WBC 4.8 K/mm3 (4.5-11.0) 10/08/21 04:17 RBC 3.12 M/mm3 (3.65-5.03) L 10/08/21 04:17 Hgb 8.7 gm/dl (11.8-15.2) L 10/14/21 09:23 Hct 26.2 % (35.5-45.6) L 10/14/21 09:23 MCV 85 fl (84-94) 10/08/21 04:17 MCH 28 pg (28-32) 10/08/21 04:17 MCHC 33 % (32-34) 10/08/21 04:17 RDW 18.1 % (13.2-15.2) H 10/08/21 04:17 Plt Count 226 K/mm3 (140-440) 10/08/21 04:17 Lymph % (Auto) 18.1 % (13.4-35.0) 10/08/21 04:17 [place] % (Auto) 10.3 % (0.0-7.3) H 10/08/21 04:17 Eos % (Auto) 1.2 % (0.0-4.3) 10/08/21 04:17 Baso % (Auto) 0.4 % (0.0-1.8) 10/08/21 04:17 Lymph # (Auto) 0.9 K/mm3 (1.2-5.4) L 10/08/21 04:17 [place] # (Auto) 0.5 K/mm3 (0.0-0.8) 10/08/21 04:17 Eos # (Auto) 0.1 K/mm3 (0.0-0.4) 10/08/21 04:17 Baso # (Auto) 0.0 K/mm3 (0.0-0.1) 10/08/21 04:17 Seg Neutrophils % 70.0 % (40.0-70.0) 10/08/21 04:17 Seg Neutrophils # 3.4 K/mm3 (1.8-7.7) 10/08/21 04:17 PT 17.6 Sec. (12.2-14.9) H 10/06/21 23:13 INR 1.31 (0.87-1.13) H 10/06/21 23:13 APTT 50.9 Sec. (24.2-36.6) H 10/06/21 23:13 D-Dimer > 61362 ng/mlDDU (0-234) H 10/12/21 19:20 Sodium 132 mmol/L (137-145) L 10/14/21 09:23 Potassium 5.1 mmol/L (3.6-5.0) H 10/14/21 09:23 Chloride 97.5 mmol/L (98-107) L 10/14/21 09:23 Carbon Dioxide 22 mmol/L (22-30) 10/14/21 09:23 Anion Gap 18 mmol/L 10/14/21 09:23 BUN 50 mg/dL (9-20) H 10/14/21 09:23 Creatinine 2.1 mg/dL (0.8-1.3) H 10/14/21 09:23 Estimated GFR 37 ml/min 10/14/21 09:23 BUN/Creatinine Ratio 24 % 10/14/21 09:23 Glucose 124 mg/dL (75-100) H 10/14/21 09:23 POC Glucose 118 mg/dL (70-105) H 10/14/21 12:12 Calcium 8.9 mg/dL (8.4-10.2) 10/14/21 09:23 Magnesium 1.90 mg/dL (1.7-2.3) 10/14/21 09:23 Iron 30 ug/dL (49-181) L 10/07/21 16:30 TIBC 107 mcg/dL (250-450) L 10/07/21 16:30 Ferritin 1684.0 ng/mL (30.0-300.0) H 10/12/21 19:20 Total Bilirubin 0.40 mg/dL (0.1-1.2) 10/14/21 09:23 AST 19 units/L (5-40) 10/14/21 09:23 ALT 12 units/L (7-56) 10/14/21 09:23 Alkaline Phosphatase 87 units/L (35-129) 10/14/21 09:23 Lactate Dehydrogenase 290 units/L (91-180) H 10/12/21 19:20 C-Reactive Protein 5.90 mg/dL (0.00-1.30) H 10/12/21 19:20 Total Protein 7.5 g/dL (6.3-8.2) 10/14/21 09:23 Albumin 2.5 g/dL (3.9-5) L 10/14/21 09:23 Albumin/Globulin Ratio 0.5 % 10/14/21 09:23 Urine Creatinine 29.0 mg/dL (0.1-20.0) H 10/08/21 01:37 Urine Sodium 64 mmol/L 10/08/21 01:37 Urine Total Protein 42 mg/dL (5-11.8) H 10/08/21 01:37 Coronavirus (PCR) Positive (Negative) A 10/09/21 08:00 Blood Type AB POSITIVE 10/06/21 23:13 Antibody Screen Negative 10/06/21 23:13 Crossmatch See Detail 10/06/21 23:13 Still/IV: Voiding Method Suprapubic catheter Active Medications - Current Medications Current Medications: Generic Name Dose Route Start Last Admin Trade Name Freq PRN Reason Stop Dose Admin Acetaminophen 650 mg 10/07/21 01:34 10/12/21 21:13 Acetaminophen 325 Mg Tab PO 650 mg Q4H PRN Administration Pain MILD(1-3)/Fever >100.5/SWENSON Bisacodyl 10 mg 10/08/21 13:00 10/14/21 10:18 Bisacodyl 5 Mg Tab PO 10 mg QDAY EDUARDA Administration Dexamethasone 6 mg 10/15/21 10:00 Dexamethasone 4 Mg Tab PO 10/23/21 10:01 DAILY EDUARDA Dextrose 0 ml 10/07/21 11:29 10/11/21 18:13 Dextrose 10% *Hypoglycemia IV 50 ml PRN PRN Administration Hypoglycemia Haloperidol Lactate 2 mg 10/09/21 14:43 10/09/21 14:49 Haloperidol Lactate 5 Mg/1 Ml Inj IM 2 mg Q6H PRN Administration Agitation Dextrose/Sodium Chloride 1,000 mls @ 100 mls/hr 10/11/21 04:00 10/14/21 10:20 D5/0.45ns IV 100 mls/hr DIRECT EDUARDA Administration Insulin Human Lispro 0 unit 10/07/21 07:30 10/14/21 11:30 Insulin Lispro 100 Unit/Ml SUB-Q Not Given ACHS EDUARDA Protocol Magnesium Hydroxide 30 ml 10/07/21 01:34 Magnesium Hydroxide (Mom) Oral Liqd Udc PO Q4H PRN Constipation Morphine Sulfate 2 mg 10/07/21 01:34 10/13/21 15:00 Morphine 2 Mg/1 Ml Inj IV 2 mg Q4H PRN Administration Pain, Moderate (4-6) Morphine Sulfate 4 mg 10/07/21 01:34 10/13/21 22:16 Morphine 4 Mg/1 Ml Inj IV 4 mg Q4H PRN Administration Pain , Severe (7-10) Ondansetron HCl 4 mg 10/07/21 01:34 Ondansetron 4 Mg/2 Ml Inj IV Q8H PRN Nausea And Vomiting Pantoprazole Sodium 40 mg 10/10/21 16:30 10/14/21 10:20 Pantoprazole 40 Mg Tab PO 40 mg BIDAC EDUARDA Administration Polyethylene Glycol 17 gm 10/08/21 13:00 10/14/21 10:19 Polyethylene Glycol 3350 17 Gm Powder PO 17 gm BID EDUARDA Administration Sodium Bicarbonate 1,300 mg 10/11/21 13:00 10/14/21 10:18 Sodium Bicarbonate 650 Mg Tab PO 1,300 mg BID EDUARDA Administration Sodium Chloride 10 ml 10/07/21 10:00 10/14/21 10:20 Sodium Chloride 0.9% 10 Ml Flush Syringe IV 10 ml BID EDUARDA Administration Sodium Chloride 10 ml 10/07/21 15:18 10/13/21 22:02 Sodium Chloride 0.9% 50 Ml Ivpb IV 10 ml PRN PRN Administration FLUSH Nutrition/Malnutrition Assess - Dietary Evaluation Nutrition/Malnutrition Findings: Nutrition Notes Start: 10/07/21 10:51 Freq: Status: Active Protocol: Document 10/11/21 10:50 JOE (Rec: 10/11/21 11:18 JOE [id number]) Nutrition Notes Initial or Follow up Reassessment Current Diagnosis Decubitus(Pressure Ulcer), Diabetes,Hypertension Other Pertinent Diagnosis LETY, Anemia, GI bleed. Hx: DVT , GERD, Sarcopenia & COVID-19. Current Diet Renal modified -chopped meats- Diet + D Supplements (since L 10/11). Labs/Tests 10/11: Na 135, CO2 19, BUN 34, Crea 1.8, Glu 107, Mg 1.6. Pertinent Medications 10/11: D5/0.45ns 1000 ml @ 100 ml/hr, others nutritionally unremarkable. Height 5 ft 7 in Weight 66.5 kg [place] Body Weight (kg) 67.27 BMI 22.9 Weight change and time frame No body weight change reported in 2 days. Weight Status Appropriate Subjective/Other Information RD consult for dietary and ONS advancement. Pt's PO intake of meals is Negligible (0%), according to ADL notes. Pt underwent colonoscopy and EGD on 10/10. Pt has difficulty chewing, according to Physical Assessment History notes. Pt now on Regular diet, I will change it to Renal modified - chopped meats- diet. I will resume Dietary supplementation to support wound healing processes and possible poor or insuficient PO intake of meals. Percent of energy/protein needs met: Prescribed Renal Diet provides for energy/protein needs (2, 072 Kcal/77 g) during LOS; additionally, Dietary Supplements will compensate for possible poor or insufficient PO intake of meals, and will support wound healing processes with 640 Kcal and 95 g of protein. Burn Absent Trauma Absent GI Symptoms Other Difficulty In Chewing Food Allergy No Skin Integrity/Comment Decubitus sacral pressure ulcer. Current % PO Negligible Minimum of two criteria No #2 Nutrition Diagnosis Biting/Chewing (masticatory) difficulty Etiology Missing teeth. As Evidenced by Signs and Symptoms Pt has difficulty chewing, according to Physical Assessment History notes. #1 Nutrition Diagnosis Increased nutrient needs ( specify in comment below), Inadequate protein-energy intake Diagnosis Progress(for reassessment Continues documentation) Is patient on ventilator? No Is Patient Ambulatory and/or Out of Bed Yes REE-([facility]-ambulatory/OOB) [ 1766.219 [id number]] Calculation Used for Recommendations [facility] Additional Notes Protein: 1.25-1.5 g/Kg; 84-101 g/day. Fluids: 1 ml/Kcal, or as per MD. Nutrition Intervention Change Diet Order: Change to Renal modified Diet -chopped meats-. Add Supplement/Snack (indicate name/kcal 8 fl oz Ensure Max Protein; /protein ) TID. 28.8 g pkt Raji; BID. Provides kCal: 640 Provides Protein (gm) 95 Goal #1 Support, through dietary supplementation, wound healing processes during LOS. Goal #2 Compensate, through dietary supplementation, for possible poor or insufficient PO intake of meals during LOS. Follow-Up By: 10/18/21 Additional Comments Continue monitoring food tolerance, %PO intake of meals , and BM.
[2021-10-14] MEDS: SODIUM CHLORIDE 0.9% 50 ML IVPB IV PRN (22:16)
[2021-10-15] MEDS: INSULIN LISPRO 100 UNIT/ML SUB-Q SCH ×4 (07:30→23:13)
[2021-10-15 08:13] LABS: Calcium 8.7 mg/dL (8.4-10.2)
[2021-10-15] MEDS: SODIUM BICARBONATE 650 MG TAB PO SCH ×2 (09:34→21:48)
[2021-10-15] MEDS: DEXAMETHASONE 4 MG TAB PO SCH (09:34)
[2021-10-15] MEDS: POLYETHYLENE GLYCOL 3350 17 GM POWDER PO SCH ×2 (09:34→21:48)
[2021-10-15] MEDS: PANTOPRAZOLE 40 MG TAB PO SCH ×2 (09:34→17:56)
--- NOTE | 2021-10-15 10:51 | Progress Note ---
Assessment and Plan - Patient Problems (1) Acute kidney injury Current Visit: Yes Status: Acute Plan to address problem: patient with LETY superimposed on CKD as evidenced by increased echogenicity of b/l kidneys on renal US. Renal function stable. cont current supportive care (2) Anemia Current Visit: Yes Status: Acute Plan to address problem: Transfuse to maintain hemoglobin > 7. 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 I reviewed multidisciplinary notes Objective - Exam Narrative Exam: Patient was not examined at the bedside today due to the COVID-19 status. - Vital Signs Vital signs: Vital Signs - 12hr 10/15/21 10/15/21 02:00 04:35 Temperature 98.1 F Pulse Rate 84 Respiratory 20 Rate Blood Pressure 139/75 O2 Sat by Pulse 97 100 Oximetry - Lab 10/14/21 09:23 10/15/21 07:45 Most recent lab results Calcium 8.7 mg/dL (8.4-10.2) 10/15/21 07:45 Magnesium 1.90 mg/dL (1.7-2.3) 10/14/21 09:23 Urine Creatinine 29.0 mg/dL (0.1-20.0) H 10/08/21 01:37 Urine Sodium 64 mmol/L 10/08/21 01:37 Urine Total Protein 42 mg/dL (5-11.8) H 10/08/21 01:37 Medications & Allergies - Medications Allergies/Adverse Reactions: Allergies No Known Allergies Allergy (Verified 10/06/21 22:36) Home Medications: Home Medications Medication Instructions Recorded Confirmed Last Taken Type Acetaminophen [Tylenol] 650 mg PO Q8HR PRN 10/08/21 10/08/21 Unknown History Amlodipine Besylate [Norvasc] 5 mg PO DAILY 10/08/21 10/08/21 Unknown History Apixaban [Eliquis] 2.5 mg PO BID 10/08/21 10/08/21 Unknown History Ascorbic Acid [Vitamin C with Cassandra 500 mg PO BID 10/08/21 10/08/21 Unknown History Hips] Aspirin BABY CHEW TAB 81 mg PO DAILY 10/08/21 10/08/21 Unknown History AtorvaSTATin [Lipitor] 10 mg PO QHS 10/08/21 10/08/21 Unknown History Cyanocobalamin (Vitamin B-12) 1,000 mcg PO DAILY 10/08/21 10/08/21 Unknown History [Vitamin B-12] Cymbalta 60 mg PO DAILY 10/08/21 10/08/21 Unknown History Divalproex Sodium [Depakote 125 mg PO TID 10/08/21 10/08/21 Unknown History Sprinkle] Docusate Sodium [Colace] 100 mg PO BID PRN 10/08/21 10/08/21 Unknown History Folic Acid [Folvite] 1 mg PO QDAY 10/08/21 10/08/21 Unknown History Gabapentin 100 mg PO TID 10/08/21 10/08/21 Unknown History Lactobacillus Combination No.4 1 cap PO BID 10/08/21 10/08/21 Unknown History [Probiotic] Mirtazapine [Remeron] 15 mg PO HS 10/08/21 10/08/21 Unknown History Omeprazole 20 mg PO DAILY 10/08/21 10/08/21 Unknown History Patiromer Calcium Sorbitex 16.8 gram PO DAILY 10/08/21 10/08/21 Unknown History [Veltassa] QUEtiapine [SEROquel] 0.5 tab PO BID 10/08/21 10/08/21 Unknown History Ramelteon [Rozerem] 8 mg PO QHS 10/08/21 10/08/21 Unknown History Sennosides [Senna] 2 cap PO HS 10/08/21 10/08/21 Unknown History carvediloL 6.25 mg PO BID 10/08/21 10/08/21 Unknown History levoFLOXacin [Levaquin] 250 mg PO QDAY 10/08/21 10/08/21 Unknown History Active Medications: Generic Name Dose Route Start Last Admin Trade Name Freq PRN Reason Stop Dose Admin Acetaminophen 650 mg 10/07/21 01:34 10/12/21 21:13 Acetaminophen 325 Mg Tab PO 650 mg Q4H PRN Administration Pain MILD(1-3)/Fever >100.5/SWENSON Bisacodyl 10 mg 10/08/21 13:00 10/14/21 10:18 Bisacodyl 5 Mg Tab PO 10 mg QDAY EDUARDA Administration Dexamethasone 6 mg 10/15/21 10:00 10/15/21 09:34 Dexamethasone 4 Mg Tab PO 10/23/21 10:01 6 mg DAILY EDUARDA Administration Dextrose 0 ml 10/07/21 11:29 10/11/21 18:13 Dextrose 10% *Hypoglycemia IV 50 ml PRN PRN Administration Hypoglycemia Haloperidol Lactate 2 mg 10/09/21 14:43 10/09/21 14:49 Haloperidol Lactate 5 Mg/1 Ml Inj IM 2 mg Q6H PRN Administration Agitation Dextrose/Sodium Chloride 1,000 mls @ 100 mls/hr 10/11/21 04:00 10/14/21 19:37 D5/0.45ns IV 100 mls/hr DIRECT EDUARDA Administration Insulin Human Lispro 0 unit 10/07/21 07:30 10/15/21 07:30 Insulin Lispro 100 Unit/Ml SUB-Q Not Given ACHS [facility] Protocol Magnesium Hydroxide 30 ml 10/07/21 01:34 Magnesium Hydroxide (Mom) Oral Liqd Udc PO Q4H PRN Constipation Morphine Sulfate 2 mg 10/07/21 01:34 10/13/21 15:00 Morphine 2 Mg/1 Ml Inj IV 2 mg Q4H PRN Administration Pain, Moderate (4-6) Morphine Sulfate 4 mg 10/07/21 01:34 10/13/21 22:16 Morphine 4 Mg/1 Ml Inj IV 4 mg Q4H PRN Administration Pain , Severe (7-10) Ondansetron HCl 4 mg 10/07/21 01:34 Ondansetron 4 Mg/2 Ml Inj IV Q8H PRN Nausea And Vomiting Pantoprazole Sodium 40 mg 10/10/21 16:30 10/15/21 09:34 Pantoprazole 40 Mg Tab PO 40 mg BIDAC EDUARDA Administration Polyethylene Glycol 17 gm 10/08/21 13:00 10/15/21 09:34 Polyethylene Glycol 3350 17 Gm Powder PO 17 gm BID EDUARDA Administration Sodium Bicarbonate 1,300 mg 10/11/21 13:00 10/15/21 09:34 Sodium Bicarbonate 650 Mg Tab PO 1,300 mg BID EDUARDA Administration Sodium Chloride 10 ml 10/07/21 10:00 10/14/21 22:16 Sodium Chloride 0.9% 10 Ml Flush Syringe IV Not Given BID EDUARDA Sodium Chloride 10 ml 10/07/21 15:18 10/14/21 22:16 Sodium Chloride 0.9% 50 Ml Ivpb IV 10 ml PRN PRN Administration FLUSH
--- NOTE | 2021-10-15 12:33 | Discharge Summary ---
Providers - Providers Date of Admission: 10/08/21 17:26 Date of discharge: 10/15/21 Attending physician: MAYURI SCHMID 10/07/21 01:02 Consult to Physician [CONS] Urgent Comment: Consulting Provider: GIRMA ROJO Physician Instructions: Reason For Exam: guaic + brown stool 10/07/21 01:40 Consult to Physician [CONS] Routine Comment: Consulting Provider: KATYA SMITH Physician Instructions: Reason For Exam: RENAL INSUFFICIENCY 10/08/21 13:40 Occupational Therapy Evaluate and Treat [CONS] Stat Comment: Reason For Exam: eval and treat Physical Therapy Evaluation and Treat [CONS] Stat Comment: Reason For Exam: eval and treat 10/08/21 17:23 Consult to Dietitian/Nutrition [CONS] Routine Physician Instructions: Reason For Exam: Reason for Consult: Pt needs oral supplement 10/14/21 10:00 Consult to Physician [CONS] Routine Comment: Consulting Provider: MONI BRANDON Physician Instructions: Reason For Exam: COVID-19 Primary care physician: JOSE DURAN MD Hospitalization Condition: Stable Disposition: 30 STILL A PATIENT Exam - Constitutional Vitals: Temp Pulse Resp BP Pulse Ox 98.1 F 84 20 139/75 100 10/15/21 04:35 10/15/21 04:35 10/15/21 04:35 10/15/21 04:35 10/15/21 04:35 Plan Follow up with: PRIMARY CAREMD [Primary Care Provider] - 3-5 Days
--- NOTE | 2021-10-15 12:57 | Discharge Summary ---
Providers - Providers Date of Admission: 10/08/21 17:26 Date of discharge: 10/16/21 Attending physician: MAYURI SCHMID 10/07/21 01:02 Consult to Physician [CONS] Urgent Comment: Consulting Provider: GIRMA ROJO Physician Instructions: Reason For Exam: guaic + brown stool 10/07/21 01:40 Consult to Physician [CONS] Routine Comment: Consulting Provider: KATYA SMITH Physician Instructions: Reason For Exam: RENAL INSUFFICIENCY 10/08/21 13:40 Occupational Therapy Evaluate and Treat [CONS] Stat Comment: Reason For Exam: eval and treat Physical Therapy Evaluation and Treat [CONS] Stat Comment: Reason For Exam: eval and treat 10/08/21 17:23 Consult to Dietitian/Nutrition [CONS] Routine Physician Instructions: Reason For Exam: Reason for Consult: Pt needs oral supplement 10/14/21 10:00 Consult to Physician [CONS] Routine Comment: Consulting Provider: MONI BRANDON Physician Instructions: Reason For Exam: COVID-19 Primary care physician: FULL TIME BABYSITTER Hospitalization Condition: Stable Disposition: 51 HOSPICE/MEDICAL FACILITY Time spent for discharge: 34 minutes Exam - Constitutional Vitals: Temp Pulse Resp BP Pulse Ox 98.1 F 84 20 139/75 100 10/15/21 04:35 10/15/21 04:35 10/15/21 04:35 10/15/21 04:35 10/15/21 04:35 Plan Activity: fall precautions Weight Bearing Status: Non-Weight Bearing Diet: advance as tolerated Follow up with: PRIMARY CARE, [Primary Care Provider] - 3-5 Days Prescriptions: dexAMETHasone [Decadron] 6 mg PO DAILY #7 tablet Pantoprazole [Protonix TAB] 40 mg PO BIDAC #60 tablet Sodium Bicarbonate 1,300 mg PO BID #90 tablet
--- NOTE | 2021-10-15 14:02 | Progress Note ---
Assessment and Plan Cultures: COVID PCR positive. A/P: 76-year-old man current resident of rehab center with past medical history diabetes, DVT, renal failure, several other medical comorbidities #COVID-19 infection: On room air. CXR with right basilar infiltrate. #LETY on CKD: renally dose antibiotics #GI bleed Recommendations: -Dexamethasone 6 mg IV/PO daily for 10 days -otherwise no acute COVID treatment required as on room air. -Anticoagulation per hospital protocol -Proning as able Thank you for the consult, we will continue to follow. Ema Garvin MD [facility] O: [phone] F: [phone] Subjective Date of service: 10/15/21 Principal diagnosis: LETY Interval history: Afebrile, no acute changes. Objective - Exam Narrative Exam: Physical exam deferred to reduce risk of transmission of COVID-19. Please refer to primary team's note. - Constitutional Vitals: Vital Signs Temp Pulse Resp BP Pulse Ox 98.1 F 84 20 139/75 100 10/15/21 04:35 10/15/21 04:35 10/15/21 04:35 10/15/21 04:35 10/15/21 04:35 Temperature -Last 24 Hours Temperature 98.1 F Temperature 97.8 F Temperature 97.7 F - Labs CBC & Chem 7: 10/14/21 09:23 10/15/21 07:45 Labs: Abnormal lab results 10/14/21 10/14/21 10/15/21 Range/Units 17:10 22:49 07:45 Sodium 130 L (137-145) mmol/L Potassium 5.2 H (3.6-5.0) mmol/L Chloride 96.4 L (98-107) mmol/L BUN 59 H (9-20) mg/dL Creatinine 2.1 H (0.8-1.3) mg/dL Glucose 117 H (75-100) mg/dL POC Glucose 213 H 114 H (70-105) mg/dL SARS-CoV-2 (PCR) (Negative) 10/15/21 10/15/21 10/15/21 Range/Units 07:53 11:45 12:05 Sodium (137-145) mmol/L Potassium (3.6-5.0) mmol/L Chloride (98-107) mmol/L BUN (9-20) mg/dL Creatinine (0.8-1.3) mg/dL Glucose (75-100) mg/dL POC Glucose 111 H 153 H (70-105) mg/dL SARS-CoV-2 (PCR) Positive A (Negative)
[2021-10-15] MEDS: SODIUM CHLORIDE 0.9% 50 ML IVPB IV PRN (21:48)
[2021-10-15] MEDS: D5W/0.45% NACL 1,000 ML IV SCH (23:15)
[2021-10-16] MEDS: SODIUM BICARBONATE 650 MG TAB PO SCH (10:31)
[2021-10-16] MEDS: DEXAMETHASONE 4 MG TAB PO SCH (10:32)
[2021-10-16] MEDS: POLYETHYLENE GLYCOL 3350 17 GM POWDER PO SCH (10:33)
[2021-10-16] MEDS: PANTOPRAZOLE 40 MG TAB PO SCH (10:46)
[2021-10-16] MEDS: INSULIN LISPRO 100 UNIT/ML SUB-Q SCH (10:46)
[2021-10-16 14:12] VITALS: BP 135/71
--- NOTE | 2021-10-16 16:11 | Progress Note ---
Assessment and Plan --COVID-19 test positive 10/10/2021 Current Visit: Yes Status: Acute Isolation precautions droplet and contact Inflammatory markers, home O2 evaluation Prone positioning if needed Steroids 10 days, no remdesivir due to acute kidney injury --Elevated D-dimers more than 10,000 Current Visit: Yes Status: Acute VQ scan to rule out PE Lower extremity venous Doppler to rule out DVT Oxygen assessment, supplemental oxygen if needed --History of GI bleed Current Visit: Yes Status: Acute No new episodes of bleeding Follow EGD and colonoscopy findings and recommendations IV Protonix, n.p.o. from midnight Patient s/p EGD, colonoscopy 10/10/2021 EGD findings; small hiatal hernia, normal stomach exam biopsies obtained Normal duodenum exam biopsies obtained 10/10/2021 colonoscopy; colon polyps removed, pandiverticulosis, internal and ex ternal hemorrhoids nonbleeding No clear source of anemia identified except for possible prior bleeding from hemorrhoids GI recommend okay to resume anticoagulation tomorrow Discharge home tomorrow if stable patient is hemodynamically and clinically stable at discharge --Anemia Current Visit: Yes Status: Acute Hb 6.7 on admission, received 2 units PRBC transfusion Improved to 9.4, no external evidence of bleeding GI evaluation noted and appreciated Iron profile, low iron levels --Acute kidney injury Current Visit: Yes Status: Acute Possibly secondary to the GI bleed. Vasomotor nephropathy , closely monitor renal function Avoid nephrotoxins --Severe protein calorie malnutrition; Current Visit: Yes Status: Acute Hypoalbuminemia, nutrition supplements, nutrition consult, Closely monitor --DVT prophylaxis Current Visit: Yes Status: Acute Patient placed on sequential compression device. --Full code status Current Visit: Yes Status: Acute Patient is full code. We will closely monitor the patient and adjust management as needed Plan of care reviewed with the patient and his nurse Brief history and daily hospital course: 76-year-old male patient was admitted with severe anemia and GI bleeding received blood transfusion underwent EGD colonoscopy GI cleared for discharge back to long term, patient had predischarge Covid test which was positive, patient had very high D-dimers of more than 10,000, VQ scan, lower extremity venous Dopplers requested Unable to give empiric therapeutic Lovenox due to history of severe GI bleeding and anemia. Follow VQ scan, venous Doppler, follow ID evaluation 10/09; GI rescheduled endoscopy for tomorrow Clear liquids today and n.p.o. from midnight 10/10; patient is having colonoscopy and EGD today Follow-up procedures follow findings and recommendations per GI, 10/11: COVID-19 positive, inflammatory markers, Covid management 10/12: Inflammatory markers, O2 evaluation 10/13: D-dimers more than 10,000, check VQ scan, venous Doppler to rule out PE and DVT 10/14: Patient seen and examined, No PE on VQ scan. Patient is not on any oxygen at this time. Awaiting placement. 4 notes with COVID which is incidental finding on testing for discharge. Hemoglobin remained stable Disposition; follow VQ scan, lower extremity venous Doppler, follow ID evaluation recommendation Discharge when medically stable History Interval history: Patient seen and examined, no acute distress. Hospitalist Physical - Physical exam Narrative exam: General appearance: Present: no acute distress, well-nourished - EENT Eyes: Present: PERRL, EOM intact - Neck Neck: Present: supple, normal ROM - Respiratory Respiratory effort: normal Respiratory: bilateral: diminished, negative: rales, rhonchi - Cardiovascular Rhythm: regular Heart Sounds: Present: S1 & S2 - Extremities Extremities: abnormal (Left foot in dressing) Extremity abnormal: edema - Abdominal General gastrointestinal: soft, non-tender, non-distended, normal bowel sounds - Integumentary Integumentary: Present: clear, warm - Psychiatric Psychiatric: appropriate mood/affect, cooperative - Neurologic Neurologic: moves all extremities Subjective Date of service: 10/15/21 Principal diagnosis: LETY Objective - Constitutional Vitals: Vital Signs - 12hr 10/16/21 10/16/21 10/16/21 05:12 12:44 14:07 Temperature 98.6 F 97.2 F L Pulse Rate 92 H 87 Respiratory 20 20 Rate Blood Pressure 144/79 135/71 O2 Sat by Pulse 100 100 99 Oximetry - Labs CBC & Chem 7: 10/14/21 09:23 10/15/21 07:45 Labs: Abnormal lab results 10/15/21 10/15/21 10/16/21 Range/Units 17:03 22:45 12:42 POC Glucose 206 H 179 H 151 H (70-105) mg/dL
--- NOTE | 2021-10-16 16:20 | Progress Note ---
Assessment and Plan Cultures: COVID PCR positive. A/P: 76-year-old man current resident of rehab center with past medical history diabetes, DVT, renal failure, several other medical comorbidities #COVID-19 infection: On room air. CXR with right basilar infiltrate. #LETY on CKD: renally dose antibiotics #GI bleed Recommendations: -Dexamethasone 6 mg IV/PO daily for 10 days -otherwise no acute COVID treatment required as on room air. -Anticoagulation per hospital protocol -Proning as able Thank you for the consult, we will continue to follow. Ema Garvin MD [facility], [place], [facility] O: [phone] F: [phone] Subjective Date of service: 10/16/21 Principal diagnosis: LETY Interval history: Afebrile, no acute change. Objective - Exam Narrative Exam: Physical exam deferred to reduce risk of transmission of COVID-19. Please refer to primary team's note. - Constitutional Vitals: Vital Signs Temp Pulse Resp BP Pulse Ox 97.2 F L 87 20 135/71 99 10/16/21 12:44 10/16/21 12:44 10/16/21 12:44 10/16/21 12:44 10/16/21 14:07 Temperature -Last 24 Hours Temperature 97.2 F Temperature 98.6 F Temperature 98.0 F Temperature 98.3 F - Labs CBC & Chem 7: 10/14/21 09:23 10/15/21 07:45 Labs: Abnormal lab results 10/15/21 10/15/21 10/16/21 Range/Units 17:03 22:45 12:42 POC Glucose 206 H 179 H 151 H (70-105) mg/dL
== END 2021-10-16 12:30 | DRG 377 ==
LOC: ED 22:16 → 3A 10-07 01:34 → OBSVTOIN 10-08 17:26
PROVIDERS: ADMIT Internal Medicine Geriatric Medicine; ATTEND Internal Medicine
PROC: 30233N1 Transfusion of Nonautologous Red Blood Cells into Peripheral Vein, Percutaneous Approach (ICD-10-PCS; 2021-10-07)
PROC: 0DBM8ZZ Excision of Descending Colon, Via Natural or Artificial Opening Endoscopic (ICD-10-PCS; principal; 2021-10-10)
PROC: 0DBN8ZZ Excision of Sigmoid Colon, Via Natural or Artificial Opening Endoscopic (ICD-10-PCS; 2021-10-10)
PROC: 0DB98ZX Excision of Duodenum, Via Natural or Artificial Opening Endoscopic, Diagnostic (ICD-10-PCS; 2021-10-10)
PROC: 0DB78ZX Excision of Stomach, Pylorus, Via Natural or Artificial Opening Endoscopic, Diagnostic (ICD-10-PCS; 2021-10-10)
DX: K92.2 Gastrointestinal hemorrhage, unspecified (principal); N17.0 Acute kidney failure with tubular necrosis; E43 Unspecified severe protein-calorie malnutrition; U07.1 COVID-19; R19.5 Other fecal abnormalities; Z68.23 Body mass index [BMI] 23.0-23.9, adult; K21.9 Gastro-esophageal reflux disease without esophagitis; Z20.822 Contact with and (suspected) exposure to COVID-19; E11.22 Type 2 diabetes mellitus with diabetic chronic kidney disease; D50.9 Iron deficiency anemia, unspecified; K44.9 Diaphragmatic hernia without obstruction or gangrene; K64.9 Unspecified hemorrhoids; K63.5 Polyp of colon; K64.4 Residual hemorrhoidal skin tags; K64.8 Other hemorrhoids
CPT/HCPCS: 36415; 71045; 76770; 78580; 80048; 80053; 82271; 82570; 82728; 82962; 83550; 83615; 83735; 84156; 84300; 85014; 85018; 85025; 85027; 85379; 85610; 85730; 86140; 86850; 86900; 86901; 86920; 88305; 88342; 93970; G0378; J3490; J7070; J7120; Q0162; Q9967; A9540; C9113; J1100; J1630; J1815; J2270; J2704; J3475; J7030; J7040; J8540; P9016; U0003